=== PATIENT | male | born 1975 | race Caucasian/White ===

== ENCOUNTER 2016-12-01 16:00 | Observation (INO) | payer BC, MEDICAID ==
[2016-12-01] MEDS ORDERED: MORPHINE SULFATE INJ 2 MG IVP PRN (17:47)
[2016-12-01 18:21] LABS: BASOPHILS # (AUTO) 0.1 X10^3/uL (0.0-0.1); BASOPHILS % (AUTO) 0.6 % (0.2-1.0); EOSINOPHILS % (AUTO) 0.5 % (0.9-2.9); HEMATOCRIT 42.9 % (42.0-54.0); HEMOGLOBIN 14.5 g/dL (13.5-18.0); LYMPHOCYTES # (AUTO) 2.2 X10^3/uL (1.3-2.9); LYMPHOCYTES % (AUTO) 24.6 % (21.0-51.0); MEAN CORPUSCULAR HEMOGLOBIN 29.5 pg (27.0-34.0); MEAN CORPUSCULAR HGB CONC 33.7 g/dL (33.0-35.0); MEAN CORPUSCULAR VOLUME 87.3 fL (80.0-100.0); MEAN PLATELET VOLUME 9.9 fL (7.4-11.0); MONOCYTES # (AUTO) 0.4 x10^3/uL (0.3-0.8); MONOCYTES % (AUTO) 4.9 % (0.0-13.0); NEUTROPHILS # (AUTO) 6.3 x10^3/uL (2.2-4.8); NEUTROPHILS % (AUTO) 69.4 % (42.0-75.0); PLATELET COUNT 223 X10^3/uL (150.0-450.0); RED BLOOD COUNT 4.91 X10^6/uL (4.7-6.0); RED CELL DISTRIBUTION WIDTH 13.4 % (11.6-16.5); WHITE BLOOD COUNT 9.1 X10^3/uL (3.6-10.0)
[2016-12-01 18:34] LABS: ALANINE AMINOTRANSFERASE 22 Units/L (12-78); ALBUMIN 3.4 g/dL (3.4-5.0); ALKALINE PHOSPHATASE 111 Units/L (46-116); AMYLASE 105 Units/L (25-115); ASPARTATE AMINO TRANSFERASE 13 Units/L (15-37); BLOOD UREA NITROGEN 15 mg/dL (7-18); CARBON DIOXIDE 23.8 mmol/L (21-32); CHLORIDE 106 mmol/L (98-107); CHOL/HDL RATIO 3.3 (0.0-5.0); COR NA(FOR HYPERGLY) 142 mmol/L (136-145); CREATININE 1.32 mg/dL (0.70-1.30); GLUCOSE 134 mg/dL (65-99); LIPASE 668 Units/L (73-393); SODIUM 141 mmol/L (136-145); TOTAL PROTEIN 7.5 g/dL (6.4-8.2); eGFR BLACK RACES > 60 (>60); eGFR NON BLACK RACES > 60 (>60)
[2016-12-01] MEDS: PROTONIX INJ 40 MG VIAL 40 MG in NS 50 ML IV 50 ML IV SCH (19:30)
[2016-12-01] MEDS ORDERED: NS 250 ML IV 250 ML IV PRN (19:35)
[2016-12-01] MEDS: PHENERGAN INJ 25 MG IVP PRN (19:49)
--- NOTE | 2016-12-01 22:35 | DR.H&P ---
H&P - History & Physical for Day of: H&P Date: 12/01/16 - Chief Complaint Chief Complaint: Nausea and vomiting with abdominal pain. Elevated Lipase. - Allergies Allergies/Adverse Reactions: Allergies Allergy/AdvReac Type Severity Reaction Status Date / Time Penicillins AdvReac Severe ANAPHALEXIS Verified 12/01/16 18:37 REACTION - History of Present Illness History of Present Illness: The patient is a 41yo WM who is having increasing nausea with vomiting and abdominal pain. Patient states his Lipase has been increasing. States it was in the 400 range yesterday. Patient had Gastric Sleeve in April. Has been unable to eat since that time. States that he almost in August secondary to K= in 1.6 range and heart rate 25. States he has recently spent 5 weeks in [place]. 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 States that he is on TPN via a PICC. Does state that he had Cholecystectomy in thinking could be cause. - Past Surgical History Surgical History: Abdominal Surgery, Cholecystectomy Additional Surgical History: Gastric Sleeve 05/04, PICC Line - Family History Family Medical History: Hypertension - Social History Does patient currently use any type of tobacco product: No Have you used tobacco products in the last 12 months: No Type of Tobacco Use: None Does any household member use tobacco: No Alcohol Use: None Drug Use: None - Review of Systems Constitutional: Malaise Eyes: No Symptoms Reported ENT: No Symptoms Reported Respiratory: No Symptoms Reported Cardiovascular: No Symptoms Reported Gastrointestinal: See HPI, Nausea, Vomiting Genitourinary: No Symptoms Reported Musculoskeletal: No Symptoms Reported Skin: No Symptoms Reported Neurological: No Symptoms Reported - Physical Exam Vital Signs: Temperature 98.4 F Pulse Rate [Right Brachial] 60 Respiratory Rate 20 Blood Pressure [Right Arm] 126/60 O2 Sat by Pulse Oximetry 99 Oriented: Normal Eyes: Normal Ear: Normal Nose: Normal Throat: Normal Respiratory: Clear Throughout Cardiovascular: Normal : Normal Auscultation: Bowel Sounds: Normal Palpation: Normal Tenderness: LUQ, Epigastric Skin: Normal Musculoskeletal: Normal Psychiatric: Normal Mood Description: Calm Affect: Normal Speech Pattern: Clear - Assessment/Plan (1) Acute pancreatitis Qualifiers: Pancreatitis type: idiopathic Acute pancreatitis complication: A Qualified Code(s): K85.00 - Idiopathic acute pancreatitis without necrosis or infection Status: Acute Plan: NPO, Continue TPN, Shantelle/Lipase (2) Nausea and vomiting Qualifiers: Vomiting type: V Vomiting Intractability: intractable Status: Acute Plan: IV Phenergan, Zofran, Reglan, Protonix
[2016-12-01] MEDS ORDERED: PHARMACY CONSULT - TPN XX SCH (23:00)
[2016-12-01] MEDS: DILAUDID IVP PRN (23:08)
[2016-12-02 00:13] LABS: BILIRUBIN,URINE NEGATIVE (NEGATIVE); BLOOD/HEMOGLOBIN,URINE 1+ (NEGATIVE); GLUCOSE, URINE NEGATIVE (NEGATIVE); KETONES,URINE NEGATIVE (NEGATIVE); LEUKOCYTE ESTERASE ,URINE NEGATIVE (NEGATIVE); NITRITES,URINE NEGATIVE (NEGATIVE); PROTEIN,URINE 1+ (NEGATIVE); UROBILINOGEN,URINE NORMAL (NORMAL)
[2016-12-02 00:16] LABS: APPEARANCE,URINE CLEAR (CLEAR); BACTERIA,URINE TRACE /HPF (NEGATIVE); COLOR,URINE YELLOW (YELLOW); HYALINE CASTS, URINE FEW /LPF (NEGATIVE); MUCUS,URINE FEW /HPF (NEGATIVE); RBC,URINE 0-2 /HPF (NEGATIVE); SQUAMOUS EPITHELIAL CELL,UR RARE /HPF (NEGATIVE)
[2016-12-02] MEDS: PHENERGAN INJ 25 MG IVP PRN ×4 (03:44→23:37)
[2016-12-02] MEDS: DILAUDID IVP PRN ×5 (03:45→23:37)
[2016-12-02 05:44] LABS: BASOPHILS % (AUTO) 0.4 % (0.2-1.0); EOSINOPHILS # (AUTO) 0.1 x10^3/uL (0.0-0.2); EOSINOPHILS % (AUTO) 1.2 % (0.9-2.9); HEMATOCRIT 40.1 % (42.0-54.0); HEMOGLOBIN 13.4 g/dL (13.5-18.0); LYMPHOCYTES # (AUTO) 3.2 X10^3/uL (1.3-2.9); LYMPHOCYTES % (AUTO) 34.7 % (21.0-51.0); MEAN CORPUSCULAR HEMOGLOBIN 29.5 pg (27.0-34.0); MEAN CORPUSCULAR HGB CONC 33.4 g/dL (33.0-35.0); MEAN CORPUSCULAR VOLUME 88.3 fL (80.0-100.0); MEAN PLATELET VOLUME 10.8 fL (7.4-11.0); MONOCYTES # (AUTO) 0.7 x10^3/uL (0.3-0.8); MONOCYTES % (AUTO) 7.8 % (0.0-13.0); NEUTROPHILS # (AUTO) 5.1 x10^3/uL (2.2-4.8); NEUTROPHILS % (AUTO) 55.9 % (42.0-75.0); PLATELET COUNT 192 X10^3/uL (150.0-450.0); RED BLOOD COUNT 4.55 X10^6/uL (4.7-6.0); RED CELL DISTRIBUTION WIDTH 13.4 % (11.6-16.5); WHITE BLOOD COUNT 9.2 X10^3/uL (3.6-10.0)
[2016-12-02 05:51] LABS: ALANINE AMINOTRANSFERASE 16 Units/L (12-78); ALBUMIN 3.1 g/dL (3.4-5.0); ALKALINE PHOSPHATASE 100 Units/L (46-116); AMYLASE 106 Units/L (25-115); ASPARTATE AMINO TRANSFERASE 15 Units/L (15-37); BLOOD UREA NITROGEN 17 mg/dL (7-18); CARBON DIOXIDE 22.9 mmol/L (21-32); CHLORIDE 109 mmol/L (98-107); COR CA(FOR HYPOALB) 9.7 mg/dL (8.5-10.1); GLUCOSE 83 mg/dL (65-99); LIPASE 301 Units/L (73-393); SODIUM 141 mmol/L (136-145); eGFR BLACK RACES > 60 (>60); eGFR NON BLACK RACES > 60 (>60)
[2016-12-02] MEDS: PROTONIX INJ 40 MG VIAL 40 MG in NS 50 ML IV 50 ML IV SCH (09:08)
[2016-12-02] MEDS ORDERED: CLINIMIX 4.25 %/10 % 1,000 ML with MVI INJ (ADULT) 10 ML, TRACE ELEMENTS INJ 10 ML, TPN... IV SCH ×9 (10:00)
[2016-12-02] MEDS ORDERED: NS 25 ML IV 25 ML IV ONE (10:17)
[2016-12-02 10:48] VITALS: BMI 30.7
[2016-12-02] MEDS: REGLAN INJ 10 MG VIAL IVP PRN (13:17)
[2016-12-02] MEDS ORDERED: NS 100 ML IV 100 ML IV ONE (16:40)
[2016-12-02] MEDS: CLINIMIX 4.25 %/10 % 1,000 ML with MVI INJ (ADULT) 10 ML, TRACE ELEMENTS INJ 10 ML, TPN... IV SCH ×10 (17:38→23:36)
[2016-12-02] MEDS: LIPOSYN III 20% 250ML 250 ML IV SCH (21:50)
[2016-12-02] MEDS: ZOFRAN INJ 4 MG VIAL IVP PRN (22:13)
[2016-12-03] MEDS: DILAUDID IVP PRN (06:00)
[2016-12-03] MEDS: PHENERGAN INJ 25 MG IVP PRN ×3 (06:00→20:14)
[2016-12-03] MEDS: CLINIMIX 4.25 %/10 % 1,000 ML with MVI INJ (ADULT) 10 ML, TRACE ELEMENTS INJ 10 ML, TPN... IV SCH ×5 (06:07)
[2016-12-03 06:11] LABS: BASOPHILS # (AUTO) 0.1 X10^3/uL (0.0-0.1); BASOPHILS % (AUTO) 0.6 % (0.2-1.0); EOSINOPHILS # (AUTO) 0.1 x10^3/uL (0.0-0.2); EOSINOPHILS % (AUTO) 1.4 % (0.9-2.9); HEMATOCRIT 38.6 % (42.0-54.0); HEMOGLOBIN 12.6 g/dL (13.5-18.0); LYMPHOCYTES % (AUTO) 35.3 % (21.0-51.0); MEAN CORPUSCULAR HEMOGLOBIN 28.9 pg (27.0-34.0); MEAN CORPUSCULAR HGB CONC 32.7 g/dL (33.0-35.0); MEAN CORPUSCULAR VOLUME 88.4 fL (80.0-100.0); MEAN PLATELET VOLUME 10.3 fL (7.4-11.0); MONOCYTES # (AUTO) 0.6 x10^3/uL (0.3-0.8); MONOCYTES % (AUTO) 6.7 % (0.0-13.0); NEUTROPHILS # (AUTO) 4.8 x10^3/uL (2.2-4.8); PLATELET COUNT 165 X10^3/uL (150.0-450.0); RED BLOOD COUNT 4.37 X10^6/uL (4.7-6.0); RED CELL DISTRIBUTION WIDTH 13.6 % (11.6-16.5); WHITE BLOOD COUNT 8.6 X10^3/uL (3.6-10.0)
[2016-12-03 06:50] LABS: ALANINE AMINOTRANSFERASE 20 Units/L (12-78); ALBUMIN 2.9 g/dL (3.4-5.0); ALKALINE PHOSPHATASE 96 Units/L (46-116); AMYLASE 99 Units/L (25-115); ASPARTATE AMINO TRANSFERASE 13 Units/L (15-37); BLOOD UREA NITROGEN 18 mg/dL (7-18); CALCIUM 8.8 mg/dL (8.5-10.1); CARBON DIOXIDE 22.5 mmol/L (21-32); CHLORIDE 108 mmol/L (98-107); COR CA(FOR HYPOALB) 9.7 mg/dL (8.5-10.1); CREATININE 0.97 mg/dL (0.70-1.30); GLUCOSE 96 mg/dL (65-99); LIPASE 384 Units/L (73-393); SODIUM 141 mmol/L (136-145); TOTAL PROTEIN 6.4 g/dL (6.4-8.2); eGFR BLACK RACES > 60 (>60); eGFR NON BLACK RACES > 60 (>60)
--- NOTE | 2016-12-03 08:29 | CT ---
HISTORY: Nausea, vomiting, gastric sleeve procedure April 2016 Study: CT abdomen with contrast Comparison: Technique: Multiple axial images of the abdomen were obtained with IV contrast. Oral contrast was administered . Dose reduction techniques including Automated Exposure Control (AEC) and adjustment of mA and kV w ere utilized. Findings: There is a 5 mm noncalcified pulmonary nodule in the right lower lobe. Otherwise the lung bases are clear. Normal-sized heart with sternotomy changes noted. The spleen, pancreas, kidneys, and adrenal glands are normal. The gallbladder is removed. There is a hypodense lesion seen in the right hepati c lobe (axial image 44) that may represent a hemangioma or cyst. No free intraperitoneal air. No evidence of intestinal obstruction or inflammation. Postsurgical wai nges related to gastric sleeve are noted without evidence of intestinal obstruction in the field of view. No gross free fluid. The soft tissues and osseous structures are unremarkable. The vascular structures are unremarkable. No pathologically enlarged lymph nodes are identified. IMPRESSION: 1. Postsurgical changes related to gastric sleeve without complication. 2. 5 mm noncalcified right lower lobe pulmonary nodule. CT followup is recommended in 6 months. 3. 2 cm hypodense lesion in the peripheral right hepatic lobe, not completely characterized. Finding s could represent a cyst or hemangioma. Reported By:
--- NOTE | 2016-12-03 08:36 | PCM.PROG ---
Progress Note - Progress Note for Day of Date: 12/02/16 - Subjective Subjective: CO CONTINUED ABDOMINAL PAIN, N/V - Past Medical Family Social History Past Med/Fam/Surg Hx: No changes since H&P Allergies: Allergies Penicillins Adverse Reaction (Severe, Verified 12/01/16 18:37) ANAPHALEXIS REACTION - Review of Systems ROS: No change since H&P - Vital Signs and I&O's Vital Signs: Temperature 98.1 F Pulse Rate [Right Brachial] 66 Respiratory Rate 18 Blood Pressure [Right Arm] 116/56 O2 Sat by Pulse Oximetry 96 Intake and Output: Intake & Output 11/30/16 12/01/16 12/02/16 12/03/16 11:59 11:59 11:59 11:59 Intake Total 180 1999 Output Total 0 2 Balance 180 1997 - Physical Exam Oriented: Normal Eyes: Normal Ear: Normal Nose: Normal Throat: Normal Cardiovascular: Normal : Normal Auscultation: Bowel Sounds: Normal Tenderness: LUQ, Epigastric Skin: Normal Musculoskeletal: Normal Psychiatric: Normal Mood Description: Calm Affect: Normal Speech Pattern: Clear, Appropriate - Laboratory and Diagnostics Result Diagrams: 12/03/16 04:50 12/03/16 04:50 Labs: Laboratory WBC 8.6 X10^3/uL (3.6-10.0) 12/03/16 04:50 RBC 4.37 X10^6/uL (4.7-6.0) L 12/03/16 04:50 Hgb 12.6 g/dL (13.5-18.0) L 12/03/16 04:50 Hct 38.6 % (42.0-54.0) L 12/03/16 04:50 MCV 88.4 fL (80.0-100.0) 12/03/16 04:50 MCH 28.9 pg (27.0-34.0) 12/03/16 04:50 MCHC 32.7 g/dL (33.0-35.0) L 12/03/16 04:50 RDW 13.6 % (11.6-16.5) 12/03/16 04:50 Plt Count 165 X10^3/uL (150.0-450.0) 12/03/16 04:50 MPV 10.3 fL (7.4-11.0) 12/03/16 04:50 Neut % 56.0 % (42.0-75.0) 12/03/16 04:50 Lymph % 35.3 % (21.0-51.0) 12/03/16 04:50 [place] % 6.7 % (0.0-13.0) 12/03/16 04:50 Eos % 1.4 % (0.9-2.9) 12/03/16 04:50 Baso % 0.6 % (0.2-1.0) 12/03/16 04:50 Neut # 4.8 x10^3/uL (2.2-4.8) 12/03/16 04:50 Lymph # 3.0 X10^3/uL (1.3-2.9) H 12/03/16 04:50 [place] # 0.6 x10^3/uL (0.3-0.8) 12/03/16 04:50 Eos # 0.1 x10^3/uL (0.0-0.2) 12/03/16 04:50 Baso # 0.1 X10^3/uL (0.0-0.1) 12/03/16 04:50 Absolute Nucleated RBC 0.2 /100WBC 12/03/16 04:50 Sodium 141 mmol/L (136-145) 12/03/16 04:50 Corrected Sodium TNP 12/03/16 04:50 Potassium 4.6 mmol/L (3.5-5.1) 12/03/16 04:50 Chloride 108 mmol/L (98-107) H 12/03/16 04:50 Carbon Dioxide 22.5 mmol/L (21-32) 12/03/16 04:50 BUN 18 mg/dL (7-18) 12/03/16 04:50 Creatinine 0.97 mg/dL (0.70-1.30) 12/03/16 04:50 Est GFR (MDRD) Af Amer > 60 (>60) 12/03/16 04:50 Est GFR (MDRD) Non-Af > 60 (>60) 12/03/16 04:50 Glucose 96 mg/dL (65-99) 12/03/16 04:50 Calcium 8.8 mg/dL (8.5-10.1) 12/03/16 04:50 Corrected Calcium 9.7 mg/dL (8.5-10.1) 12/03/16 04:50 Total Bilirubin 0.10 mg/dL (0.2-1.0) L 12/03/16 04:50 AST 13 Units/L (15-37) L 12/03/16 04:50 ALT 20 Units/L (12-78) 12/03/16 04:50 Alkaline Phosphatase 96 Units/L (46-116) 12/03/16 04:50 Total Protein 6.4 g/dL (6.4-8.2) 12/03/16 04:50 Albumin 2.9 g/dL (3.4-5.0) L 12/03/16 04:50 Globulin 3.5 g/dL (2.5-4.5) 12/03/16 04:50 Albumin/Globulin Ratio 0.8 Ratio (1.1-2.1) L 12/03/16 04:50 Triglycerides 99 mg/dL (0-150) 12/01/16 18:15 Cholesterol 82 mg/dL (0-200) 12/01/16 18:15 LDL Cholesterol, Calc 37 mg/dL (0-100) 12/01/16 18:15 HDL Cholesterol 25 mg/dL (40-60) L 12/01/16 18:15 Cholesterol/HDL Ratio 3.3 (0.0-5.0) 12/01/16 18:15 Amylase 99 Units/L (25-115) 12/03/16 04:50 Lipase 384 Units/L (73-393) 12/03/16 04:50 Specimen Type Clean catch urine 12/01/16 23:45 Urine Color Yellow (YELLOW) 12/01/16 23:45 Urine Appearance Clear (CLEAR) 12/01/16 23:45 Urine pH 5.0 (5.0 - 8.0) 12/01/16 23:45 Ur Specific [place] 1.025 (1.000-1.030) 12/01/16 23:45 Urine Protein 1+ (NEGATIVE) 12/01/16 23:45 Urine Glucose (UA) Negative (NEGATIVE) 12/01/16 23:45 Urine Ketones Negative (NEGATIVE) 12/01/16 23:45 Urine Occult Blood 1+ (NEGATIVE) 12/01/16 23:45 Urine Nitrite Negative (NEGATIVE) 12/01/16 23:45 Urine Bilirubin Negative (NEGATIVE) 12/01/16 23:45 Urine Urobilinogen Normal (NORMAL) 12/01/16 23:45 Ur Leukocyte Esterase Negative (NEGATIVE) 12/01/16 23:45 Urine RBC 0-2 /HPF (NEGATIVE) 12/01/16 23:45 Urine WBC 0-1 /HPF (NEGATIVE) 12/01/16 23:45 Ur Squamous Epith Cells Rare /HPF (NEGATIVE) 12/01/16 23:45 Urine Bacteria Trace /HPF (NEGATIVE) 12/01/16 23:45 Hyaline Casts Few /LPF (NEGATIVE) 12/01/16 23:45 Urine Mucus Few /HPF (NEGATIVE) 12/01/16 23:45 Ur Culture Indicated? No/not indicated 12/01/16 23:45 - Plan (1) Acute pancreatitis Status: Acute Qualifiers: Pancreatitis type: idiopathic Acute pancreatitis complication: A Qualified Code(s): K85.00 - Idiopathic acute pancreatitis without necrosis or infection Plan: NPO, Continue TPN, Shantelle/Lipase IMPROVING, IV HYDRATION. REPEAT AM LABS, PAIN CONTROL (2) Nausea and vomiting Status: Acute Qualifiers: Vomiting type: V Vomiting Intractability: intractable Plan: IV Phenergan, Zofran, Reglan, Protonix
[2016-12-03] MEDS: PROTONIX INJ 40 MG VIAL 40 MG in NS 50 ML IV 50 ML IV SCH (09:44)
[2016-12-03] MEDS: ZOFRAN INJ 4 MG VIAL IVP PRN (09:44)
[2016-12-03] MEDS: REGLAN INJ 10 MG VIAL IVP PRN (09:44)
[2016-12-03] MEDS ORDERED: DILAUDID IVP PRN (12:16)
[2016-12-03] MEDS: PERCOCET TAB 5/325 MG PO PRN ×2 (13:57→20:15)
--- NOTE | 2016-12-03 14:52 | PCM.PROG ---
Progress Note - Progress Note for Day of Date: 12/03/16 - Subjective Subjective: CO CONTINUED ABDOMINAL PAIN AND NAUSEA. PT DOES FEEL LIKE HE COULD EAT. AMYLASE AND LIPASE NORMAL THIS AM. PT CLEAR LIQUID DIET ORDERED, DECREASE DILAUDID IV, PERCOCET PO. MONITOR, REPEAT AM LABS - Past Medical Family Social History Past Med/Fam/Surg Hx: No changes since H&P Allergies: Allergies Penicillins Adverse Reaction (Severe, Verified 12/01/16 18:37) ANAPHALEXIS REACTION - Review of Systems ROS: No change since H&P - Vital Signs and I&O's Vital Signs: Temperature 98.1 F Pulse Rate [Right Brachial] 66 Respiratory Rate 18 Blood Pressure [Right Arm] 116/56 O2 Sat by Pulse Oximetry 96 Intake and Output: Intake & Output 12/01/16 12/02/16 12/03/16 12/04/16 11:59 11:59 11:59 11:59 Intake Total 180 2000 Output Total 0 2 Balance 180 1997 - Physical Exam Oriented: Normal Eyes: Normal Ear: Normal Nose: Normal Throat: Normal Cardiovascular: Normal : Normal Auscultation: Bowel Sounds: Normal Tenderness: LUQ, Epigastric Skin: Normal Musculoskeletal: Normal Psychiatric: Normal Mood Description: Calm Affect: Normal Speech Pattern: Clear, Appropriate - Laboratory and Diagnostics Result Diagrams: 12/03/16 04:50 12/03/16 04:50 Labs: Laboratory WBC 8.6 X10^3/uL (3.6-10.0) 12/03/16 04:50 RBC 4.37 X10^6/uL (4.7-6.0) L 12/03/16 04:50 Hgb 12.6 g/dL (13.5-18.0) L 12/03/16 04:50 Hct 38.6 % (42.0-54.0) L 12/03/16 04:50 MCV 88.4 fL (80.0-100.0) 12/03/16 04:50 MCH 28.9 pg (27.0-34.0) 12/03/16 04:50 MCHC 32.7 g/dL (33.0-35.0) L 12/03/16 04:50 RDW 13.6 % (11.6-16.5) 12/03/16 04:50 Plt Count 165 X10^3/uL (150.0-450.0) 12/03/16 04:50 MPV 10.3 fL (7.4-11.0) 12/03/16 04:50 Neut % 56.0 % (42.0-75.0) 12/03/16 04:50 Lymph % 35.3 % (21.0-51.0) 12/03/16 04:50 [place] % 6.7 % (0.0-13.0) 12/03/16 04:50 Eos % 1.4 % (0.9-2.9) 12/03/16 04:50 Baso % 0.6 % (0.2-1.0) 12/03/16 04:50 Neut # 4.8 x10^3/uL (2.2-4.8) 12/03/16 04:50 Lymph # 3.0 X10^3/uL (1.3-2.9) H 12/03/16 04:50 [place] # 0.6 x10^3/uL (0.3-0.8) 12/03/16 04:50 Eos # 0.1 x10^3/uL (0.0-0.2) 12/03/16 04:50 Baso # 0.1 X10^3/uL (0.0-0.1) 12/03/16 04:50 Absolute Nucleated RBC 0.2 /100WBC 12/03/16 04:50 Sodium 141 mmol/L (136-145) 12/03/16 04:50 Corrected Sodium TNP 12/03/16 04:50 Potassium 4.6 mmol/L (3.5-5.1) 12/03/16 04:50 Chloride 108 mmol/L (98-107) H 12/03/16 04:50 Carbon Dioxide 22.5 mmol/L (21-32) 12/03/16 04:50 BUN 18 mg/dL (7-18) 12/03/16 04:50 Creatinine 0.97 mg/dL (0.70-1.30) 12/03/16 04:50 Est GFR (MDRD) Af Amer > 60 (>60) 12/03/16 04:50 Est GFR (MDRD) Non-Af > 60 (>60) 12/03/16 04:50 Glucose 96 mg/dL (65-99) 12/03/16 04:50 Calcium 8.8 mg/dL (8.5-10.1) 12/03/16 04:50 Corrected Calcium 9.7 mg/dL (8.5-10.1) 12/03/16 04:50 Total Bilirubin 0.10 mg/dL (0.2-1.0) L 12/03/16 04:50 AST 13 Units/L (15-37) L 12/03/16 04:50 ALT 20 Units/L (12-78) 12/03/16 04:50 Alkaline Phosphatase 96 Units/L (46-116) 12/03/16 04:50 Total Protein 6.4 g/dL (6.4-8.2) 12/03/16 04:50 Albumin 2.9 g/dL (3.4-5.0) L 12/03/16 04:50 Globulin 3.5 g/dL (2.5-4.5) 12/03/16 04:50 Albumin/Globulin Ratio 0.8 Ratio (1.1-2.1) L 12/03/16 04:50 Triglycerides 99 mg/dL (0-150) 12/01/16 18:15 Cholesterol 82 mg/dL (0-200) 12/01/16 18:15 LDL Cholesterol, Calc 37 mg/dL (0-100) 12/01/16 18:15 HDL Cholesterol 25 mg/dL (40-60) L 12/01/16 18:15 Cholesterol/HDL Ratio 3.3 (0.0-5.0) 12/01/16 18:15 Amylase 99 Units/L (25-115) 12/03/16 04:50 Lipase 384 Units/L (73-393) 12/03/16 04:50 Specimen Type Clean catch urine 12/01/16 23:45 Urine Color Yellow (YELLOW) 12/01/16 23:45 Urine Appearance Clear (CLEAR) 12/01/16 23:45 Urine pH 5.0 (5.0 - 8.0) 12/01/16 23:45 Ur Specific [place] 1.025 (1.000-1.030) 12/01/16 23:45 Urine Protein 1+ (NEGATIVE) 12/01/16 23:45 Urine Glucose (UA) Negative (NEGATIVE) 12/01/16 23:45 Urine Ketones Negative (NEGATIVE) 12/01/16 23:45 Urine Occult Blood 1+ (NEGATIVE) 12/01/16 23:45 Urine Nitrite Negative (NEGATIVE) 12/01/16 23:45 Urine Bilirubin Negative (NEGATIVE) 12/01/16 23:45 Urine Urobilinogen Normal (NORMAL) 12/01/16 23:45 Ur Leukocyte Esterase Negative (NEGATIVE) 12/01/16 23:45 Urine RBC 0-2 /HPF (NEGATIVE) 12/01/16 23:45 Urine WBC 0-1 /HPF (NEGATIVE) 12/01/16 23:45 Ur Squamous Epith Cells Rare /HPF (NEGATIVE) 12/01/16 23:45 Urine Bacteria Trace /HPF (NEGATIVE) 12/01/16 23:45 Hyaline Casts Few /LPF (NEGATIVE) 12/01/16 23:45 Urine Mucus Few /HPF (NEGATIVE) 12/01/16 23:45 Ur Culture Indicated? No/not indicated 12/01/16 23:45 - Plan (1) Acute pancreatitis Status: Acute Qualifiers: Pancreatitis type: idiopathic Acute pancreatitis complication: A Qualified Code(s): K85.00 - Idiopathic acute pancreatitis without necrosis or infection Plan: NPO, Continue TPN, Shantelle/Lipase IMPROVING, IV HYDRATION. REPEAT AM LABS, PAIN CONTROL. CT REPORT ON CHART, NO ACUTE FINDINGS (2) Nausea and vomiting Status: Acute Qualifiers: Vomiting type: V Vomiting Intractability: intractable Plan: IV Phenergan, Zofran, Reglan, Protonix (3) Pulmonary nodule Status: Acute Plan: SEE CT REPORT, WILL REQUIRE OUT FOLLOW UP. FAX CT REPORT TO PCP
[2016-12-03] MEDS ORDERED: CLINIMIX 4.25 %/10 % 1,000 ML with MVI INJ (ADULT) 10 ML, TRACE ELEMENTS INJ 10 ML, TPN... IV SCH ×5 (16:00)
[2016-12-03] MEDS ORDERED: ATARAX TAB 25 MG PO PRN (16:02)
[2016-12-03] MEDS ORDERED: ULTRAM PO PRN (16:02)
[2016-12-03] MEDS: LIPOSYN III 20% 250ML 250 ML IV SCH (20:15)
[2016-12-03] MEDS ORDERED: AMBIEN PO SCH (21:00)
[2016-12-04] MEDS: PERCOCET TAB 5/325 MG PO PRN (03:44)
[2016-12-04] MEDS: PHENERGAN INJ 25 MG IVP PRN (03:45)
[2016-12-04] MEDS ORDERED: PATIENT'S HOME MEDICATION PO SCH (09:00)
[2016-12-04 09:35] VITALS: BP 101/61
[2016-12-04] MEDS: PROTONIX INJ 40 MG VIAL 40 MG in NS 50 ML IV 50 ML IV SCH (10:29)
== END 2016-12-04 11:30 | disposition home or self-care (01) ==
LOC: MED/SURG 16:00
PROVIDERS: ADMIT Internal Medicine; ATTEND Internal Medicine
DX: K85.00 Idiopathic acute pancreatitis without necrosis or infection (principal); R11.2 Nausea with vomiting, unspecified; R74.8 Abnormal levels of other serum enzymes; R91.1 Solitary pulmonary nodule; D64.89 Other specified anemias; Z93.1 Gastrostomy status; R10.84 Generalized abdominal pain
CPT/HCPCS: 36415; 74160; 80053; 80061; 81001; 82150; 83690; 85025; A4216; A4222; B4189; C9113; G0378; J2270; J2405; J2550; J2765

== ENCOUNTER 2017-01-26 11:21 | Day surgery (SDC) | payer BC, MEDICAID ==
[2017-01-26] MEDS ORDERED: XYLOCAINE 1 % (PLAIN) ONE (12:08)
[2017-01-26 12:32] VITALS: BP 111/68
--- NOTE | 2017-01-26 12:48 | DR.H&P ---
H&P - History & Physical for Day of: H&P Date: 01/26/17 - Chief Complaint Chief Complaint: My PICC line is infected - Allergies Allergies/Adverse Reactions: Allergies Allergy/AdvReac Type Severity Reaction Status Date / Time Penicillins AdvReac Severe ANAPHALEXIS Verified 12/01/16 18:37 REACTION - History of Present Illness History of Present Illness: Pt is S/P gastric sleve. No unable to tolerate liquids or solids PO. Has been on correction TPN at home with PICC that was placed in Sep 2016. Recent increase in WBCs. PICC considered as source by PCP. Here for removal and replacement of PICC - Past Surgical History Surgical History: Abdominal Surgery, Cholecystectomy, Other Additional Surgical History: Gastric Sleeve 05/04, PICC Line; Median Sternotomy for Thymus biospy - Family History Family Medical History: Hypertension - Social History Does patient currently use any type of tobacco product: Yes Have you used tobacco products in the last 12 months: Yes Type of Tobacco Use: Cigarettes Alcohol Use: Occasionally Drug Use: None - Review of Systems Constitutional: See HPI Eyes: No Symptoms Reported ENT: No Symptoms Reported Respiratory: No Symptoms Reported Cardiovascular: No Symptoms Reported Gastrointestinal: See HPI, Nausea, Vomiting, Abdominal Pain Genitourinary: No Symptoms Reported Musculoskeletal: No Symptoms Reported Skin: No Symptoms Reported Neurological: No Symptoms Reported - Physical Exam Vital Signs: Temperature 97.0 F Pulse Rate 60 Respiratory Rate 18 Blood Pressure [Right Arm] 101/61 Blood Pressure 111/68 O2 Sat by Pulse Oximetry 100 Oriented: Normal Eyes: Normal Ear: Normal Nose: Normal Throat: Normal Respiratory: Clear Throughout Cardiovascular: Normal : Normal Auscultation: Bowel Sounds: Normal Palpation: Normal Tenderness: Normal Skin: Other (Left UE PICC with dressing CDI no redness swelling or erthema) Musculoskeletal: Normal Psychiatric: Normal Mood Description: Calm, Appropriate Affect: Normal Speech Pattern: Clear, Appropriate - Assessment/Plan (1) Malnutrition Status: Acute (2) Nausea and vomiting Qualifiers: Vomiting type: cyclical vomiting Vomiting Intractability: intractable Qualified Code(s): G43.A1 - Cyclical vomiting, intractable Status: Acute Plan: Removal of Left PICC with skin and tip C/S. Replacement of PICC to RUE Procedures (ALL) - Central Line Placement PCM.CLCO: written consent Time out performed: Yes Patient placed pm monitor/pulse ox: Yes MD prep: mask, gown, gloves Centrial line prep: chlorhexidine scrub, sterile drapes applied Local anesthsia used: lidocane 1% Ultrasound used for placement: Yes (R bascillic with adequate patency and caliber) Central line lumen ininserted: double (5fr double Lumen power PICC) Post procedure: good blood return, all ports aspirated, flushed,capped, sterile dressing applied Post procedure xray: tip oc catheter in good position Patient tolerated procedure: Yes Complications: none
--- NOTE | 2017-01-26 12:54 | RAD ---
HISTORY: PICC line placement. Study: Chest one view Comparison: None. Findings: The trachea is midline. The cardiac silhouette is unremarkable. Median sternotomy wires are noted. There is a right-sided PICC line catheter in place, the tip of which projects above the level of the cavoatrial junction. The lungs are clear without focal infiltrate or effusion. The bony thorax is unremarkable. IMPRESSION: 1. No acute cardiopulmonary disease. 2. Right-sided PICC line catheter in place, the tip of which projects over the SVC, above the level of the cavoatrial junction. Reported By:
== END 2017-01-26 12:45 | disposition home or self-care (01) | DRG 316 ==
LOC: SURG1 11:21
PROVIDERS: ATTEND Internal Medicine
PROC: 02HV33Z Insertion of Infusion Device into Superior Vena Cava, Percutaneous Approach (ICD-10-PCS; principal; 2017-01-26)
PROC: 02PYX3Z Removal of Infusion Device from Great Vessel, External Approach (ICD-10-PCS; principal; 2017-01-26)
PROC: B548ZZA Ultrasonography of Superior Vena Cava, Guidance (ICD-10-PCS; principal; 2017-01-26)
DX: T80.218A Other infection due to central venous catheter, initial encounter (principal); R62.7 Adult failure to thrive; Y83.2 Surgical operation with anastomosis, bypass or graft as the cause of abnormal reaction of the patient, or of later complication, without mention of misadventure at the time of the procedure
CPT/HCPCS: 71010; 87070; 87075; 87077; 87186; 87205; A4222; J2001

== ENCOUNTER 2017-03-29 11:32 | Observation (INO) | payer BC, MEDICAID ==
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
[2017-03-29] MEDS ORDERED: ZOFRAN INJ 4 MG VIAL IVP PRN (13:42)
[2017-03-29] MEDS ORDERED: PEPCID 20 MG IV PREMIX* 20 MG/50 ML BAG IV PRN (13:42)
[2017-03-29] MEDS ORDERED: MORPHINE SULFATE INJ 2 MG IVP PRN (13:42)
[2017-03-29 14:24] LABS: MAGNESIUM 1.2 mg/dL (1.7-2.9)
[2017-03-29] MEDS: NS 1000 ML 1,000 ML IV SCH (14:49)
[2017-03-29] MEDS: PHENERGAN INJ 25 MG IVP PRN (14:49)
--- NOTE | 2017-03-29 14:58 | CT ---
HISTORY: Abdominal pain, recent gastric bypass. Study: CT abdomen and pelvis without contrast Comparison: CT abdomen/pelvis dated December 02, 2016. Technique: Multiple axial images of the abdomen and pelvis were obtained from the lung bases to the pubic symph ysis without the administration of IV contrast. Dose reduction techniques including Automated Expos ure Control (AEC) and adjustment of mA and kV were utilized. Findings: The visualized portions of the lung bases are unremarkable. 2 cm right lateral liver lobe hepatic c yst. The gallbladder is surgically absent. Postsurgical changes status post gastric bypass. Interval placement of a PEG tube within a loop of small bowel. The tube appears to be partially out of the s mall bowel lumen. Otherwise, the liver, spleen, pancreas, kidneys, and adrenal glands are unremarkab le in their CT appearance. No significant mesenteric lymphadenopathy or stranding can be observed. No free fluid or free air is seen within the abdomen. Scattered colonic diverticular without evide nce of diverticulitis. Remaining large and small bowel are unremarkable. The appendix appears normal . The prostate gland demonstrates punctate calcifications, but is otherwise unremarkable. The bladde r is collapsed and not adequately evaluated. The bony structures are grossly intact. IMPRESSION: 1. No CT evidence of acute abdominal/pelvic pathology. 2. PEG tube within a loop of small bowel but appears to be partially extruded. Recommend clinical co rrelation for function. 3. Postsurgical changes as above. Reported By:
[2017-03-29 14:59] VITALS: BMI 30.9
[2017-03-29] MEDS ORDERED: DILAUDID INJ IVP PRN (17:14)
[2017-03-29] MEDS: DILAUDID INJ IVP PRN ×2 (18:23→23:27)
[2017-03-29] MEDS: PERCOCET TAB 5/325 MG PO PRN (20:01)
[2017-03-29] MEDS ORDERED: PHENERGAN TAB 25 MG PO PRN (22:32)
[2017-03-29] MEDS ORDERED: AMBIEN PO PRN (22:32)
[2017-03-29 22:47] LABS: BASOPHILS % (AUTO) 0.7 % (0.2-1.0); EOSINOPHILS # (AUTO) 0.1 x10^3/uL (0.0-0.2); EOSINOPHILS % (AUTO) 1.5 % (0.9-2.9); HEMATOCRIT 38.8 % (42.0-54.0); HEMOGLOBIN 13.3 g/dL (13.5-18.0); LYMPHOCYTES # (AUTO) 2.7 X10^3/uL (1.3-2.9); LYMPHOCYTES % (AUTO) 43.2 % (21.0-51.0); MEAN CORPUSCULAR HEMOGLOBIN 29.7 pg (27.0-34.0); MEAN CORPUSCULAR HGB CONC 34.3 g/dL (33.0-35.0); MEAN CORPUSCULAR VOLUME 86.7 fL (80.0-100.0); MEAN PLATELET VOLUME 10.8 fL (7.4-11.0); MONOCYTES # (AUTO) 0.5 x10^3/uL (0.3-0.8); MONOCYTES % (AUTO) 8.1 % (0.0-13.0); NEUTROPHILS % (AUTO) 46.5 % (42.0-75.0); PLATELET COUNT 112 X10^3/uL (150.0-450.0); RED BLOOD COUNT 4.48 X10^6/uL (4.7-6.0); RED CELL DISTRIBUTION WIDTH 14.2 % (11.6-16.5); WHITE BLOOD COUNT 6.4 X10^3/uL (3.6-10.0)
[2017-03-29 22:52] LABS: BLOOD UREA NITROGEN 6 mg/dL (7-18); CARBON DIOXIDE 32.9 mmol/L (21-32); CHLORIDE 105 mmol/L (98-107); CREATININE 1.02 mg/dL (0.70-1.30); GLUCOSE 90 mg/dL (65-99); SODIUM 143 mmol/L (136-145); eGFR BLACK RACES > 60 (>60); eGFR NON BLACK RACES > 60 (>60)
[2017-03-29 22:57] LABS: ALANINE AMINOTRANSFERASE 17 Units/L (12-78); ALKALINE PHOSPHATASE 101 Units/L (46-116); ASPARTATE AMINO TRANSFERASE 15 Units/L (15-37); COR CA(FOR HYPOALB) 8.8 mg/dL (8.5-10.1); TOTAL PROTEIN 6.2 g/dL (6.4-8.2)
[2017-03-29] MEDS ORDERED: POTASSIUM CHLORIDE LIQ 20 MEQ UDC PO PRN (23:04)
[2017-03-29] MEDS ORDERED: K-LYTE EFFERVESCENT PO PRN (23:04)
[2017-03-29] MEDS ORDERED: K-RIDER 10 MEQ/NS 100 ML 10 MEQ/100 ML BAG IV PRN (23:04)
[2017-03-29] MEDS ORDERED: K-DUR TAB 20 MEQ PO PRN (23:04)
[2017-03-29 23:32] LABS: BILIRUBIN,URINE NEGATIVE (NEGATIVE); BLOOD/HEMOGLOBIN,URINE NEGATIVE (NEGATIVE); GLUCOSE, URINE NEGATIVE (NEGATIVE); KETONES,URINE NEGATIVE (NEGATIVE); LEUKOCYTE ESTERASE ,URINE NEGATIVE (NEGATIVE); NITRITES,URINE NEGATIVE (NEGATIVE); PROTEIN,URINE 2+ (NEGATIVE); UROBILINOGEN,URINE NORMAL (NORMAL)
[2017-03-29 23:40] LABS: APPEARANCE,URINE CLEAR (CLEAR); BACTERIA,URINE TRACE /HPF (NEGATIVE); COLOR,URINE YELLOW (YELLOW); MUCUS,URINE MODERATE /HPF (NEGATIVE); RBC,URINE NONE SEEN /HPF (NEGATIVE); SQUAMOUS EPITHELIAL CELL,UR RARE /HPF (NEGATIVE)
[2017-03-29] MEDS: MAGNESIUM SULFATE 1 GM/100 mL PREMIX 1 GM/100 ML BAG IV SCH (23:47)
[2017-03-30] MEDS: PHENERGAN INJ 25 MG IVP PRN ×4 (00:04→18:08)
[2017-03-30] MEDS: MAGNESIUM SULFATE 1 GM/100 mL PREMIX 1 GM/100 ML BAG IV SCH ×3 (01:10→03:37)
[2017-03-30] MEDS: K-RIDER 10 MEQ/NS 100 ML 10 MEQ/100 ML BAG IV SCH ×4 (01:11→12:02)
[2017-03-30] MEDS ORDERED: MAGNESIUM SULFATE 1 GM/100 mL PREMIX 1 GM/100 ML BAG IV ONE (03:34)
[2017-03-30] MEDS: DILAUDID INJ IVP PRN ×4 (03:39→18:08)
[2017-03-30] MEDS: NS 1000 ML 1,000 ML IV SCH ×2 (03:41→12:03)
[2017-03-30 05:25] LABS: BASOPHILS % (AUTO) 0.6 % (0.2-1.0); EOSINOPHILS # (AUTO) 0.1 x10^3/uL (0.0-0.2); EOSINOPHILS % (AUTO) 1.5 % (0.9-2.9); HEMATOCRIT 43.4 % (42.0-54.0); HEMOGLOBIN 14.7 g/dL (13.5-18.0); LYMPHOCYTES # (AUTO) 3.5 X10^3/uL (1.3-2.9); LYMPHOCYTES % (AUTO) 45.1 % (21.0-51.0); MEAN CORPUSCULAR HEMOGLOBIN 29.6 pg (27.0-34.0); MEAN CORPUSCULAR HGB CONC 33.9 g/dL (33.0-35.0); MEAN CORPUSCULAR VOLUME 87.4 fL (80.0-100.0); MEAN PLATELET VOLUME 11.2 fL (7.4-11.0); MONOCYTES # (AUTO) 0.6 x10^3/uL (0.3-0.8); MONOCYTES % (AUTO) 7.5 % (0.0-13.0); NEUTROPHILS # (AUTO) 3.5 x10^3/uL (2.2-4.8); NEUTROPHILS % (AUTO) 45.3 % (42.0-75.0); PLATELET COUNT 153 X10^3/uL (150.0-450.0); RED BLOOD COUNT 4.97 X10^6/uL (4.7-6.0); RED CELL DISTRIBUTION WIDTH 14.1 % (11.6-16.5); WHITE BLOOD COUNT 7.7 X10^3/uL (3.6-10.0)
[2017-03-30 05:41] LABS: ALANINE AMINOTRANSFERASE 21 Units/L (12-78); ALBUMIN 3.4 g/dL (3.4-5.0); ALKALINE PHOSPHATASE 112 Units/L (46-116); ASPARTATE AMINO TRANSFERASE 20 Units/L (15-37); BLOOD UREA NITROGEN 5 mg/dL (7-18); CALCIUM 8.5 mg/dL (8.5-10.1); CARBON DIOXIDE 28.5 mmol/L (21-32); CHLORIDE 104 mmol/L (98-107); COR NA(FOR HYPERGLY) 143 mmol/L (136-145); CREATININE 1.23 mg/dL (0.70-1.30); GLUCOSE 111 mg/dL (65-99); SODIUM 143 mmol/L (136-145); eGFR BLACK RACES > 60 (>60); eGFR NON BLACK RACES > 60 (>60)
[2017-03-30] MEDS: PERCOCET TAB 5/325 MG PO PRN (06:05)
[2017-03-30] MEDS ORDERED: POTASSIUM CHLORIDE LIQ 20 MEQ UDC PO SCH (09:00)
[2017-03-30] MEDS ORDERED: NORCO 5/325 MG TAB PO SCH (09:00)
[2017-03-30] MEDS ORDERED: PEPCID 20 MG IV PREMIX* 20 MG/50 ML BAG IV SCH (16:00)
[2017-03-30] MEDS ORDERED: CARAFATE SUSP 1 GM/10 ML PO SCH (16:30)
[2017-03-30 17:39] VITALS: BP 128/76
[2017-03-30] MEDS ORDERED: ZANAFLEX PO SCH (21:00)
== END 2017-03-30 18:20 | disposition short-term general hospital (02) ==
LOC: MED/SURG 11:32 → UNDOADMOB 11:32 → MED/SURG 13:10
PROVIDERS: ADMIT Internal Medicine; ATTEND Internal Medicine
DX: E86.0 Dehydration (principal); R10.84 Generalized abdominal pain; E46 Unspecified protein-calorie malnutrition; R10.13 Epigastric pain; R06.02 Shortness of breath; Z98.84 Bariatric surgery status; R11.2 Nausea with vomiting, unspecified; F32.89 Other specified depressive episodes; Z87.19 Personal history of other diseases of the digestive system; T85.528A Displacement of other gastrointestinal prosthetic devices, implants and grafts, initial encounter; R26.89 Other abnormalities of gait and mobility; D64.89 Other specified anemias; E87.6 Hypokalemia
CPT/HCPCS: 36415; 74150; 80053; 81001; 82150; 83690; 83735; 84132; 85025; A4216; A4222; Q0169; S0028; G0378; J2270; J2550; J3480

== ENCOUNTER 2017-04-14 13:09 | Emergency (ER) | payer BC, MEDICAID ==
[2017-04-14 13:15] VITALS: BP 128/75; BMI 40.0
--- NOTE | 2017-04-14 13:52 | DR.SEIZA ---
HPI - Time Seen Time seen: 13:49 - Primary Care Physician Primary Care Physician: Dwayne - Complaints Chief Complaint Doctors Comments: Seizure activity per . Chief Complaint:: seizure like activity Self Treatment fo Chief Complaint: started about 45 mins ago - Reviewed Nurses Notes Reviewed: Yes - Source History Provided: Patient, Family Member - Mode of Arrival Mode of Arrival: EMS - Timing Onset of Chief Complaint: 04/14/17 - Duration Since Onset: Since Onset (2-3 minutes) - Quality Quality: Shaking - Location Location: Generalized - Context Prior to Seizure:: Normal During Seizure: None, LOC Immediately After Seizure: Confusion History of:: denies: Seizure Disorder, Febrile seizures, Cancer, Substance Abuse , Immunosuppression, Hypoglycemia, Mental Retardation, Recent Head Trauma Medication Compliance: Yes - Associated Signs and Symptoms Associated Signs and Symptoms:: Nausea, Vomiting, Other (abdominal pain) PMH - PMH Past Medical History: No Past Medical History: Depression Past Surgical History: Yes Surgical History: Cholecystectomy, Weight Loss Surgery Past Surgical History Comment: past feeding tube, - Family History History of Family Medical Conditions: Yes Family Medical History: Cancer - Social History Does patient currently use any type of tobacco product: No Have you used tobacco products in the last 12 months: No Type of Tobacco Use: None Alcohol Use: None Do you use any recreational Drugs:: No Lives With: Spouse Lives Where: Home - infectious screening In the last 2 months have you had wt loss of >10#?: NO Have you had fever, night sweats or hemotysis?: No Have you traveled outside the country in the last 6 months?: No Isolation: Standard ROS - Review of Systems Constitutional: No Symptoms Reported Eyes: No Symptoms Reported ENTM: No Symptoms Reported Respiratoy: No Symptoms Reported Cardiovascular: No Symptoms Reported Gastrointestinal/Abdominal: No Symptoms Reported, Abdominal Pain, Diarrhea, Nausea, Vomiting Genitourinary: No Symptoms Reported Neurological: No Symptoms Reported Musculoskeletal: No Symptoms Reported Integumentary: No Symptoms Reported Hematologic/Lymphatic: No Symptoms Reported Endocrine: No Symptoms Reported Psychiatric: Depression PE - Vital Signs Vitals: Temperature 98.2 F Pulse Rate 68 Respiratory Rate 20 Blood Pressure [Right Arm] 128/76 Blood Pressure 128/75 O2 Sat by Pulse Oximetry 100 - General Limitations: No Limitations General Appearance: Alert, In No Apparent Distress - Head Head Exam: Normal Inspection, Atraumatic - Eyes Eye exam: Normal Appearance, PERRL, EOMI Pupils: Regular, Round: Bilateral, Reactive: Bilateral Sclera/Conjunctival: Normal Inspection: Bilateral - ENT ENT Exam: Normal Exam, Normal Oropharynx, Normal External Ear Exam, Mucous Membranes Moist Mouth Exam: Normal Inspection - Neck Neck Exam: Normal Inspection, Full ROM, Trachea Midline - Chest Chest Inspection: Normal Inspection, Symmetric Chest Wall Rise - Respiratory Respiratory Exam: Normal Lung Sounds Bilat Respiratory Exam: Bilateral Clear to Auscultation - Cardiovascular Cardiovascular Exam: Regular Rate, Normal Rhythm, Normal Heart Sounds - Abdominal Exam Abdominal Exam: Soft, Tenderness, Hyperactive Bowel Sounds. negative: Rebound Abdominal Tenderness: RUQ, LUQ, LLQ, Epigastrium - Extremities Extremities Exam: Normal Inspection, Full ROM - Back Back Exam: Normal Inspection, Full ROM - Neurologic Neurological Exam: Alert, Oriented X3, CN II-XII Intact Patient Oriented To: Person, Place, Time Speech: Fluid Speech Cranial Nerve Exam: EOM Function (II, III, IV, ): Normal, Facial Sensation (V) : Normal, Facial Palsy (VII): Normal, Gag reflex (XI): Normal, Spinal Accessory Function (XI): Normal, Tongue Deviation: Normal Motor Strength - LUE: 5/5 Motor Strength - RUE: 5/5 Motor Strength - LLE: 5/5 Motor Strength - RLE: 5/5 - Psychiatric Psychiatric Exam: Normal Affect, Normal Mood - Skin Skin Exam: Warm, Dry, Intact, Normal Color ROR - Labs Reviewed Result Diagrams: 04/14/17 14:12 04/14/17 14:12 Laboratory: WBC 5.5 X10^3/uL (3.6-10.0) 04/14/17 14:12 RBC 4.93 X10^6/uL (4.7-6.0) 04/14/17 14:12 Hgb 14.7 g/dL (13.5-18.0) 04/14/17 14:12 Hct 42.6 % (42.0-54.0) 04/14/17 14:12 MCV 86.5 fL (80.0-100.0) 04/14/17 14:12 MCH 29.8 pg (27.0-34.0) 04/14/17 14:12 MCHC 34.5 g/dL (33.0-35.0) 04/14/17 14:12 RDW 14.4 % (11.6-16.5) 04/14/17 14:12 Plt Count 141 X10^3/uL (150.0-450.0) L 04/14/17 14:12 MPV 10.0 fL (7.4-11.0) 04/14/17 14:12 Neut % 78.6 % (42.0-75.0) H 04/14/17 14:12 Lymph % 14.0 % (21.0-51.0) L 04/14/17 14:12 [place] % 6.2 % (0.0-13.0) 04/14/17 14:12 Eos % 0.7 % (0.9-2.9) L 04/14/17 14:12 Baso % 0.5 % (0.2-1.0) 04/14/17 14:12 Neut # 4.3 x10^3/uL (2.2-4.8) 04/14/17 14:12 Lymph # 0.8 X10^3/uL (1.3-2.9) L 04/14/17 14:12 [place] # 0.3 x10^3/uL (0.3-0.8) 04/14/17 14:12 Eos # 0.0 x10^3/uL (0.0-0.2) 04/14/17 14:12 Baso # 0.0 X10^3/uL (0.0-0.1) 04/14/17 14:12 Absolute Nucleated RBC 0.0 /100WBC 04/14/17 14:12 Sodium 141 mmol/L (136-145) 04/14/17 14:12 Corrected Sodium TNP 04/14/17 14:12 Potassium 3.2 mmol/L (3.5-5.1) L 04/14/17 14:12 Chloride 104 mmol/L (98-107) 04/14/17 14:12 Carbon Dioxide 34.3 mmol/L (21-32) H 04/14/17 14:12 BUN 5 mg/dL (7-18) L 04/14/17 14:12 Creatinine 0.90 mg/dL (0.70-1.30) 04/14/17 14:12 Est GFR (MDRD) Af Amer > 60 (>60) 04/14/17 14:12 Est GFR (MDRD) Non-Af > 60 (>60) 04/14/17 14:12 Glucose 92 mg/dL (65-99) 04/14/17 14:12 Calcium 8.5 mg/dL (8.5-10.1) 04/14/17 14:12 Corrected Calcium 9.2 mg/dL (8.5-10.1) 04/14/17 14:12 Total Bilirubin 0.30 mg/dL (0.2-1.0) 04/14/17 14:12 AST 32 Units/L (15-37) 04/14/17 14:12 ALT 27 Units/L (12-78) 04/14/17 14:12 Alkaline Phosphatase 142 Units/L (46-116) H 04/14/17 14:12 Total Protein 6.7 g/dL (6.4-8.2) 04/14/17 14:12 Albumin 3.1 g/dL (3.4-5.0) L 04/14/17 14:12 Globulin 3.6 g/dL (2.5-4.5) 04/14/17 14:12 Albumin/Globulin Ratio 0.9 Ratio (1.1-2.1) L 04/14/17 14:12 Amylase 109 Units/L (25-115) 04/14/17 14:12 Lipase 217 Units/L (73-393) 04/14/17 14:12 H. pylori IgG Antibody Negative (NEGATIVE) 04/14/17 14:12 - Diagnosis Discharge Problem: Hypokalemia, Pseudoseizures - Discharge Plan Disposition: 01 HOME, SELF-CARE Condition: Stable - Follow ups/Referrals Follow ups/Referrals: DERIK FERGUSON [Primary Care Provider] - 3 days - Instructions Instructions: Nausea, Adult, Muscle Cramps and Spasms, [id number], Muscle Cramps and Spasms, Nonepileptic Seizures, Electrolytes Test
[2017-04-14 14:23] LABS: BASOPHILS % (AUTO) 0.5 % (0.2-1.0); EOSINOPHILS % (AUTO) 0.7 % (0.9-2.9); HEMATOCRIT 42.6 % (42.0-54.0); HEMOGLOBIN 14.7 g/dL (13.5-18.0); LYMPHOCYTES # (AUTO) 0.8 X10^3/uL (1.3-2.9); MEAN CORPUSCULAR HEMOGLOBIN 29.8 pg (27.0-34.0); MEAN CORPUSCULAR HGB CONC 34.5 g/dL (33.0-35.0); MEAN CORPUSCULAR VOLUME 86.5 fL (80.0-100.0); MONOCYTES # (AUTO) 0.3 x10^3/uL (0.3-0.8); MONOCYTES % (AUTO) 6.2 % (0.0-13.0); NEUTROPHILS # (AUTO) 4.3 x10^3/uL (2.2-4.8); NEUTROPHILS % (AUTO) 78.6 % (42.0-75.0); PLATELET COUNT 141 X10^3/uL (150.0-450.0); RED BLOOD COUNT 4.93 X10^6/uL (4.7-6.0); RED CELL DISTRIBUTION WIDTH 14.4 % (11.6-16.5); WHITE BLOOD COUNT 5.5 X10^3/uL (3.6-10.0)
[2017-04-14 14:33] LABS: ALANINE AMINOTRANSFERASE 27 Units/L (12-78); ALBUMIN 3.1 g/dL (3.4-5.0); ALKALINE PHOSPHATASE 142 Units/L (46-116); AMYLASE 109 Units/L (25-115); ASPARTATE AMINO TRANSFERASE 32 Units/L (15-37); BLOOD UREA NITROGEN 5 mg/dL (7-18); CALCIUM 8.5 mg/dL (8.5-10.1); CARBON DIOXIDE 34.3 mmol/L (21-32); CHLORIDE 104 mmol/L (98-107); COR CA(FOR HYPOALB) 9.2 mg/dL (8.5-10.1); GLUCOSE 92 mg/dL (65-99); LIPASE 217 Units/L (73-393); SODIUM 141 mmol/L (136-145); TOTAL PROTEIN 6.7 g/dL (6.4-8.2); eGFR BLACK RACES > 60 (>60); eGFR NON BLACK RACES > 60 (>60)
--- NOTE | 2017-04-14 14:37 | CT ---
HISTORY: Seizure activity is Study: CT brain without contrast Comparison: None Technique: Multiple axial images of the brain were obtained from the skull base to the vertex without administr ation of IV contrast. Findings: No acute intraparenchymal hemorrhage or mass can be identified. No extra-axial fluid collections ar e seen. No alteration in the attenuation of the brain parenchyma can be identified to suggest acute or subacute ischemic change. The ventricular system is symmetric and nondilated. Rounded soft tiss ue density seen within the visualized maxillary sinuses bilaterally may reflect retention cysts and or mucosal polyps. If symptoms and or clinical concern persist recommend continued followup for furt her evaluation. IMPRESSION: 1. No acute intracranial process can be identified. 2. Maxillary sinus disease as noted above. Reported By:
--- NOTE | 2017-04-14 14:49 | CT ---
HISTORY: Abdominal pain Study: CT abdomen and pelvis without contrast Comparison: March 29 Technique: Multiple axial images of the abdomen and pelvis were obtained from the lung bases to the pubic symph ysis without the administration of IV contrast. Sagittal and coronal reformations were provided. Findings: The visualized portions of the lung bases are unremarkable. There is fatty infiltration of the live r without focal mass. The spleen and pancreas and kidneys and adrenal glands remain unremarkable.. T he gallbladder is absent. There are surgical clips around the stomach.. There is new free fluid in the pelvis between the urinary bladder and the rectum measuring over 7 centimeters transverse diamet er.. The previously demonstrated PEG tube has apparently been removed. The appendix is normal. No reina wel wall thickening or bowel dilatation is present. There is mild sigmoid diverticulosis.. The urin keyonna bladder is grossly unremarkable. The bony structures are grossly intact. IMPRESSION: 1. New fluid collection in the pelvis 2. Fatty infiltration of the liver and postsurgical changes about the stomach 3. Sigmoid diverticulosis Reported By:
[2017-04-14] MEDS ORDERED: PEPCID 20 MG IV PREMIX* 20 MG/50 ML BAG IV ONE ×2 (15:14→15:17)
[2017-04-14] MEDS ORDERED: LEVSIN/MAALOX/LIDOC VISC PO ONE (15:14)
[2017-04-14] MEDS ORDERED: K-DUR TAB 20 MEQ PO STA (15:16)
[2017-04-14] MEDS ORDERED: LEVSIN/MAALOX/LIDOC VISC ONE (15:18)
[2017-04-14] MEDS ORDERED: K-LYTE EFFERVESCENT ONE (15:39)
== END 2017-04-14 17:27 | disposition home or self-care (01) ==
LOC: ER 13:09
DX: E87.6 Hypokalemia (principal); R56.9 Unspecified convulsions; K76.0 Fatty (change of) liver, not elsewhere classified; K57.30 Diverticulosis of large intestine without perforation or abscess without bleeding
CPT/HCPCS: 36415; 70450; 74176; 80053; 82150; 83690; 85025; 86677; 96365; 96374; 99283; A4222; S0028

== ENCOUNTER 2017-09-14 16:03 | Inpatient (IN) | payer BC, MEDICAID ==
[2017-09-14] MEDS ORDERED: NS 1000 ML 1,000 ML ONE (17:11)
[2017-09-14] MEDS ORDERED: POTASSIUM CHL 60 MEQ/NS 0.45% 500 ML 60 MEQ/500 ML BAG IV ONE (17:41)
[2017-09-14 18:03] LABS: BASOPHILS % (AUTO) 0.3 % (0.2-1.0); EOSINOPHILS % (AUTO) 0.1 % (0.9-2.9); HEMATOCRIT 43.1 % (42.0-54.0); HEMOGLOBIN 14.6 g/dL (13.5-18.0); LYMPHOCYTES # (AUTO) 1.3 X10^3/uL (1.3-2.9); LYMPHOCYTES % (AUTO) 29.1 % (21.0-51.0); MEAN CORPUSCULAR HEMOGLOBIN 29.8 pg (27.0-34.0); MEAN CORPUSCULAR HGB CONC 33.9 g/dL (33.0-35.0); MEAN CORPUSCULAR VOLUME 88.1 fL (80.0-100.0); MEAN PLATELET VOLUME 9.9 fL (7.4-11.0); MONOCYTES # (AUTO) 0.6 x10^3/uL (0.3-0.8); MONOCYTES % (AUTO) 12.6 % (0.0-13.0); NEUTROPHILS # (AUTO) 2.6 x10^3/uL (2.2-4.8); NEUTROPHILS % (AUTO) 57.9 % (42.0-75.0); PLATELET COUNT 126 X10^3/uL (150.0-450.0); RED BLOOD COUNT 4.89 X10^6/uL (4.7-6.0); RED CELL DISTRIBUTION WIDTH 14.7 % (11.6-16.5); WHITE BLOOD COUNT 4.4 X10^3/uL (3.6-10.0)
[2017-09-14] MEDS: DILAUDID INJ IVP PRN ×2 (18:08→22:26)
[2017-09-14] MEDS: NS 1000 ML 1,000 ML IV SCH (18:09)
--- NOTE | 2017-09-14 18:09 | RAD ---
HISTORY: Cough, congestion, and fever. Study: Portable chest. Comparison: Chest x-ray dated January 26, 2017. Findings: The trachea is midline. The cardiac silhouette is unremarkable. Postsurgical changes status post me aileen sternotomy. No obvious focal consolidation, pleural effusion, or pneumothorax.. The bony thorax is unremarkable. IMPRESSION: No acute cardiopulmonary disease. Reported By:
[2017-09-14] MEDS ORDERED: MAGNESIUM SULFATE 1 GM/100 mL PREMIX 1 GM/100 ML BAG IV PRN (18:20)
[2017-09-14] MEDS ORDERED: POTASSIUM CHL 40 MEQ/NS 0.45% 500 ML IV PRN (18:20)
[2017-09-14] MEDS ORDERED: POTASSIUM CHLORIDE LIQ 20 MEQ UDC PO PRN (18:20)
[2017-09-14] MEDS ORDERED: K-RIDER 10 MEQ/NS 100 ML 10 MEQ/100 ML BAG IV PRN (18:20)
[2017-09-14] MEDS ORDERED: K-LYTE EFFERVESCENT PO PRN (18:20)
[2017-09-14] MEDS ORDERED: POTASSIUM CHL 60 MEQ/NS 0.45% 500 ML IV PRN (18:20)
[2017-09-14] MEDS ORDERED: MAG-OX TAB PO PRN (18:20)
[2017-09-14 18:37] LABS: ALANINE AMINOTRANSFERASE 82 Units/L (12-78); ALBUMIN 3.1 g/dL (3.4-5.0); ALKALINE PHOSPHATASE 139 Units/L (46-116); ASPARTATE AMINO TRANSFERASE 99 Units/L (15-37); BLOOD UREA NITROGEN 12 mg/dL (7-18); CALCIUM 8.6 mg/dL (8.5-10.1); CARBON DIOXIDE 29.9 mmol/L (21-32); CHLORIDE 103 mmol/L (98-107); CKMB % 3.2 % (<4); COR CA(FOR HYPOALB) 9.3 mg/dL (8.5-10.1); CREATINE KINASE 31 Units/L (39-308); CREATINE KINASE MB < 1.0 ng/mL (0-4.0); CREATININE 1.16 mg/dL (0.70-1.30); SODIUM 140 mmol/L (136-145); TOTAL PROTEIN 7.1 g/dL (6.4-8.2); TROPONIN I < 0.02 ng/mL (0-1.5); eGFR BLACK RACES > 60 (>60); eGFR NON BLACK RACES > 60 (>60)
[2017-09-14 19:03] LABS: AMYLASE 60 Units/L (25-115); LIPASE 337 Units/L (73-393)
[2017-09-14 19:34] VITALS: BMI 21.9
[2017-09-14] MEDS ORDERED: DOPAMINE IV PREMIX 400 MG/250 ML 400 MG/250 ML BAG IV PRN (19:37)
[2017-09-14] MEDS ORDERED: NS 100 ML IV 100 ML IV ONE (20:57)
[2017-09-14] MEDS ORDERED: NS 500 ML IV 500 ML IV SCH (21:00)
[2017-09-14] MEDS: MAXIPIME VIAL 1 GM IV SCH (21:06)
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
[2017-09-14] MEDS ORDERED: PHENERGAN TAB 25 MG PO PRN (23:02)
[2017-09-14 23:39] LABS: CKMB % 3.2 % (<4); CREATINE KINASE 31 Units/L (39-308); CREATINE KINASE MB < 1.0 ng/mL (0-4.0); TROPONIN I < 0.02 ng/mL (0-1.5)
[2017-09-15] MEDS: PHENERGAN INJ 25 MG IV PRN ×4 (00:56→17:00)
[2017-09-15] MEDS: DILAUDID INJ IVP PRN ×3 (02:27→10:48)
[2017-09-15] MEDS: NS 1000 ML 1,000 ML IV SCH ×3 (02:28→17:08)
[2017-09-15 06:00] LABS: BASOPHILS % (AUTO) 0.3 % (0.2-1.0); EOSINOPHILS % (AUTO) 0.2 % (0.9-2.9); HEMATOCRIT 43.1 % (42.0-54.0); HEMOGLOBIN 14.7 g/dL (13.5-18.0); LYMPHOCYTES # (AUTO) 1.6 X10^3/uL (1.3-2.9); LYMPHOCYTES % (AUTO) 38.9 % (21.0-51.0); MEAN CORPUSCULAR HEMOGLOBIN 29.7 pg (27.0-34.0); MEAN CORPUSCULAR HGB CONC 34.1 g/dL (33.0-35.0); MEAN CORPUSCULAR VOLUME 86.9 fL (80.0-100.0); MEAN PLATELET VOLUME 9.5 fL (7.4-11.0); MONOCYTES # (AUTO) 0.5 x10^3/uL (0.3-0.8); MONOCYTES % (AUTO) 11.2 % (0.0-13.0); NEUTROPHILS % (AUTO) 49.4 % (42.0-75.0); PLATELET COUNT 105 X10^3/uL (150.0-450.0); RED BLOOD COUNT 4.96 X10^6/uL (4.7-6.0); RED CELL DISTRIBUTION WIDTH 14.8 % (11.6-16.5)
[2017-09-15 06:08] LABS: ALANINE AMINOTRANSFERASE 72 Units/L (12-78); ALBUMIN 2.9 g/dL (3.4-5.0); ALKALINE PHOSPHATASE 132 Units/L (46-116); ASPARTATE AMINO TRANSFERASE 79 Units/L (15-37); BLOOD UREA NITROGEN 7 mg/dL (7-18); CALCIUM 8.1 mg/dL (8.5-10.1); CARBON DIOXIDE 28.1 mmol/L (21-32); CHLORIDE 107 mmol/L (98-107); CREATININE 0.78 mg/dL (0.70-1.30); SODIUM 143 mmol/L (136-145); TOTAL PROTEIN 6.8 g/dL (6.4-8.2); eGFR BLACK RACES > 60 (>60); eGFR NON BLACK RACES > 60 (>60)
[2017-09-15 06:11] LABS: CKMB % 2.9 % (<4); CREATINE KINASE 34 Units/L (39-308); CREATINE KINASE MB < 1.0 ng/mL (0-4.0); TROPONIN I < 0.02 ng/mL (0-1.5)
[2017-09-15] MEDS ORDERED: DRONABINOL 5 MG PO SCH (09:00)
[2017-09-15] MEDS ORDERED: MARINOL PO SCH (09:00)
[2017-09-15] MEDS ORDERED: PATIENT'S HOME MEDICATION (Omeprazole [Omeprazole] 40 MG) PO SCH (09:00)
[2017-09-15] MEDS ORDERED: EFFEXOR XR 75 MG CAP PO SCH (09:00)
[2017-09-15] MEDS ORDERED: PriLOSEC PO SCH (09:00)
[2017-09-15] MEDS ORDERED: NS 100 ML IV 100 ML IV ONE (09:09)
[2017-09-15] MEDS: MAXIPIME VIAL 1 GM IV SCH (09:26)
--- NOTE | 2017-09-15 10:58 | RAD ---
Examination: Portable AP chest History: Pain, low blood pressure Comparison reference 09/14/2017 Findings: Continued normal heart size with clear lungs and pleural spaces. Sternal wires are again no miguel. There is no evidence for CHF, pneumonia or pneumothorax. Impression: No acute chest abnormality demonstrated. Reported By:
[2017-09-15] MEDS ORDERED: DILAUDID INJ IVP PRN (13:32)
[2017-09-15 17:04] VITALS: BP 115/63
[2017-09-15] MEDS ORDERED: ZANAFLEX PO SCH (21:00)
== END 2017-09-15 18:00 | disposition short-term general hospital (02) | DRG 316 ==
LOC: UNDOADMOB 16:03 → ICU 16:03 → OBSVTOIN 16:31 → ICU 16:31
PROVIDERS: ADMIT Internal Medicine; ATTEND Internal Medicine
DX: I95.89 Other hypotension (principal); E86.0 Dehydration; R42 Dizziness and giddiness; R53.1 Weakness; R00.1 Bradycardia, unspecified; R10.11 Right upper quadrant pain; R11.2 Nausea with vomiting, unspecified; F32.89 Other specified depressive episodes; R19.7 Diarrhea, unspecified
CPT/HCPCS: 36415; 71010; 80053; 82150; 82550; 82553; 83690; 83735; 84484; 85025; 87040; 93005; 93010; A4216; A4222; J0692; J1265; J2550

== ENCOUNTER 2017-10-21 08:28 | Day surgery (SDC) | payer BC, MEDICAID ==
[2017-10-21 09:50] VITALS: BP 108/72
[2017-10-21] MEDS ORDERED: XYLOCAINE 1 % (PLAIN) ONE (10:12)
--- NOTE | 2017-10-21 10:58 | RAD ---
Examination: Portable AP chest History: PICC placement Findings: Right upper extremity PICC extends to the right atrium. No pneumothorax, pleural fluid, pul monary infiltrate or cardiac abnormality. Impression: PICC position as described. Reported By:
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
== END 2017-10-21 11:23 | disposition home or self-care (01) ==
LOC: SURG1 08:28
PROVIDERS: ATTEND Nurse Practitioner Family
PROC: 02H633Z Insertion of Infusion Device into Right Atrium, Percutaneous Approach (ICD-10-PCS; principal; 2017-10-21)
DX: R11.2 Nausea with vomiting, unspecified (principal); E46 Unspecified protein-calorie malnutrition; Z98.84 Bariatric surgery status
CPT/HCPCS: 71045; A4222; J2001

== ENCOUNTER 2018-01-25 15:00 | Inpatient (IN) | payer BC, MEDICAID ==
[2018-01-25 16:42] LABS: BASOPHILS % (AUTO) 0.4 % (0.2-1.0); EOSINOPHILS % (AUTO) 0.5 % (0.9-2.9); HEMATOCRIT 29.9 % (42.0-54.0); HEMOGLOBIN 10.1 g/dL (13.5-18.0); LYMPHOCYTES # (AUTO) 0.9 X10^3/uL (1.3-2.9); MEAN CORPUSCULAR HGB CONC 33.8 g/dL (33.0-35.0); MEAN CORPUSCULAR VOLUME 85.7 fL (80.0-100.0); MEAN PLATELET VOLUME 8.2 fL (7.4-11.0); MONOCYTES # (AUTO) 0.3 x10^3/uL (0.3-0.8); MONOCYTES % (AUTO) 5.9 % (0.0-13.0); NEUTROPHILS % (AUTO) 76.2 % (42.0-75.0); PLATELET COUNT 145 X10^3/uL (150.0-450.0); RED BLOOD COUNT 3.49 X10^6/uL (4.7-6.0); RED CELL DISTRIBUTION WIDTH 14.9 % (11.6-16.5); WHITE BLOOD COUNT 5.2 X10^3/uL (3.6-10.0)
[2018-01-25 16:50] LABS: ALANINE AMINOTRANSFERASE 16 Units/L (12-78); ALBUMIN 2.8 g/dL (3.4-5.0); ALKALINE PHOSPHATASE 75 Units/L (46-116); AMYLASE 39 Units/L (25-115); ASPARTATE AMINO TRANSFERASE 12 Units/L (15-37); BLOOD UREA NITROGEN 14 mg/dL (7-18); CALCIUM 7.9 mg/dL (8.5-10.1); CARBON DIOXIDE 31.5 mmol/L (21-32); CHLORIDE 101 mmol/L (98-107); COR CA(FOR HYPOALB) 8.9 mg/dL (8.5-10.1); CREATININE 0.83 mg/dL (0.70-1.30); LIPASE 72 Units/L (73-393); SODIUM 139 mmol/L (136-145); TOTAL PROTEIN 7.2 g/dL (6.4-8.2); eGFR BLACK RACES > 60 (>60); eGFR NON BLACK RACES > 60 (>60)
[2018-01-25] MEDS: NS 1000 ML 1,000 ML IV SCH (16:52)
[2018-01-25] MEDS: PEPCID 20 MG IV PREMIX* 20 MG/50 ML BAG IV PRN (19:32)
[2018-01-25] MEDS: DILAUDID INJ IVP PRN (19:34)
[2018-01-25] MEDS: PHENERGAN INJ 25 MG IVP PRN (19:35)
[2018-01-25 19:57] LABS: BILIRUBIN,URINE NEGATIVE (NEGATIVE); BLOOD/HEMOGLOBIN,URINE 1+ (NEGATIVE); GLUCOSE, URINE NEGATIVE (NEGATIVE); KETONES,URINE NEGATIVE (NEGATIVE); LEUKOCYTE ESTERASE ,URINE 3+ (NEGATIVE); NITRITES,URINE NEGATIVE (NEGATIVE); PROTEIN,URINE NEGATIVE (NEGATIVE); UROBILINOGEN,URINE NORMAL (NORMAL)
[2018-01-25 20:16] LABS: APPEARANCE,URINE CLEAR (CLEAR); BACTERIA,URINE 1+ /HPF (NEGATIVE); COLOR,URINE YELLOW (YELLOW); MUCUS,URINE RARE /HPF (NEGATIVE); SQUAMOUS EPITHELIAL CELL,UR RARE /HPF (NEGATIVE)
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
[2018-01-26] MEDS: LEVAQUIN PREMIX IV 500 MG 500 MG/100 ML BAG IV SCH ×2 (00:12→10:34)
[2018-01-26] MEDS: DILAUDID INJ IVP PRN ×6 (00:15→22:07)
[2018-01-26] MEDS: PHENERGAN INJ 25 MG IVP PRN ×3 (03:52→18:13)
[2018-01-26] MEDS: NS 1000 ML 1,000 ML IV SCH ×3 (04:38→23:41)
[2018-01-26 05:14] LABS: BLOOD UREA NITROGEN 9 mg/dL (7-18); CALCIUM 7.5 mg/dL (8.5-10.1); CHLORIDE 104 mmol/L (98-107); CREATININE 0.85 mg/dL (0.70-1.30); SODIUM 140 mmol/L (136-145); eGFR BLACK RACES > 60 (>60); eGFR NON BLACK RACES > 60 (>60)
[2018-01-26 05:31] LABS: BASOPHILS % (AUTO) 0.7 % (0.2-1.0); EOSINOPHILS % (AUTO) 0.6 % (0.9-2.9); HEMATOCRIT 24.3 % (42.0-54.0); HEMOGLOBIN 8.4 g/dL (13.5-18.0); LYMPHOCYTES # (AUTO) 0.8 X10^3/uL (1.3-2.9); LYMPHOCYTES % (AUTO) 18.8 % (21.0-51.0); MEAN CORPUSCULAR HEMOGLOBIN 29.6 pg (27.0-34.0); MEAN CORPUSCULAR HGB CONC 34.6 g/dL (33.0-35.0); MEAN CORPUSCULAR VOLUME 85.7 fL (80.0-100.0); MEAN PLATELET VOLUME 8.5 fL (7.4-11.0); MONOCYTES # (AUTO) 0.2 x10^3/uL (0.3-0.8); MONOCYTES % (AUTO) 5.2 % (0.0-13.0); NEUTROPHILS # (AUTO) 3.3 x10^3/uL (2.2-4.8); NEUTROPHILS % (AUTO) 74.7 % (42.0-75.0); PLATELET COUNT 98 X10^3/uL (150.0-450.0); RED BLOOD COUNT 2.83 X10^6/uL (4.7-6.0); RED CELL DISTRIBUTION WIDTH 14.8 % (11.6-16.5); WHITE BLOOD COUNT 4.4 X10^3/uL (3.6-10.0)
[2018-01-26] MEDS ORDERED: PHARMACY CONSULT - DOSE _____ XX SCH (10:00)
--- NOTE | 2018-01-26 11:29 | CT ---
HISTORY: Abdominal pain Study: CT abdomen pelvis with contrast Comparison: 04/14/2017 Technique: Axial post-contrast images with coronal and sagittal reformats. Dose reduction procedures were used with mA/kv adjusted for body size. Findings: The lung bases are clear with the exception of an 8.4 mm subpleural posterior left lower lobe pulmona ry nodule best visualized on series 4, image 5. This did not appear to be present on the prior examin ation. Primary lung neoplasm cannot be excluded. PET-CT is recommended for further evaluation. The li matt, spleen, adrenal glands, and pancreas are within normal limits. The patient is status post cholec ystectomy. The abdominal aorta is normal. No intraperitoneal or retroperitoneal lymphadenopathy of si gnificance is identified. Postsurgical changes are present in the area of the stomach. The appendix i s normal. There are no findings suggestive of diverticulitis or colitis. There are no findings sugges tive of small or large bowel obstruction. Examination of the pelvis demonstrated no evidence for pelv ic masses, pelvic fluid, or pelvic lymphadenopathy. No bladder abnormality is identified. Prostate ca lcifications are identified. IMPRESSION: Interval development since the prior examination of an 8.4 mm subpleural left lower lobe pulmonary no dule for which PET-CT is recommended in order to exclude a developing neoplasm. No acute intra-abdominal or intrapelvic abnormality. Reported By:
[2018-01-26 13:49] VITALS: BMI 23.3
[2018-01-26] MEDS ORDERED: TYLENOL 325 MG TAB PO PRN (17:11)
[2018-01-26] MEDS: ZOFRAN INJ 4 MG VIAL IVP PRN (17:30)
[2018-01-26] MEDS: PATIENT'S HOME MEDICATION IV SCH (18:44)
[2018-01-26] MEDS: COLACE CAP 100 MG PO SCH (21:52)
[2018-01-26] MEDS: MILK OF MAGNESIA PO SCH (21:52)
[2018-01-26] MEDS: PEPCID 20 MG IV PREMIX* 20 MG/50 ML BAG IV PRN (21:52)
[2018-01-27] MEDS: DILAUDID INJ IVP PRN ×5 (05:15→22:37)
[2018-01-27 06:35] LABS: BASOPHILS % (AUTO) 0.4 % (0.2-1.0); EOSINOPHILS % (AUTO) 0.7 % (0.9-2.9); LYMPHOCYTES # (AUTO) 0.6 X10^3/uL (1.3-2.9); LYMPHOCYTES % (AUTO) 15.6 % (21.0-51.0); MEAN CORPUSCULAR HEMOGLOBIN 29.6 pg (27.0-34.0); MEAN CORPUSCULAR HGB CONC 34.5 g/dL (33.0-35.0); MEAN PLATELET VOLUME 8.8 fL (7.4-11.0); MONOCYTES # (AUTO) 0.2 x10^3/uL (0.3-0.8); MONOCYTES % (AUTO) 5.4 % (0.0-13.0); NEUTROPHILS # (AUTO) 3.1 x10^3/uL (2.2-4.8); NEUTROPHILS % (AUTO) 77.9 % (42.0-75.0); PLATELET COUNT 97 X10^3/uL (150.0-450.0); RED BLOOD COUNT 3.02 X10^6/uL (4.7-6.0); RED CELL DISTRIBUTION WIDTH 14.7 % (11.6-16.5)
[2018-01-27 06:42] LABS: ALANINE AMINOTRANSFERASE 13 Units/L (12-78); ALBUMIN 2.3 g/dL (3.4-5.0); ALKALINE PHOSPHATASE 64 Units/L (46-116); ASPARTATE AMINO TRANSFERASE 12 Units/L (15-37); BLOOD UREA NITROGEN 12 mg/dL (7-18); CALCIUM 8.2 mg/dL (8.5-10.1); CHLORIDE 104 mmol/L (98-107); COR CA(FOR HYPOALB) 9.6 mg/dL (8.5-10.1); COR NA(FOR HYPERGLY) 140 mmol/L (136-145); CREATININE 0.78 mg/dL (0.70-1.30); SODIUM 139 mmol/L (136-145); TOTAL PROTEIN 6.2 g/dL (6.4-8.2); eGFR BLACK RACES > 60 (>60); eGFR NON BLACK RACES > 60 (>60)
[2018-01-27] MEDS: MILK OF MAGNESIA PO SCH ×3 (09:41→20:44)
[2018-01-27] MEDS: LEVAQUIN PREMIX IV 500 MG 500 MG/100 ML BAG IV SCH (09:41)
[2018-01-27] MEDS: PHENERGAN INJ 25 MG IVP PRN ×2 (09:51→17:31)
--- NOTE | 2018-01-27 16:39 | RAD ---
Indication: Pain Exam: KUB Comparison: None. Findings: The gas pattern is unremarkable. There is a surgical clip along the right upper quadrant an d left pelvis. No free air is seen. No urinary calculi are identified. The bones are intact. Impression: Surgical clips along the left pelvis and right upper quadrant with a nonspecific gas chayito raquel. Reported By:
[2018-01-27] MEDS: NS 1000 ML 1,000 ML IV SCH ×2 (17:54→20:43)
[2018-01-27] MEDS: PATIENT'S HOME MEDICATION IV SCH (18:49)
[2018-01-27] MEDS: PEPCID 20 MG IV PREMIX* 20 MG/50 ML BAG IV PRN (20:30)
[2018-01-27] MEDS: ZOFRAN INJ 4 MG VIAL IVP PRN (20:30)
[2018-01-27] MEDS: COLACE CAP 100 MG PO SCH (20:44)
[2018-01-28] MEDS: PHENERGAN INJ 25 MG IVP PRN ×4 (04:42→23:01)
[2018-01-28] MEDS: DILAUDID INJ IVP PRN ×4 (04:42→23:01)
[2018-01-28 05:22] LABS: BASOPHILS % (AUTO) 0.4 % (0.2-1.0); EOSINOPHILS # (AUTO) 0.1 x10^3/uL (0.0-0.2); EOSINOPHILS % (AUTO) 1.6 % (0.9-2.9); HEMATOCRIT 25.6 % (42.0-54.0); HEMOGLOBIN 8.8 g/dL (13.5-18.0); LYMPHOCYTES # (AUTO) 1.1 X10^3/uL (1.3-2.9); LYMPHOCYTES % (AUTO) 27.1 % (21.0-51.0); MEAN CORPUSCULAR HEMOGLOBIN 29.6 pg (27.0-34.0); MEAN CORPUSCULAR HGB CONC 34.3 g/dL (33.0-35.0); MEAN CORPUSCULAR VOLUME 86.5 fL (80.0-100.0); MEAN PLATELET VOLUME 8.5 fL (7.4-11.0); MONOCYTES # (AUTO) 0.3 x10^3/uL (0.3-0.8); MONOCYTES % (AUTO) 8.1 % (0.0-13.0); NEUTROPHILS # (AUTO) 2.6 x10^3/uL (2.2-4.8); NEUTROPHILS % (AUTO) 62.8 % (42.0-75.0); PLATELET COUNT 121 X10^3/uL (150.0-450.0); RED BLOOD COUNT 2.96 X10^6/uL (4.7-6.0); RED CELL DISTRIBUTION WIDTH 14.5 % (11.6-16.5); WHITE BLOOD COUNT 4.2 X10^3/uL (3.6-10.0)
[2018-01-28 05:39] LABS: ALANINE AMINOTRANSFERASE 12 Units/L (12-78); ALBUMIN 2.2 g/dL (3.4-5.0); ALKALINE PHOSPHATASE 60 Units/L (46-116); ASPARTATE AMINO TRANSFERASE 12 Units/L (15-37); BLOOD UREA NITROGEN 13 mg/dL (7-18); CALCIUM 8.1 mg/dL (8.5-10.1); CARBON DIOXIDE 28.3 mmol/L (21-32); CHLORIDE 105 mmol/L (98-107); COR CA(FOR HYPOALB) 9.5 mg/dL (8.5-10.1); COR NA(FOR HYPERGLY) 140 mmol/L (136-145); CREATININE 0.82 mg/dL (0.70-1.30); SODIUM 139 mmol/L (136-145); TOTAL PROTEIN 5.9 g/dL (6.4-8.2); eGFR BLACK RACES > 60 (>60); eGFR NON BLACK RACES > 60 (>60)
[2018-01-28] MEDS: LEVAQUIN PREMIX IV 500 MG 500 MG/100 ML BAG IV SCH (10:01)
[2018-01-28] MEDS: MILK OF MAGNESIA PO SCH ×2 (10:03→21:00)
[2018-01-28] MEDS: NS 1000 ML 1,000 ML IV SCH ×2 (10:52→17:14)
[2018-01-28] MEDS: PATIENT'S HOME MEDICATION IV SCH (18:38)
[2018-01-28] MEDS: ZOFRAN INJ 4 MG VIAL IVP PRN (19:03)
[2018-01-28] MEDS: COLACE CAP 100 MG PO SCH (21:00)
[2018-01-29] MEDS: NS 1000 ML 1,000 ML IV SCH ×2 (04:53→11:19)
[2018-01-29] MEDS: DILAUDID INJ IVP PRN (04:53)
[2018-01-29 05:15] LABS: BASOPHILS % (AUTO) 0.8 % (0.2-1.0); EOSINOPHILS # (AUTO) 0.1 x10^3/uL (0.0-0.2); EOSINOPHILS % (AUTO) 1.7 % (0.9-2.9); HEMATOCRIT 23.8 % (42.0-54.0); HEMOGLOBIN 8.3 g/dL (13.5-18.0); LYMPHOCYTES # (AUTO) 1.2 X10^3/uL (1.3-2.9); LYMPHOCYTES % (AUTO) 34.3 % (21.0-51.0); MEAN CORPUSCULAR HEMOGLOBIN 29.7 pg (27.0-34.0); MEAN CORPUSCULAR HGB CONC 34.6 g/dL (33.0-35.0); MEAN CORPUSCULAR VOLUME 85.9 fL (80.0-100.0); MEAN PLATELET VOLUME 8.4 fL (7.4-11.0); MONOCYTES # (AUTO) 0.2 x10^3/uL (0.3-0.8); MONOCYTES % (AUTO) 7.2 % (0.0-13.0); NEUTROPHILS # (AUTO) 1.9 x10^3/uL (2.2-4.8); PLATELET COUNT 114 X10^3/uL (150.0-450.0); RED BLOOD COUNT 2.78 X10^6/uL (4.7-6.0); WHITE BLOOD COUNT 3.4 X10^3/uL (3.6-10.0)
[2018-01-29 05:32] LABS: ALANINE AMINOTRANSFERASE 13 Units/L (12-78); ALBUMIN 2.2 g/dL (3.4-5.0); ALKALINE PHOSPHATASE 62 Units/L (46-116); ASPARTATE AMINO TRANSFERASE 11 Units/L (15-37); BLOOD UREA NITROGEN 15 mg/dL (7-18); CALCIUM 7.8 mg/dL (8.5-10.1); CARBON DIOXIDE 29.5 mmol/L (21-32); CHLORIDE 106 mmol/L (98-107); COR CA(FOR HYPOALB) 9.2 mg/dL (8.5-10.1); COR NA(FOR HYPERGLY) 141 mmol/L (136-145); CREATININE 0.69 mg/dL (0.70-1.30); SODIUM 140 mmol/L (136-145); TOTAL PROTEIN 6.1 g/dL (6.4-8.2); eGFR BLACK RACES > 60 (>60); eGFR NON BLACK RACES > 60 (>60)
[2018-01-29 05:50] LABS: BAND NEUTROPHILS % 2 % (0-10); PLATELET MORPHOLOGY COMMENT NORMAL (NORMAL)
[2018-01-29] MEDS ORDERED: DILAUDID INJ IVP PRN (09:50)
[2018-01-29] MEDS: PHENERGAN INJ 25 MG IVP PRN (09:55)
[2018-01-29] MEDS: MILK OF MAGNESIA PO SCH (10:06)
[2018-01-29 10:30] VITALS: BP 104/62
== END 2018-01-29 13:45 | disposition home or self-care (01) | DRG 690 ==
LOC: MED/SURG 15:00 → OBSVTOIN 01-26 09:00
PROVIDERS: ADMIT Internal Medicine; ATTEND Internal Medicine
DX: N39.0 Urinary tract infection, site not specified (principal); R10.33 Periumbilical pain; R11.2 Nausea with vomiting, unspecified; R10.84 Generalized abdominal pain; F32.89 Other specified depressive episodes; E86.0 Dehydration; K21.9 Gastro-esophageal reflux disease without esophagitis; E46 Unspecified protein-calorie malnutrition; Z98.84 Bariatric surgery status; R73.09 Other abnormal glucose
CPT/HCPCS: 36415; 74018; 74177; 80048; 80053; 81001; 82150; 82607; 82728; 82746; 83540; 83605; 83690; 84466; 85025; 87040; 87086; 99231; 99238; A4216; A4222; S0028; G0378; J1170; J1956; J2405; J2550

== ENCOUNTER 2018-02-08 12:09 | Observation (INO) | payer BC, OTHER ==
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
[2018-02-08 13:33] LABS: BASOPHILS # (AUTO) 0.1 X10^3/uL (0.0-0.1); EOSINOPHILS % (AUTO) 0.1 % (0.9-2.9); HEMATOCRIT 27.1 % (42.0-54.0); HEMOGLOBIN 9.4 g/dL (13.5-18.0); LYMPHOCYTES # (AUTO) 0.9 X10^3/uL (1.3-2.9); LYMPHOCYTES % (AUTO) 13.7 % (21.0-51.0); MEAN CORPUSCULAR HEMOGLOBIN 29.5 pg (27.0-34.0); MEAN CORPUSCULAR HGB CONC 34.8 g/dL (33.0-35.0); MEAN CORPUSCULAR VOLUME 84.7 fL (80.0-100.0); MEAN PLATELET VOLUME 8.1 fL (7.4-11.0); MONOCYTES # (AUTO) 0.3 x10^3/uL (0.3-0.8); MONOCYTES % (AUTO) 3.7 % (0.0-13.0); NEUTROPHILS # (AUTO) 5.6 x10^3/uL (2.2-4.8); NEUTROPHILS % (AUTO) 81.5 % (42.0-75.0); PLATELET COUNT 118 X10^3/uL (150.0-450.0); RED CELL DISTRIBUTION WIDTH 14.9 % (11.6-16.5); WHITE BLOOD COUNT 6.8 X10^3/uL (3.6-10.0)
[2018-02-08 13:53] LABS: ALANINE AMINOTRANSFERASE 19 Units/L (12-78); ALBUMIN 2.9 g/dL (3.4-5.0); ALKALINE PHOSPHATASE 74 Units/L (46-116); AMYLASE 74 Units/L (25-115); ASPARTATE AMINO TRANSFERASE 12 Units/L (15-37); BLOOD UREA NITROGEN 18 mg/dL (7-18); CALCIUM 7.6 mg/dL (8.5-10.1); CARBON DIOXIDE 29.7 mmol/L (21-32); CHLORIDE 103 mmol/L (98-107); COR CA(FOR HYPOALB) 8.5 mg/dL (8.5-10.1); CREATININE 0.91 mg/dL (0.70-1.30); LIPASE 135 Units/L (73-393); MAGNESIUM 1.8 mg/dL (1.7-2.9); SODIUM 137 mmol/L (136-145); TOTAL PROTEIN 6.4 g/dL (6.4-8.2); eGFR BLACK RACES > 60 (>60); eGFR NON BLACK RACES > 60 (>60)
[2018-02-08 13:58] LABS: CREATINE KINASE 20 Units/L (39-308); CREATINE KINASE MB < 1.0 ng/mL (0-4.0); TROPONIN I < 0.02 ng/mL (0-1.5)
[2018-02-08] MEDS: NS 1000 ML 1,000 ML IV SCH (13:58)
[2018-02-08] MEDS: ZOFRAN INJ 4 MG VIAL IVP PRN ×2 (13:58→21:44)
--- NOTE | 2018-02-08 15:32 | RAD ---
STUDY: CHEST, ONE VIEW History: Acute shortness of breath. Comparison: October 21, 2017. Findings: The trachea is midline. There is some prominence of the central bronchopulmonary markings in both kayley gs. The lungs are clear of consolidation, significant infiltrate, effusion, or pneumothorax. The card iac silhouette, mediastinum and osseous structures are unremarkable. A right-sided PICC line cathete r is in place. IMPRESSION: 1. Bronchitis versus reactive airway disease. Reported By:
[2018-02-08] MEDS: DILAUDID INJ IVP PRN ×2 (17:32→21:43)
[2018-02-08 19:50] LABS: CREATINE KINASE 20 Units/L (39-308); CREATINE KINASE MB < 1.0 ng/mL (0-4.0); TROPONIN I < 0.02 ng/mL (0-1.5)
[2018-02-08 22:21] LABS: BILIRUBIN,URINE NEGATIVE (NEGATIVE); BLOOD/HEMOGLOBIN,URINE NEGATIVE (NEGATIVE); GLUCOSE, URINE NEGATIVE (NEGATIVE); KETONES,URINE NEGATIVE (NEGATIVE); LEUKOCYTE ESTERASE ,URINE NEGATIVE (NEGATIVE); NITRITES,URINE NEGATIVE (NEGATIVE); PROTEIN,URINE NEGATIVE (NEGATIVE); UROBILINOGEN,URINE NORMAL (NORMAL)
[2018-02-08 22:48] LABS: APPEARANCE,URINE CLEAR (CLEAR); COLOR,URINE YELLOW (YELLOW)
[2018-02-09 01:49] LABS: CKMB % 5.6 % (<4); CREATINE KINASE 18 Units/L (39-308); CREATINE KINASE MB < 1.0 ng/mL (0-4.0); TROPONIN I < 0.02 ng/mL (0-1.5)
[2018-02-09] MEDS: NS 1000 ML 1,000 ML IV SCH ×3 (02:19→14:05)
[2018-02-09] MEDS: DILAUDID INJ IVP PRN (02:20)
[2018-02-09] MEDS: ZOFRAN INJ 4 MG VIAL IVP PRN (05:41)
[2018-02-09 06:16] LABS: BASOPHILS % (AUTO) 0.6 % (0.2-1.0); EOSINOPHILS # (AUTO) 0.1 x10^3/uL (0.0-0.2); EOSINOPHILS % (AUTO) 1.5 % (0.9-2.9); HEMOGLOBIN 9.8 g/dL (13.5-18.0); LYMPHOCYTES # (AUTO) 0.7 X10^3/uL (1.3-2.9); LYMPHOCYTES % (AUTO) 17.5 % (21.0-51.0); MEAN CORPUSCULAR HEMOGLOBIN 29.1 pg (27.0-34.0); MEAN CORPUSCULAR HGB CONC 33.6 g/dL (33.0-35.0); MEAN CORPUSCULAR VOLUME 86.6 fL (80.0-100.0); MEAN PLATELET VOLUME 8.1 fL (7.4-11.0); MONOCYTES # (AUTO) 0.3 x10^3/uL (0.3-0.8); NEUTROPHILS % (AUTO) 73.4 % (42.0-75.0); PLATELET COUNT 132 X10^3/uL (150.0-450.0); RED BLOOD COUNT 3.35 X10^6/uL (4.7-6.0); RED CELL DISTRIBUTION WIDTH 15.1 % (11.6-16.5); WHITE BLOOD COUNT 4.1 X10^3/uL (3.6-10.0)
[2018-02-09 06:36] LABS: ALANINE AMINOTRANSFERASE 14 Units/L (12-78); ALBUMIN 2.7 g/dL (3.4-5.0); ALKALINE PHOSPHATASE 73 Units/L (46-116); ASPARTATE AMINO TRANSFERASE 14 Units/L (15-37); BLOOD UREA NITROGEN 11 mg/dL (7-18); CALCIUM 7.7 mg/dL (8.5-10.1); CARBON DIOXIDE 29.2 mmol/L (21-32); CHLORIDE 104 mmol/L (98-107); CHOL/HDL RATIO 3.5 (0.0-5.0); CHOLESTEROL 85 mg/dL (0-200); COR CA(FOR HYPOALB) 8.7 mg/dL (8.5-10.1); CREATININE 0.84 mg/dL (0.70-1.30); HDL CHOLESTEROL 24 mg/dL (40-60); SODIUM 138 mmol/L (136-145); TOTAL PROTEIN 6.7 g/dL (6.4-8.2); TRIGLYCERIDES 95 mg/dL (0-150); eGFR BLACK RACES > 60 (>60); eGFR NON BLACK RACES > 60 (>60)
[2018-02-09] MEDS ORDERED: NORCO 7.5/325 MG TAB PO PRN (06:37)
[2018-02-09] MEDS ORDERED: PHENERGAN TAB 25 MG PO PRN (06:37)
[2018-02-09] MEDS: EFFEXOR TAB 75 MG (BID DOSING) PO SCH (08:59)
[2018-02-09] MEDS ORDERED: SEROquel TAB 100 MG PO SCH (09:00)
[2018-02-09] MEDS ORDERED: NS 1000 ML 1,000 ML IV ONE (09:20)
[2018-02-09] MEDS ORDERED: TYLENOL #3 TAB (W/CODEINE) PO PRN (10:30)
[2018-02-09] MEDS: CARAFATE PO SCH ×2 (14:05→21:42)
[2018-02-09 14:31] VITALS: BMI 23.5
[2018-02-10] MEDS: NS 1000 ML 1,000 ML IV SCH (03:05)
[2018-02-10 05:56] LABS: BASOPHILS % (AUTO) 0.7 % (0.2-1.0); EOSINOPHILS # (AUTO) 0.1 x10^3/uL (0.0-0.2); EOSINOPHILS % (AUTO) 2.1 % (0.9-2.9); HEMOGLOBIN 9.4 g/dL (13.5-18.0); LYMPHOCYTES # (AUTO) 1.3 X10^3/uL (1.3-2.9); LYMPHOCYTES % (AUTO) 34.1 % (21.0-51.0); MEAN CORPUSCULAR HEMOGLOBIN 29.1 pg (27.0-34.0); MEAN CORPUSCULAR HGB CONC 33.7 g/dL (33.0-35.0); MEAN CORPUSCULAR VOLUME 86.5 fL (80.0-100.0); MEAN PLATELET VOLUME 8.6 fL (7.4-11.0); MONOCYTES # (AUTO) 0.5 x10^3/uL (0.3-0.8); MONOCYTES % (AUTO) 12.7 % (0.0-13.0); NEUTROPHILS % (AUTO) 50.4 % (42.0-75.0); PLATELET COUNT 113 X10^3/uL (150.0-450.0); RED BLOOD COUNT 3.24 X10^6/uL (4.7-6.0); RED CELL DISTRIBUTION WIDTH 15.1 % (11.6-16.5); WHITE BLOOD COUNT 3.9 X10^3/uL (3.6-10.0)
[2018-02-10 06:08] LABS: ALANINE AMINOTRANSFERASE 15 Units/L (12-78); ALBUMIN 2.5 g/dL (3.4-5.0); ALKALINE PHOSPHATASE 75 Units/L (46-116); ASPARTATE AMINO TRANSFERASE 15 Units/L (15-37); BLOOD UREA NITROGEN 9 mg/dL (7-18); CARBON DIOXIDE 27.3 mmol/L (21-32); CHLORIDE 108 mmol/L (98-107); COR CA(FOR HYPOALB) 9.2 mg/dL (8.5-10.1); SODIUM 142 mmol/L (136-145); TOTAL PROTEIN 6.6 g/dL (6.4-8.2); eGFR BLACK RACES > 60 (>60); eGFR NON BLACK RACES > 60 (>60)
[2018-02-10] MEDS: CARAFATE PO SCH ×2 (06:25→14:00)
[2018-02-10] MEDS: EFFEXOR TAB 75 MG (BID DOSING) PO SCH (09:06)
[2018-02-10 15:27] VITALS: BP 120/79
[2018-02-10] MEDS ORDERED: SEROquel TAB 100 MG PO SCH (21:00)
== END 2018-02-10 15:50 | disposition home or self-care (01) | DRG 392 ==
LOC: MED/SURG 12:09
PROVIDERS: ADMIT Internal Medicine; ATTEND Internal Medicine
DX: R10.33 Periumbilical pain (principal); R00.0 Tachycardia, unspecified; D64.89 Other specified anemias; R53.1 Weakness; R11.2 Nausea with vomiting, unspecified; R06.02 Shortness of breath; Z93.1 Gastrostomy status; Z79.899 Other long term (current) drug therapy
CPT/HCPCS: 36415; 71045; 80053; 80061; 81003; 82150; 82550; 82553; 83690; 83735; 84484; 85025; 93005; 93010; 94760; A4216; A4222; G0378; J1170; J2405

== ENCOUNTER 2018-03-07 10:01 | Observation (INO) ==
[2018-03-07] MEDS ORDERED: ZOFRAN INJ 4 MG VIAL IVP PRN (13:24)
[2018-03-07] MEDS: PHENERGAN INJ 25 MG IV PRN (13:40)
[2018-03-07] MEDS: NS 1000 ML 1,000 ML IV SCH ×2 (13:40→21:41)
[2018-03-07 13:53] LABS: BASOPHILS % (AUTO) 0.9 % (0.2-1.0); EOSINOPHILS # (AUTO) 0.1 x10^3/uL (0.0-0.2); EOSINOPHILS % (AUTO) 2.9 % (0.9-2.9); HEMATOCRIT 34.5 % (42.0-54.0); HEMOGLOBIN 11.6 g/dL (13.5-18.0); LYMPHOCYTES # (AUTO) 1.4 X10^3/uL (1.3-2.9); MEAN CORPUSCULAR HEMOGLOBIN 28.8 pg (27.0-34.0); MEAN CORPUSCULAR HGB CONC 33.5 g/dL (33.0-35.0); MEAN PLATELET VOLUME 7.8 fL (7.4-11.0); MONOCYTES # (AUTO) 0.3 x10^3/uL (0.3-0.8); MONOCYTES % (AUTO) 5.7 % (0.0-13.0); NEUTROPHILS # (AUTO) 2.7 x10^3/uL (2.2-4.8); NEUTROPHILS % (AUTO) 59.5 % (42.0-75.0); PLATELET COUNT 212 X10^3/uL (150.0-450.0); RED BLOOD COUNT 4.01 X10^6/uL (4.7-6.0); RED CELL DISTRIBUTION WIDTH 15.7 % (11.6-16.5); WHITE BLOOD COUNT 4.6 X10^3/uL (3.6-10.0)
--- NOTE | 2018-03-07 14:03 | RAD ---
Exam: Portable chest History: 42-year-old male with sepsis. Comparison: Previous chest radiograph from 02/08/2018. Findings: Heart size and pulmonary vasculature are normal. Lungs are clear with no infiltrate or significant ef fusion on either side. A right-sided PICC line is identified with the tip of the catheter in the supe rior vena cava Impression: No acute cardiopulmonary abnormality is seen on this exam Reported By:
[2018-03-07 14:15] LABS: LACTIC ACID 0.5 mmol/L (0.4-2.0)
[2018-03-07 14:16] LABS: BLOOD UREA NITROGEN 10 mg/dL (7-18); CALCIUM 8.7 mg/dL (8.5-10.1); CARBON DIOXIDE 31.8 mmol/L (21-32); CHLORIDE 104 mmol/L (98-107); CREATININE 0.94 mg/dL (0.70-1.30); SODIUM 141 mmol/L (136-145); TROPONIN I < 0.02 ng/mL (0-1.5); eGFR NON BLACK RACES > 60 (>60)
[2018-03-07 14:20] LABS: ALANINE AMINOTRANSFERASE 29 Units/L (12-78); ALBUMIN 3.2 g/dL (3.4-5.0); ALKALINE PHOSPHATASE 86 Units/L (46-116); AMYLASE 75 Units/L (25-115); ASPARTATE AMINO TRANSFERASE 19 Units/L (15-37); COR CA(FOR HYPOALB) 9.3 mg/dL (8.5-10.1); CREATINE KINASE 25 Units/L (39-308); CREATINE KINASE MB < 1.0 ng/mL (0-4.0); LIPASE 69 Units/L (73-393); MAGNESIUM 1.8 mg/dL (1.7-2.9); PHOSPHORUS 5.6 mg/dL (2.6-4.7); TOTAL PROTEIN 7.1 g/dL (6.4-8.2)
[2018-03-07] MEDS ORDERED: XYLOCAINE 1 % (PLAIN) ONE (15:22)
[2018-03-07] MEDS ORDERED: PHARMACY CONSULT - VANCOMYCIN XX SCH (16:00)
--- NOTE | 2018-03-07 16:16 | DR.UPDATE ---
H&P Update History and Physical Update: History and Physical reviewed and patient examined. Changes noted: NO Yes with the following:Agree with H&P from Dr Rice. will place PICC line. Procedures (ALL) - Central Line Placement PCM.CLCO: written consent Time out performed: Yes Patient placed pm monitor/pulse ox: Yes prep: mask, gown, gloves, other Centrial line prep: chlorhexidine scrub Local anesthsia used: lidocane 1% Ultrasound used for placement: Yes (left basilic identified with ultrasound. ) Central line lumen ininserted: double (5Fr power port. trimmed to 45cm with 3cm exposed as this is the length that would allow aspiration from purple.) Post procedure: sutured in place, good blood return (x1), all ports aspirated, flushed,capped, sterile dressing applied Post procedure xray: tip oc catheter in good position, no pneumothorax seen Patient tolerated procedure: Yes Complications: none
--- NOTE | 2018-03-07 16:34 | RAD ---
HISTORY: PICC line placement. Study: Portable chest. Comparison: Chest x-ray dated same day at 1:48 p.m. Findings: Interval removal of a right PICC line and placement of a left PICC line whose tip overlies the expect ed area of the superior vena cava. The cardiac silhouette is unremarkable. No obvious focal consolid ation, pleural effusion, or pneumothorax. The bony thorax is unremarkable. IMPRESSION: 1. Left PICC line that appears to be in good position. 2. No acute cardiopulmonary disease. Reported By:
[2018-03-07] MEDS: VANCOMYCIN HCL 1 GM VIAL 1 G in D5W 250 ML IV 250 ML IV SCH (16:39)
[2018-03-07] MEDS: NORCO 7.5/325 MG TAB PO PRN (16:40)
--- NOTE | 2018-03-07 18:43 | RAD ---
AP chest. Indication: PICC line positioning Comparison: 03/07/2018 at 4:00 p.m. Findings: The left-sided PICC line is coiled within the upper SVC. Lungs are clear and heart size is normal. Previous median sternotomy is noted. No pleural effusion or pneumothorax. Impression: The tip of the PICC line is coiled within the SVC, repositioning is recommended prior to use. No acute airspace disease or CHF. Reported By:
[2018-03-07] MEDS: ATIVAN TAB 1 MG PO SCH (21:15)
[2018-03-07 21:26] LABS: BILIRUBIN,URINE NEGATIVE (NEGATIVE); BLOOD/HEMOGLOBIN,URINE NEGATIVE (NEGATIVE); GLUCOSE, URINE NEGATIVE (NEGATIVE); KETONES,URINE NEGATIVE (NEGATIVE); LEUKOCYTE ESTERASE ,URINE NEGATIVE (NEGATIVE); NITRITES,URINE NEGATIVE (NEGATIVE); PROTEIN,URINE NEGATIVE (NEGATIVE); UROBILINOGEN,URINE NORMAL (NORMAL)
[2018-03-07 21:27] LABS: APPEARANCE,URINE CLEAR (CLEAR); COLOR,URINE STRAW (YELLOW)
[2018-03-08] MEDS: NS 1000 ML 1,000 ML IV SCH ×5 (02:02→17:54)
[2018-03-08] MEDS: VANCOMYCIN HCL 1 GM VIAL 1 G in D5W 250 ML IV 250 ML IV SCH ×3 (05:40→22:24)
[2018-03-08 06:24] LABS: BASOPHILS % (AUTO) 0.9 % (0.2-1.0); EOSINOPHILS # (AUTO) 0.1 x10^3/uL (0.0-0.2); EOSINOPHILS % (AUTO) 3.6 % (0.9-2.9); HEMATOCRIT 33.8 % (42.0-54.0); HEMOGLOBIN 11.2 g/dL (13.5-18.0); LYMPHOCYTES # (AUTO) 1.6 X10^3/uL (1.3-2.9); LYMPHOCYTES % (AUTO) 52.3 % (21.0-51.0); MEAN CORPUSCULAR HEMOGLOBIN 29.1 pg (27.0-34.0); MEAN CORPUSCULAR HGB CONC 33.2 g/dL (33.0-35.0); MEAN CORPUSCULAR VOLUME 87.5 fL (80.0-100.0); MEAN PLATELET VOLUME 8.3 fL (7.4-11.0); MONOCYTES # (AUTO) 0.2 x10^3/uL (0.3-0.8); MONOCYTES % (AUTO) 5.7 % (0.0-13.0); NEUTROPHILS # (AUTO) 1.2 x10^3/uL (2.2-4.8); NEUTROPHILS % (AUTO) 37.5 % (42.0-75.0); PLATELET COUNT 179 X10^3/uL (150.0-450.0); RED BLOOD COUNT 3.86 X10^6/uL (4.7-6.0); RED CELL DISTRIBUTION WIDTH 16.2 % (11.6-16.5); WHITE BLOOD COUNT 3.1 X10^3/uL (3.6-10.0)
[2018-03-08 06:28] LABS: ALANINE AMINOTRANSFERASE 30 Units/L (12-78); ALBUMIN 3.1 g/dL (3.4-5.0); ALKALINE PHOSPHATASE 84 Units/L (46-116); ASPARTATE AMINO TRANSFERASE 21 Units/L (15-37); BLOOD UREA NITROGEN 7 mg/dL (7-18); CALCIUM 8.9 mg/dL (8.5-10.1); CARBON DIOXIDE 29.8 mmol/L (21-32); CHLORIDE 108 mmol/L (98-107); COR CA(FOR HYPOALB) 9.6 mg/dL (8.5-10.1); CREATININE 0.94 mg/dL (0.70-1.30); SODIUM 144 mmol/L (136-145); TOTAL PROTEIN 6.8 g/dL (6.4-8.2); eGFR NON BLACK RACES > 60 (>60)
[2018-03-08] MEDS: EFFEXOR TAB 37.5 MG (BID DOSING) PO SCH (08:51)
[2018-03-08] MEDS: PHENERGAN INJ 25 MG IV PRN ×2 (09:48→17:32)
[2018-03-08] MEDS: NORCO 7.5/325 MG TAB PO PRN (17:32)
[2018-03-08] MEDS: ATIVAN TAB 1 MG PO SCH (21:08)
[2018-03-08] MEDS ORDERED: PHARMACY COMMENT IV NR (21:30)
[2018-03-08 22:06] LABS: CREATININE 0.97 mg/dL (0.70-1.30); VANCOMYCIN,TROUGH 18.1 ug/mL (15-20)
[2018-03-09] MEDS: NS 1000 ML 1,000 ML IV SCH ×3 (01:36→14:01)
[2018-03-09] MEDS: VANCOMYCIN HCL 1 GM VIAL 1 G in D5W 250 ML IV 250 ML IV SCH ×3 (05:47→21:24)
[2018-03-09 06:18] LABS: BASOPHILS % (AUTO) 0.9 % (0.2-1.0); EOSINOPHILS # (AUTO) 0.1 x10^3/uL (0.0-0.2); EOSINOPHILS % (AUTO) 2.8 % (0.9-2.9); HEMATOCRIT 26.7 % (42.0-54.0); HEMOGLOBIN 9.2 g/dL (13.5-18.0); LYMPHOCYTES # (AUTO) 1.4 X10^3/uL (1.3-2.9); MEAN CORPUSCULAR HEMOGLOBIN 29.5 pg (27.0-34.0); MEAN CORPUSCULAR HGB CONC 34.4 g/dL (33.0-35.0); MEAN CORPUSCULAR VOLUME 85.5 fL (80.0-100.0); MEAN PLATELET VOLUME 8.1 fL (7.4-11.0); MONOCYTES # (AUTO) 0.2 x10^3/uL (0.3-0.8); MONOCYTES % (AUTO) 7.2 % (0.0-13.0); NEUTROPHILS % (AUTO) 37.1 % (42.0-75.0); PLATELET COUNT 142 X10^3/uL (150.0-450.0); RED BLOOD COUNT 3.12 X10^6/uL (4.7-6.0); RED CELL DISTRIBUTION WIDTH 15.5 % (11.6-16.5); WHITE BLOOD COUNT 2.7 X10^3/uL (3.6-10.0)
[2018-03-09 06:44] LABS: ALANINE AMINOTRANSFERASE 22 Units/L (12-78); ALBUMIN 2.4 g/dL (3.4-5.0); ALKALINE PHOSPHATASE 69 Units/L (46-116); ASPARTATE AMINO TRANSFERASE 15 Units/L (15-37); BLOOD UREA NITROGEN 5 mg/dL (7-18); CALCIUM 8.2 mg/dL (8.5-10.1); CARBON DIOXIDE 30.1 mmol/L (21-32); CHLORIDE 109 mmol/L (98-107); COR CA(FOR HYPOALB) 9.5 mg/dL (8.5-10.1); CREATININE 0.72 mg/dL (0.70-1.30); SODIUM 144 mmol/L (136-145); TOTAL PROTEIN 5.4 g/dL (6.4-8.2); eGFR NON BLACK RACES > 60 (>60)
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
[2018-03-09] MEDS: PHENERGAN INJ 25 MG IV PRN ×2 (08:21→15:14)
[2018-03-09] MEDS: NORCO 7.5/325 MG TAB PO PRN ×2 (08:22→23:11)
[2018-03-09] MEDS: EFFEXOR TAB 37.5 MG (BID DOSING) PO SCH (08:23)
--- NOTE | 2018-03-09 18:09 | PCM.PROG ---
Progress Note - Progress Note for Day of Date: 03/08/18 - Subjective Subjective: The patient is a 42-year-old white male who was recently hospitalized at [facility] secondary to sepsis with staph epidermis. Patient had 4 different blood cultures at 2 different drawl times that were positive. Patient was discharged home on IV vancomycin. Home health nurse contacted the office with systolic blood pressures in the low 90s and heart rate in the 40s, patient was admitted for treatment of bacteremia and removal for picc line. pt has had picc line replacement. Cultures collected on this admission pending. pt currently on Iv atbs therapy. Pt co nausea this am and abdominal pain. pt states he has attempted to eat but then vomits. pt diet changed to clear liquids until nausea improves. KUB this am, continue with am labs. - Past Medical Family Social History Past Med/Fam/Surg Hx: No changes since H&P Allergies: Allergies levofloxacin [From Levaquin] Allergy (Verified 01/29/18 13:44) penicillin G Allergy (Verified 09/14/17 17:05) morphine Adverse Reaction (Verified 03/29/17 14:20) - Review of Systems ROS: No change since H&P - Vital Signs and I&O's Vital Signs: Temperature 98.5 F Pulse Rate [Right Brachial] 62 Pulse Rate [Left Radial] 60 Respiratory Rate 18 Blood Pressure [Left Arm] 142/73 Blood Pressure [Right Arm] 112/62 Blood Pressure 120/79 O2 Sat by Pulse Oximetry 96 Intake and Output: Intake & Output 03/07/18 03/08/18 03/09/18 03/10/18 11:59 11:59 11:59 11:59 Intake Total 2014 2620 / 2620 1720 / 1720 Output Total 0 / 0 Balance 20140 / 2620 1720 / 1720 - Physical Exam Oriented: Normal Eyes: Normal Ear: Normal Nose: Normal Throat: Normal Respiratory: Normal Cardiovascular: Normal : Normal Auscultation: Bowel Sounds: Normal Tenderness: LUQ, Epigastric Skin: Normal Musculoskeletal: Normal Psychiatric: Depression Mood Description: Calm Affect: Depressed Speech Pattern: Clear - Laboratory and Diagnostics Result Diagrams: 03/09/18 05:50 03/09/18 05:50 Labs: 03/07/18 13:41 Blood Blood Culture - Preliminary 03/07/18 14:51 Catheter Tip - Other Catheter Tip Culture - Preliminary 03/07/18 13:28 Blood Blood Culture - Preliminary Laboratory WBC 2.7 X10^3/uL (3.6-10.0) L 03/09/18 05:50 RBC 3.12 X10^6/uL (4.7-6.0) L 03/09/18 05:50 Hgb 9.2 g/dL (13.5-18.0) L D 03/09/18 05:50 Hct 26.7 % (42.0-54.0) L 03/09/18 05:50 MCV 85.5 fL (80.0-100.0) 03/09/18 05:50 MCH 29.5 pg (27.0-34.0) 03/09/18 05:50 MCHC 34.4 g/dL (33.0-35.0) 03/09/18 05:50 RDW 15.5 % (11.6-16.5) 03/09/18 05:50 Plt Count 142 X10^3/uL (150.0-450.0) L 03/09/18 05:50 MPV 8.1 fL (7.4-11.0) 03/09/18 05:50 Neut % (Auto) 37.1 % (42.0-75.0) L 03/09/18 05:50 Lymph % (Auto) 52.0 % (21.0-51.0) H 03/09/18 05:50 [place] % (Auto) 7.2 % (0.0-13.0) 03/09/18 05:50 Eos % (Auto) 2.8 % (0.9-2.9) 03/09/18 05:50 Baso % (Auto) 0.9 % (0.2-1.0) 03/09/18 05:50 Neut # (Auto) 1.0 x10^3/uL (2.2-4.8) L 03/09/18 05:50 Lymph # (Auto) 1.4 X10^3/uL (1.3-2.9) 03/09/18 05:50 [place] # (Auto) 0.2 x10^3/uL (0.3-0.8) L 03/09/18 05:50 Eos # (Auto) 0.1 x10^3/uL (0.0-0.2) 03/09/18 05:50 Baso # (Auto) 0.0 X10^3/uL (0.0-0.1) 03/09/18 05:50 Absolute Nucleated RBC 0.1 /100WBC 03/09/18 05:50 INR Target Range - 03/07/18 13:41 INR 0.99 (0.8-1.3) 03/07/18 13:41 APTT 33.3 SECONDS (22.9-36.5) 03/07/18 13:41 PTT Comment - 03/07/18 13:41 Sodium 144 mmol/L (136-145) 03/09/18 05:50 Corrected Sodium TNP 03/09/18 05:50 Potassium 3.9 mmol/L (3.5-5.1) 03/09/18 05:50 Chloride 109 mmol/L (98-107) H 03/09/18 05:50 Carbon Dioxide 30.1 mmol/L (21-32) 03/09/18 05:50 BUN 5 mg/dL (7-18) L 03/09/18 05:50 Creatinine 0.72 mg/dL (0.70-1.30) 03/09/18 05:50 Est GFR (MDRD) Af Amer > 60 (>60) 03/09/18 05:50 Est GFR (MDRD) Non-Af > 60 (>60) 03/09/18 05:50 Glucose 92 mg/dL (65-99) 03/09/18 05:50 Lactic Acid 0.4 mmol/L (0.4-2.0) 03/08/18 06:00 Calcium 8.2 mg/dL (8.5-10.1) L 03/09/18 05:50 Corrected Calcium 9.5 mg/dL (8.5-10.1) 03/09/18 05:50 Phosphorus 5.6 mg/dL (2.6-4.7) H 03/07/18 13:41 Magnesium 1.8 mg/dL (1.7-2.9) 03/07/18 13:41 Total Bilirubin 0.20 mg/dL (0.2-1.0) 03/09/18 05:50 AST 15 Units/L (15-37) 03/09/18 05:50 ALT 22 Units/L (12-78) 03/09/18 05:50 Alkaline Phosphatase 69 Units/L (46-116) 03/09/18 05:50 Creatine Kinase 25 Units/L (39-308) L 03/07/18 13:41 CK-MB (CK-2) < 1.0 ng/mL (0-4.0) 03/07/18 13:41 CK/CKMB % Calc 4.0 % (<4) 03/07/18 13:41 Troponin I < 0.02 ng/mL (0-1.5) 03/07/18 13:41 Total Protein 5.4 g/dL (6.4-8.2) L 03/09/18 05:50 Albumin 2.4 g/dL (3.4-5.0) L 03/09/18 05:50 Globulin 3.0 g/dL (2.5-4.5) 03/09/18 05:50 Albumin/Globulin Ratio 0.8 Ratio (1.1-2.1) L 03/09/18 05:50 Amylase 75 Units/L (25-115) 03/07/18 13:41 Lipase 69 Units/L (73-393) L 03/07/18 13:41 Specimen Type Random urine 03/07/18 21:17 Urine Color Straw (YELLOW) 03/07/18 21:17 Urine Appearance Clear (CLEAR) 03/07/18 21:17 Urine pH 6.0 (5.0 - 8.0) 03/07/18 21:17 Ur Specific [place] 1.010 (1.000-1.030) 03/07/18 21:17 Urine Protein Negative (NEGATIVE) 03/07/18 21:17 Urine Glucose (UA) Negative (NEGATIVE) 03/07/18 21:17 Urine Ketones Negative (NEGATIVE) 03/07/18 21:17 Urine Occult Blood Negative (NEGATIVE) 03/07/18 21:17 Urine Nitrite Negative (NEGATIVE) 03/07/18 21:17 Urine Bilirubin Negative (NEGATIVE) 03/07/18 21:17 Urine Urobilinogen Normal (NORMAL) 03/07/18 21:17 Ur Leukocyte Esterase Negative (NEGATIVE) 03/07/18 21:17 Vancomycin Trough 18.1 ug/mL (15-20) 03/08/18 21:30 - Plan (1) Staphylococcus epidermidis sepsis Status: Acute Plan: Continue Vanco. S/P Change PICC, New BC x 2 on admission. gentle iv hydration. am labs, nausea control. continue IV TPN (2) Hypotension Status: Acute Plan: Monitor BP, IVFs. Labs. (3) Abdominal pain Status: Acute Qualifiers: Abdominal location: periumbilical Qualified Code(s): R10.33 - Periumbilical pain (4) Nausea and vomiting Status: Acute (5) Depression Status: Chronic Qualifiers: Depression Type: reactive depression Qualified Code(s): F32.9 - Major depressive disorder, single episode, unspecified
--- NOTE | 2018-03-09 18:12 | PCM.PROG ---
Progress Note - Progress Note for Day of Date: 03/09/18 - Subjective Subjective: The patient is a 42-year-old white male who was recently hospitalized at [facility] secondary to sepsis with staph epidermis. Patient had 4 different blood cultures at 2 different drawl times that were positive. Patient was discharged home on IV vancomycin. Home health nurse contacted the office with systolic blood pressures in the low 90s and heart rate in the 40s, patient was admitted for treatment of bacteremia and removal for picc line. pt has had picc line replacement. Cultures collected on this admission pending. pt currently on Iv atbs therapy. Pt co nausea this am and abdominal pain. pt states he has attempted to eat but then vomits. pt diet changed to clear liquids until nausea improves. KUB ordered for this am, report pending, continue with am labs. - Past Medical Family Social History Past Med/Fam/Surg Hx: No changes since H&P Allergies: Allergies levofloxacin [From Levaquin] Allergy (Verified 01/29/18 13:44) penicillin G Allergy (Verified 09/14/17 17:05) morphine Adverse Reaction (Verified 03/29/17 14:20) - Review of Systems ROS: No change since H&P - Vital Signs and I&O's Vital Signs: Temperature 98.5 F Pulse Rate [Right Brachial] 62 Pulse Rate [Left Radial] 60 Respiratory Rate 18 Blood Pressure [Left Arm] 142/73 Blood Pressure [Right Arm] 112/62 Blood Pressure 120/79 O2 Sat by Pulse Oximetry 96 Intake and Output: Intake & Output 03/07/18 03/08/18 03/09/18 03/10/18 11:59 11:59 11:59 11:59 Intake Total 2014 2620 / 2620 1720 / 1720 Output Total 0 / 0 Balance 2014 262 / 2620 1720 / 1720 - Physical Exam Oriented: Normal Eyes: Normal Ear: Normal Nose: Normal Throat: Normal Respiratory: Normal Cardiovascular: Normal : Normal Auscultation: Bowel Sounds: Normal Tenderness: LUQ, Epigastric Skin: Normal Musculoskeletal: Normal Psychiatric: Depression Mood Description: Calm Affect: Depressed Speech Pattern: Clear - Laboratory and Diagnostics Result Diagrams: 03/09/18 05:50 03/09/18 05:50 Labs: 03/07/18 13:41 Blood Blood Culture - Preliminary 03/07/18 14:51 Catheter Tip - Other Catheter Tip Culture - Preliminary 03/07/18 13:28 Blood Blood Culture - Preliminary Laboratory WBC 2.7 X10^3/uL (3.6-10.0) L 03/09/18 05:50 RBC 3.12 X10^6/uL (4.7-6.0) L 03/09/18 05:50 Hgb 9.2 g/dL (13.5-18.0) L D 03/09/18 05:50 Hct 26.7 % (42.0-54.0) L 03/09/18 05:50 MCV 85.5 fL (80.0-100.0) 03/09/18 05:50 MCH 29.5 pg (27.0-34.0) 03/09/18 05:50 MCHC 34.4 g/dL (33.0-35.0) 03/09/18 05:50 RDW 15.5 % (11.6-16.5) 03/09/18 05:50 Plt Count 142 X10^3/uL (150.0-450.0) L 03/09/18 05:50 MPV 8.1 fL (7.4-11.0) 03/09/18 05:50 Neut % (Auto) 37.1 % (42.0-75.0) L 03/09/18 05:50 Lymph % (Auto) 52.0 % (21.0-51.0) H 03/09/18 05:50 [place] % (Auto) 7.2 % (0.0-13.0) 03/09/18 05:50 Eos % (Auto) 2.8 % (0.9-2.9) 03/09/18 05:50 Baso % (Auto) 0.9 % (0.2-1.0) 03/09/18 05:50 Neut # (Auto) 1.0 x10^3/uL (2.2-4.8) L 03/09/18 05:50 Lymph # (Auto) 1.4 X10^3/uL (1.3-2.9) 03/09/18 05:50 [place] # (Auto) 0.2 x10^3/uL (0.3-0.8) L 03/09/18 05:50 Eos # (Auto) 0.1 x10^3/uL (0.0-0.2) 03/09/18 05:50 Baso # (Auto) 0.0 X10^3/uL (0.0-0.1) 03/09/18 05:50 Absolute Nucleated RBC 0.1 /100WBC 03/09/18 05:50 INR Target Range - 03/07/18 13:41 INR 0.99 (0.8-1.3) 03/07/18 13:41 APTT 33.3 SECONDS (22.9-36.5) 03/07/18 13:41 PTT Comment - 03/07/18 13:41 Sodium 144 mmol/L (136-145) 03/09/18 05:50 Corrected Sodium TNP 03/09/18 05:50 Potassium 3.9 mmol/L (3.5-5.1) 03/09/18 05:50 Chloride 109 mmol/L (98-107) H 03/09/18 05:50 Carbon Dioxide 30.1 mmol/L (21-32) 03/09/18 05:50 BUN 5 mg/dL (7-18) L 03/09/18 05:50 Creatinine 0.72 mg/dL (0.70-1.30) 03/09/18 05:50 Est GFR (MDRD) Af Amer > 60 (>60) 03/09/18 05:50 Est GFR (MDRD) Non-Af > 60 (>60) 03/09/18 05:50 Glucose 92 mg/dL (65-99) 03/09/18 05:50 Lactic Acid 0.4 mmol/L (0.4-2.0) 03/08/18 06:00 Calcium 8.2 mg/dL (8.5-10.1) L 03/09/18 05:50 Corrected Calcium 9.5 mg/dL (8.5-10.1) 03/09/18 05:50 Phosphorus 5.6 mg/dL (2.6-4.7) H 03/07/18 13:41 Magnesium 1.8 mg/dL (1.7-2.9) 03/07/18 13:41 Total Bilirubin 0.20 mg/dL (0.2-1.0) 03/09/18 05:50 AST 15 Units/L (15-37) 03/09/18 05:50 ALT 22 Units/L (12-78) 03/09/18 05:50 Alkaline Phosphatase 69 Units/L (46-116) 03/09/18 05:50 Creatine Kinase 25 Units/L (39-308) L 03/07/18 13:41 CK-MB (CK-2) < 1.0 ng/mL (0-4.0) 03/07/18 13:41 CK/CKMB % Calc 4.0 % (<4) 03/07/18 13:41 Troponin I < 0.02 ng/mL (0-1.5) 03/07/18 13:41 Total Protein 5.4 g/dL (6.4-8.2) L 03/09/18 05:50 Albumin 2.4 g/dL (3.4-5.0) L 03/09/18 05:50 Globulin 3.0 g/dL (2.5-4.5) 03/09/18 05:50 Albumin/Globulin Ratio 0.8 Ratio (1.1-2.1) L 03/09/18 05:50 Amylase 75 Units/L (25-115) 03/07/18 13:41 Lipase 69 Units/L (73-393) L 03/07/18 13:41 Specimen Type Random urine 03/07/18 21:17 Urine Color Straw (YELLOW) 03/07/18 21:17 Urine Appearance Clear (CLEAR) 03/07/18 21:17 Urine pH 6.0 (5.0 - 8.0) 03/07/18 21:17 Ur Specific [place] 1.010 (1.000-1.030) 03/07/18 21:17 Urine Protein Negative (NEGATIVE) 03/07/18 21:17 Urine Glucose (UA) Negative (NEGATIVE) 03/07/18 21:17 Urine Ketones Negative (NEGATIVE) 03/07/18 21:17 Urine Occult Blood Negative (NEGATIVE) 03/07/18 21:17 Urine Nitrite Negative (NEGATIVE) 03/07/18 21:17 Urine Bilirubin Negative (NEGATIVE) 03/07/18 21:17 Urine Urobilinogen Normal (NORMAL) 03/07/18 21:17 Ur Leukocyte Esterase Negative (NEGATIVE) 03/07/18 21:17 Vancomycin Trough 18.1 ug/mL (15-20) 03/08/18 21:30 - Plan (1) Staphylococcus epidermidis sepsis Status: Acute Plan: Continue Vanco. S/P Change PICC, New BC x 2 on admission. gentle iv hydration. am labs, nausea control. continue IV TPN (2) Hypotension Status: Acute Plan: Monitor BP, IVFs. Labs. (3) Abdominal pain Status: Acute Qualifiers: Abdominal location: periumbilical Qualified Code(s): R10.33 - Periumbilical pain Plan: kub, pain and nausea control (4) Nausea and vomiting Status: Acute (5) Depression Status: Chronic Qualifiers: Depression Type: reactive depression Qualified Code(s): F32.9 - Major depressive disorder, single episode, unspecified (6) Protein-calorie malnutrition, moderate Status: Acute Plan: resume TPN
--- NOTE | 2018-03-09 20:48 | RAD ---
Indication: Constipation, abdominal pain Exam: KUB, single view was obtained Comparison: January 27, 2018. Findings: The gas pattern is unremarkable. There is a surgical clip along the right upper quadrant an d left pelvis. No free air is seen. No urinary calculi are identified. The bones are intact. The left abdomen is incompletely imaged. Impression: Suboptimal positioning but no definite acute finding. Reported By:
[2018-03-09] MEDS: ATIVAN TAB 1 MG PO SCH (21:23)
[2018-03-09] MEDS: CLINIMIX IV SCH ×4 (22:10)
[2018-03-09] MEDS: LIPOSYN III 20% IV SCH ×4 (22:10)
[2018-03-09] MEDS: [UNRECOGNIZED DRUG - OTHER] IV SCH ×4 (22:10)
[2018-03-10 05:32] LABS: BASOPHILS % (AUTO) 1.1 % (0.2-1.0); EOSINOPHILS # (AUTO) 0.1 x10^3/uL (0.0-0.2); HEMATOCRIT 26.7 % (42.0-54.0); HEMOGLOBIN 9.3 g/dL (13.5-18.0); LYMPHOCYTES # (AUTO) 1.1 X10^3/uL (1.3-2.9); LYMPHOCYTES % (AUTO) 41.5 % (21.0-51.0); MEAN CORPUSCULAR HEMOGLOBIN 29.9 pg (27.0-34.0); MEAN CORPUSCULAR HGB CONC 34.7 g/dL (33.0-35.0); MEAN PLATELET VOLUME 8.6 fL (7.4-11.0); MONOCYTES # (AUTO) 0.2 x10^3/uL (0.3-0.8); MONOCYTES % (AUTO) 6.6 % (0.0-13.0); NEUTROPHILS # (AUTO) 1.3 x10^3/uL (2.2-4.8); NEUTROPHILS % (AUTO) 47.8 % (42.0-75.0); PLATELET COUNT 136 X10^3/uL (150.0-450.0); RED CELL DISTRIBUTION WIDTH 15.6 % (11.6-16.5); WHITE BLOOD COUNT 2.7 X10^3/uL (3.6-10.0)
[2018-03-10 05:47] LABS: CREATININE 0.93 mg/dL (0.70-1.30)
[2018-03-10 06:00] LABS: ALANINE AMINOTRANSFERASE 21 Units/L (12-78); ALBUMIN 2.4 g/dL (3.4-5.0); ALKALINE PHOSPHATASE 65 Units/L (46-116); ASPARTATE AMINO TRANSFERASE 14 Units/L (15-37); BLOOD UREA NITROGEN 6 mg/dL (7-18); CALCIUM 7.9 mg/dL (8.5-10.1); CARBON DIOXIDE 30.9 mmol/L (21-32); CHLORIDE 107 mmol/L (98-107); COR CA(FOR HYPOALB) 9.2 mg/dL (8.5-10.1); COR NA(FOR HYPERGLY) 146 mmol/L (136-145); CREATININE 0.87 mg/dL (0.70-1.30); SODIUM 143 mmol/L (136-145); TOTAL PROTEIN 5.8 g/dL (6.4-8.2); eGFR NON BLACK RACES > 60 (>60)
[2018-03-10 06:29] LABS: VANCOMYCIN,TROUGH 20.3 ug/mL (15-20)
[2018-03-10] MEDS: VANCOMYCIN HCL 1 GM VIAL 1 G in D5W 250 ML IV 250 ML IV SCH (06:30)
[2018-03-10] MEDS: NS 1000 ML 1,000 ML IV SCH ×3 (07:16→14:32)
[2018-03-10] MEDS: PHENERGAN INJ 25 MG IV PRN ×3 (08:03→21:19)
[2018-03-10] MEDS: EFFEXOR TAB 37.5 MG (BID DOSING) PO SCH (08:03)
[2018-03-10] MEDS: NORCO 7.5/325 MG TAB PO PRN ×2 (08:06→19:30)
[2018-03-10] MEDS: LIPOSYN III 20% IV SCH ×4 (21:18)
[2018-03-10] MEDS: [UNRECOGNIZED DRUG - OTHER] IV SCH ×4 (21:18)
[2018-03-10] MEDS: CLINIMIX IV SCH ×4 (21:18)
[2018-03-10] MEDS: ATIVAN TAB 1 MG PO SCH (21:19)
[2018-03-10] MEDS: VANCOMYCIN 1 GRAM PREMIX (ADDVANTAGE) 250 ML IV SCH (21:20)
[2018-03-11 06:51] LABS: BASOPHILS % (AUTO) 0.7 % (0.2-1.0); EOSINOPHILS # (AUTO) 0.1 x10^3/uL (0.0-0.2); EOSINOPHILS % (AUTO) 2.9 % (0.9-2.9); HEMATOCRIT 27.3 % (42.0-54.0); HEMOGLOBIN 9.3 g/dL (13.5-18.0); LYMPHOCYTES # (AUTO) 1.4 X10^3/uL (1.3-2.9); LYMPHOCYTES % (AUTO) 46.4 % (21.0-51.0); MEAN CORPUSCULAR HEMOGLOBIN 29.3 pg (27.0-34.0); MEAN CORPUSCULAR HGB CONC 34.1 g/dL (33.0-35.0); MEAN PLATELET VOLUME 8.8 fL (7.4-11.0); MONOCYTES # (AUTO) 0.2 x10^3/uL (0.3-0.8); MONOCYTES % (AUTO) 6.9 % (0.0-13.0); NEUTROPHILS # (AUTO) 1.3 x10^3/uL (2.2-4.8); NEUTROPHILS % (AUTO) 43.1 % (42.0-75.0); PLATELET COUNT 137 X10^3/uL (150.0-450.0); RED BLOOD COUNT 3.17 X10^6/uL (4.7-6.0)
[2018-03-11 07:20] LABS: ALANINE AMINOTRANSFERASE 19 Units/L (12-78); ALBUMIN 2.5 g/dL (3.4-5.0); ALKALINE PHOSPHATASE 66 Units/L (46-116); ASPARTATE AMINO TRANSFERASE 16 Units/L (15-37); BLOOD UREA NITROGEN 6 mg/dL (7-18); CARBON DIOXIDE 33.3 mmol/L (21-32); CHLORIDE 109 mmol/L (98-107); COR CA(FOR HYPOALB) 9.2 mg/dL (8.5-10.1); SODIUM 144 mmol/L (136-145); TOTAL PROTEIN 5.5 g/dL (6.4-8.2); eGFR NON BLACK RACES > 60 (>60)
[2018-03-11] MEDS: EFFEXOR TAB 37.5 MG (BID DOSING) PO SCH (10:32)
[2018-03-11] MEDS: VANCOMYCIN 1 GRAM PREMIX (ADDVANTAGE) 250 ML IV SCH ×2 (10:33→19:29)
[2018-03-11] MEDS: PHENERGAN INJ 25 MG IV PRN ×2 (10:34→17:37)
[2018-03-11] MEDS: NORCO 7.5/325 MG TAB PO PRN ×2 (10:34→17:37)
[2018-03-11] MEDS ORDERED: K-RIDER 10 MEQ/NS 100 ML 10 MEQ/100 ML BAG IV ONE ×2 (11:39→13:09)
[2018-03-11] MEDS ORDERED: REGLAN INJ 10 MG VIAL IVP PRN (11:39)
[2018-03-11] MEDS: NS 1000 ML 1,000 ML IV SCH (17:37)
[2018-03-11 21:19] VITALS: BMI 23.3
[2018-03-12 00:37] VITALS: BP 134/75
== END 2018-03-11 21:45 | disposition home health service (06) ==
LOC: MED/SURG
PROVIDERS: ADMIT Internal Medicine; ATTEND Internal Medicine
DX: E44.0 Moderate protein-calorie malnutrition; K59.00 Constipation, unspecified; R82.99 Other abnormal findings in urine; Z93.1 Gastrostomy status; R00.1 Bradycardia, unspecified; A41.1 Sepsis due to other specified staphylococcus; Z79.899 Other long term (current) drug therapy; I95.9 Hypotension, unspecified; R11.2 Nausea with vomiting, unspecified; R10.9 Unspecified abdominal pain
CPT/HCPCS: 36415; 36569; 71010; 71045; 74000; 74018; 80053; 80202; 81003; 82150; 82533; 82550; 82553; 82565; 83605; 83690; 83735; 84100; 84484; 85025; 85610; 85730; 87040; 87070; 93005; 93010; A4222; B5200; G0378; J2405; J2550; J3370; J3480; J7030; J7060

== ENCOUNTER 2019-03-05 17:04 | Inpatient (IN) ==
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
[2019-03-05] MEDS ORDERED: ZOFRAN TAB 4 MG SL PRN (18:09)
[2019-03-05 18:29] LABS: BASOPHILS # (AUTO) 0.1 X10^3/uL (0.0-0.1); BASOPHILS % (AUTO) 0.8 % (0.2-1.0); EOSINOPHILS # (AUTO) 0.1 x10^3/uL (0.0-0.2); EOSINOPHILS % (AUTO) 1.8 % (0.9-2.9); HEMATOCRIT 46.4 % (42.0-54.0); HEMOGLOBIN 16.2 g/dL (13.5-18.0); LYMPHOCYTES # (AUTO) 1.8 X10^3/uL (1.3-2.9); LYMPHOCYTES % (AUTO) 22.6 % (21.0-51.0); MEAN CORPUSCULAR HEMOGLOBIN 29.4 pg (27.0-34.0); MEAN CORPUSCULAR HGB CONC 34.9 g/dL (33.0-35.0); MEAN CORPUSCULAR VOLUME 84.3 fL (80.0-100.0); MEAN PLATELET VOLUME 9.4 fL (7.4-11.0); MONOCYTES # (AUTO) 0.5 x10^3/uL (0.3-0.8); MONOCYTES % (AUTO) 6.4 % (0.0-13.0); NEUTROPHILS # (AUTO) 5.4 x10^3/uL (2.2-4.8); NEUTROPHILS % (AUTO) 68.4 % (42.0-75.0); PLATELET COUNT 182 X10^3/uL (150.0-450.0); WHITE BLOOD COUNT 7.9 X10^3/uL (3.6-10.0)
[2019-03-05 18:46] LABS: ALANINE AMINOTRANSFERASE 17 Units/L (12-78); ALBUMIN 3.7 g/dL (3.4-5.0); ALKALINE PHOSPHATASE 139 Units/L (46-116); ASPARTATE AMINO TRANSFERASE 14 Units/L (15-37); BLOOD UREA NITROGEN 16 mg/dL (7-18); CALCIUM 9.5 mg/dL (8.5-10.1); CARBON DIOXIDE 30.7 mmol/L (21-32); CHLORIDE 102 mmol/L (98-107); CKMB % 2.6 % (<4); CREATINE KINASE 39 Units/L (39-308); CREATINE KINASE MB < 1.0 ng/mL (0-4.0); CREATININE 1.09 mg/dL (0.70-1.30); SODIUM 142 mmol/L (136-145); TOTAL PROTEIN 7.8 g/dL (6.4-8.2); TROPONIN I < 0.02 ng/mL (0-1.5); eGFR NON BLACK RACES > 60 (>60)
[2019-03-05] MEDS: PHENERGAN INJ 25 MG IM PRN (19:29)
[2019-03-05] MEDS: ROXICODONE TAB 5 MG PO PRN (22:32)
[2019-03-05 23:30] VITALS: BMI 17.9
[2019-03-05 23:54] LABS: CKMB % 1.4 % (<4); CREATINE KINASE 73 Units/L (39-308); CREATINE KINASE MB < 1.0 ng/mL (0-4.0); TROPONIN I < 0.02 ng/mL (0-1.5)
[2019-03-06] MEDS ORDERED: POTASSIUM CHLORIDE LIQ 20 MEQ UDC PO PRN (01:30)
[2019-03-06] MEDS ORDERED: POTASSIUM CHL 60 MEQ/NS 0.45% 500 ML IV PRN (01:30)
[2019-03-06] MEDS ORDERED: MICRO K EXTEN CAP 10 MEQ PO PRN (01:30)
[2019-03-06] MEDS ORDERED: POTASSIUM CHL 40 MEQ/NS 0.45% 500 ML IV PRN (01:30)
[2019-03-06] MEDS ORDERED: KLOR-CON PO PRN (01:30)
[2019-03-06] MEDS ORDERED: K-DUR TAB 20 MEQ ONE (01:43)
[2019-03-06] MEDS: K-DUR TAB 20 MEQ PO PRN ×2 (01:50→11:11)
[2019-03-06 02:26] LABS: BILIRUBIN,URINE NEGATIVE (NEGATIVE); BLOOD/HEMOGLOBIN,URINE NEGATIVE (NEGATIVE); GLUCOSE, URINE NEGATIVE (NEGATIVE); KETONES,URINE NEGATIVE (NEGATIVE); LEUKOCYTE ESTERASE ,URINE NEGATIVE (NEGATIVE); NITRITES,URINE NEGATIVE (NEGATIVE); PROTEIN,URINE 2+ (NEGATIVE); UROBILINOGEN,URINE NORMAL (NORMAL)
[2019-03-06 02:35] LABS: APPEARANCE,URINE CLEAR (CLEAR); BACTERIA,URINE NEGATIVE /HPF (NEGATIVE); CALCIUM OXALATE CRYSTALS,UR MODERATE /HPF (NEGATIVE); COLOR,URINE AMBER (YELLOW); RBC,URINE 0-2 /HPF (NONE SEEN); SQUAMOUS EPITHELIAL CELL,UR NEGATIVE /HPF (NEGATIVE)
[2019-03-06 02:36] LABS: AMORPHOUS SEDIMENT,UR TRACE /HPF (NEGATIVE); HYALINE CASTS, URINE RARE /LPF (NEGATIVE); MUCUS,URINE NUMEROUS /HPF (NEGATIVE)
[2019-03-06] MEDS ORDERED: NS 1000 ML 1,000 ML ONE (05:30)
[2019-03-06] MEDS: MAGNESIUM SULFATE 1 GRAM/100 mL PREMIX 1 GM/100 ML BAG IV PRN ×2 (05:36→07:25)
[2019-03-06] MEDS: ROXICODONE TAB 5 MG PO PRN ×3 (05:38→21:51)
--- NOTE | 2019-03-06 06:38 | RAD ---
HISTORY: Generalized weakness Study: Chest AP portable Comparison: 03/07/2018 Findings: The patient is status post median sternotomy. The heart is within normal limits in size. The [place] are normal. The lungs are well inflated and clear. No pleural effusions are identified. The bony thorax is unremarkable. IMPRESSION: No significant abnormality identified Reported By:
[2019-03-06 06:43] LABS: CKMB % 1.5 % (<4); CREATINE KINASE 68 Units/L (39-308); CREATINE KINASE MB < 1.0 ng/mL (0-4.0); TROPONIN I < 0.02 ng/mL (0-1.5)
[2019-03-06 07:28] LABS: BASOPHILS % (AUTO) 0.7 % (0.2-1.0); EOSINOPHILS # (AUTO) 0.1 x10^3/uL (0.0-0.2); EOSINOPHILS % (AUTO) 2.1 % (0.9-2.9); HEMATOCRIT 37.2 % (42.0-54.0); HEMOGLOBIN 12.9 g/dL (13.5-18.0); LYMPHOCYTES # (AUTO) 1.9 X10^3/uL (1.3-2.9); LYMPHOCYTES % (AUTO) 29.8 % (21.0-51.0); MEAN CORPUSCULAR HEMOGLOBIN 29.1 pg (27.0-34.0); MEAN CORPUSCULAR HGB CONC 34.7 g/dL (33.0-35.0); MEAN PLATELET VOLUME 9.4 fL (7.4-11.0); MONOCYTES # (AUTO) 0.6 x10^3/uL (0.3-0.8); MONOCYTES % (AUTO) 9.9 % (0.0-13.0); NEUTROPHILS # (AUTO) 3.7 x10^3/uL (2.2-4.8); NEUTROPHILS % (AUTO) 57.5 % (42.0-75.0); PLATELET COUNT 140 X10^3/uL (150.0-450.0); RED BLOOD COUNT 4.43 X10^6/uL (4.7-6.0); RED CELL DISTRIBUTION WIDTH 13.7 % (11.6-16.5); WHITE BLOOD COUNT 6.5 X10^3/uL (3.6-10.0)
[2019-03-06 07:38] LABS: ALANINE AMINOTRANSFERASE 15 Units/L (12-78); ALBUMIN 2.9 g/dL (3.4-5.0); ALKALINE PHOSPHATASE 101 Units/L (46-116); ASPARTATE AMINO TRANSFERASE 14 Units/L (15-37); BLOOD UREA NITROGEN 13 mg/dL (7-18); CALCIUM 8.7 mg/dL (8.5-10.1); CARBON DIOXIDE 30.4 mmol/L (21-32); CHLORIDE 106 mmol/L (98-107); COR CA(FOR HYPOALB) 9.6 mg/dL (8.5-10.1); COR NA(FOR HYPERGLY) 144 mmol/L (136-145); CREATININE 1.01 mg/dL (0.70-1.30); SODIUM 144 mmol/L (136-145); TOTAL PROTEIN 5.9 g/dL (6.4-8.2); eGFR NON BLACK RACES > 60 (>60)
[2019-03-06] MEDS: PHENERGAN INJ 25 MG IM PRN ×2 (10:29→16:30)
--- NOTE | 2019-03-06 10:35 | RAD ---
Exam: Portable chest History: 43-year-old male with cough Comparison: Previous chest radiograph from 03/05/2019. Findings: Patient is status post median sternotomy. Heart size and pulmonary vasculature are normal. Lungs are clear with no infiltrate or significant effusion on either side. Visualized aspect of the bony thorax is unremarkable as well. Impression: No acute cardiopulmonary abnormality is Reported By:
[2019-03-06] MEDS: PAXIL PO SCH (11:11)
[2019-03-06] MEDS: REGLAN TAB 10 MG PO SCH ×4 (11:12→21:50)
[2019-03-06] MEDS ORDERED: XYLOCAINE 1 % (PLAIN) ONE (14:18)
[2019-03-06] MEDS: CARAFATE PO SCH ×3 (15:59→21:50)
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
[2019-03-06] MEDS ORDERED: NS 1/2 1000 ML IV 1,000 ML ONE (18:09)
[2019-03-06] MEDS: NS 1/2 1000 ML IV 1,000 ML IV SCH (18:30)
--- NOTE | 2019-03-06 19:00 | CT ---
CT OF THE ABDOMEN AND PELVIS WITH CONTRAST HISTORY: Abdominal pain and vomiting. Nonhealing site of PEG tube removal. Failure to thrive. Comparison: None Technique: Multiple axial images of the abdomen and pelvis were obtained from the lung bases to the pubic symphysis follow the administration of IV contrast. Dose reduction techniques including Automated Exposure Control (AEC) and adjustment of mA and kV were utlized. Findings: The heart is normal in size. There is no pericardial effusion. Lung bases are clear without focal consolidation, pleural effusion or pneumothorax. Liver and spleen are normal in size, enhancement characteristics and contour. No focal lesions. The portal vein is patent. No ductal dilitation. Gallbladder is present. No calcified gallstones or gallbladder wall thickening. The pancreas is unremarkable. Adrenal glands are normal. Kidneys enhance symmetrically without hydronephrosis or nephrolithiasis. Patient's reported PEG tube site in the left mid abdomen appears grossly normal without evidence of fistulization although evaluation is limited by lack of oral contrast in that region. No bowel obstruction or inflammation. Normal appendix. No abnormal appearing mesenteric or retroperitoneal lymph nodes. No free fluid or fluid collections. Severe diverticulosis without focal diverticular inflammation. The bladder is normal in appearance. Prostate measures 5.2 cm. No free fluid or abnormal pelvic lymph nodes. No aggressive osseous lesions. IMPRESSION: 1. No definite source of patient's failure to thrive identified on this examination. 2. No source of patient's nonhealing ulcers identified. No definite fistula on this limited examination. Reported By:
[2019-03-06] MEDS: SEROquel TAB 100 MG PO SCH (21:56)
[2019-03-07 05:29] LABS: BASOPHILS % (AUTO) 0.4 % (0.2-1.0); EOSINOPHILS # (AUTO) 0.1 x10^3/uL (0.0-0.2); EOSINOPHILS % (AUTO) 2.1 % (0.9-2.9); HEMATOCRIT 34.8 % (42.0-54.0); HEMOGLOBIN 12.2 g/dL (13.5-18.0); LYMPHOCYTES # (AUTO) 1.7 X10^3/uL (1.3-2.9); LYMPHOCYTES % (AUTO) 40.5 % (21.0-51.0); MEAN CORPUSCULAR HEMOGLOBIN 29.6 pg (27.0-34.0); MEAN CORPUSCULAR HGB CONC 35.1 g/dL (33.0-35.0); MEAN CORPUSCULAR VOLUME 84.4 fL (80.0-100.0); MEAN PLATELET VOLUME 9.6 fL (7.4-11.0); MONOCYTES # (AUTO) 0.4 x10^3/uL (0.3-0.8); PLATELET COUNT 95 X10^3/uL (150.0-450.0); RED BLOOD COUNT 4.13 X10^6/uL (4.7-6.0); RED CELL DISTRIBUTION WIDTH 14.1 % (11.6-16.5); WHITE BLOOD COUNT 4.2 X10^3/uL (3.6-10.0)
[2019-03-07 05:34] LABS: ALANINE AMINOTRANSFERASE 14 Units/L (12-78); ALBUMIN 2.7 g/dL (3.4-5.0); ALKALINE PHOSPHATASE 99 Units/L (46-116); ASPARTATE AMINO TRANSFERASE 16 Units/L (15-37); BLOOD UREA NITROGEN 7 mg/dL (7-18); CALCIUM 8.8 mg/dL (8.5-10.1); CARBON DIOXIDE 30.3 mmol/L (21-32); CHLORIDE 105 mmol/L (98-107); COR CA(FOR HYPOALB) 9.8 mg/dL (8.5-10.1); CREATININE 0.89 mg/dL (0.70-1.30); MAGNESIUM 1.5 mg/dL (1.7-2.9); SODIUM 142 mmol/L (136-145); TOTAL PROTEIN 5.7 g/dL (6.4-8.2); eGFR NON BLACK RACES > 60 (>60)
[2019-03-07] MEDS: NS 1/2 1000 ML IV 1,000 ML IV SCH ×2 (05:57→20:51)
[2019-03-07] MEDS ORDERED: NS 1/2 1000 ML IV 1,000 ML ONE (06:00)
[2019-03-07] MEDS: CARAFATE PO SCH ×4 (08:10→20:53)
[2019-03-07] MEDS: ROXICODONE TAB 5 MG PO PRN ×2 (08:10→19:42)
[2019-03-07] MEDS: REGLAN TAB 10 MG PO SCH ×4 (08:10→20:54)
[2019-03-07] MEDS: PAXIL PO SCH (08:10)
[2019-03-07] MEDS ORDERED: XYLOCAINE 1 % (PLAIN) ONE (13:34)
--- NOTE | 2019-03-07 15:01 | RAD ---
HISTORY: Line placement. Study: Single view of the chest. Comparison:None Findings: The cardiomediastinal silhouette is normal. No focal consolidations, pleural effusions or pneumothorax. Osseous structures demonstrate no acute abnormality. A right central catheter terminates over the expected area of the SVC. IMPRESSION: 1. No acute cardiopulmonary process. 2. A right central catheter terminating over the expected area of the SVC. Reported By:
--- NOTE | 2019-03-07 15:12 | DR.UPDATE ---
H&P Update History and Physical Update: History and Physical reviewed and patient examined. Changes noted: NO Yes with the following:agree with H&P. Will place picc Procedures (ALL) - Central Line Placement PCM.CLCO: written consent Time out performed: Yes Patient placed pm monitor/pulse ox: Yes prep: mask, gown, gloves, other Centrial line prep: chlorhexidine scrub Local anesthsia used: lidocane 1% Ultrasound used for placement: Yes (right balilic and brachial id'd) Central line lumen ininserted: double (5Fr power picc. trimmed to 44cm. first attempt at basilic unsuccessful. right brachial successful. 9cm exposed, however) Post procedure: good blood return, all ports aspirated, flushed,capped, sterile dressing applied Post procedure xray: tip oc catheter in good position Patient tolerated procedure: Yes Complications: none
[2019-03-07] MEDS ORDERED: NS 1000 ML 1,000 ML ONE (15:51)
[2019-03-07] MEDS ORDERED: DIPRIVAN VIAL 20 ML ONE ×2 (16:07→16:23)
--- NOTE | 2019-03-07 16:44 | OR.GENERIC ---
Post-Op Note Generic - Post-Op Note Operative Report: 1-EGD with Bx 2- Balloon dilation of gastro-Jejunostomy stricture . findings : small gastric pouch and normal small bowel . stricture of the Gastrojejunostomy Pt did well , will advance his diet . if not tolerated will do UGI with SBFT .
--- NOTE | 2019-03-07 18:08 | PCM.PROG ---
Progress Note - Progress Note for Day of Date of Exam: 03/07/19 - Subjective Subjective: The patient is a 43-year-old white male who was admitted from Dr. Chana Russell office with a diagnosis of dehydration, generalized weakness, and states that he has not been able to eat in 3 weeks and has lost approximately 25-30 pounds. The patient also reports that he had a PEG tube that was pulled out three weeks ago and continues to be an open wound without healing. A gram stain was obtained on admission and is pending. Pt had multple attempts per anesthesia for PICC line placement was unsuccsesful. Pt continue to co unable to eat. Dr Alexis consulted for GI evaluation and possible feeding tube placement. CT of abd/pelvis reviewed with pt, without acute findings. - Past Medical Family Social History Past Med/Fam/Surg Hx: No changes since H&P Allergies: Allergies levofloxacin [From Levaquin] Allergy (Verified 01/29/18 13:44) penicillin G Allergy (Verified 09/14/17 17:05) morphine Adverse Reaction (Verified 03/29/17 14:20) - Review of Systems ROS: No change since H&P - Vital Signs and I&O's Vital Signs: Temperature 97.9 F Pulse Rate [Right Brachial] 59 Respiratory Rate 18 Blood Pressure [Left Arm] 108/71 Blood Pressure [Right Arm] 94/54 Blood Pressure 134/75 O2 Sat by Pulse Oximetry 97 Intake and Output: Intake & Output 03/05/19 03/06/19 03/07/19 03/08/19 11:59 11:59 11:59 11:59 Intake Total 580 / 580 1721 / 1721 1520 / 1520 Output Total 125 / 125 100 / 100 Balance 455 / 455 1621 / 1621 1520 / 1520 - Physical Exam Oriented: Normal Eyes: Normal Ear: Normal Nose: Normal Throat: Normal Respiratory: Diminished Cardiovascular: Normal : Normal Auscultation: Bowel Sounds: Normal Tenderness: LUQ, Periumbilical Skin: Decreased Turgur Musculoskeletal: Instability Psychiatric: Normal Mood Description: Calm Affect: Normal Speech Pattern: Clear, Appropriate - Laboratory and Diagnostics Result Diagrams: 03/07/19 05:06 03/07/19 05:06 Labs: 03/05/19 18:13 Blood Blood Culture - Preliminary 03/05/19 18:00 Blood Blood Culture - Preliminary 03/05/19 22:00 Abdomen Gram Stain - Final 03/05/19 22:00 Abdomen Wound Culture - Preliminary Laboratory WBC 4.2 X10^3/uL (3.6-10.0) 03/07/19 05:06 RBC 4.13 X10^6/uL (4.7-6.0) L 03/07/19 05:06 Hgb 12.2 g/dL (13.5-18.0) L 03/07/19 05:06 Hct 34.8 % (42.0-54.0) L 03/07/19 05:06 MCV 84.4 fL (80.0-100.0) 03/07/19 05:06 MCH 29.6 pg (27.0-34.0) 03/07/19 05:06 MCHC 35.1 g/dL (33.0-35.0) H 03/07/19 05:06 RDW 14.1 % (11.6-16.5) 03/07/19 05:06 Plt Count 95 X10^3/uL (150.0-450.0) L 03/07/19 05:06 MPV 9.6 fL (7.4-11.0) 03/07/19 05:06 Neut % (Auto) 48.0 % (42.0-75.0) 03/07/19 05:06 Lymph % (Auto) 40.5 % (21.0-51.0) 03/07/19 05:06 [place] % (Auto) 9.0 % (0.0-13.0) 03/07/19 05:06 Eos % (Auto) 2.1 % (0.9-2.9) 03/07/19 05:06 Baso % (Auto) 0.4 % (0.2-1.0) 03/07/19 05:06 Neut # (Auto) 2.0 x10^3/uL (2.2-4.8) L 03/07/19 05:06 Lymph # (Auto) 1.7 X10^3/uL (1.3-2.9) 03/07/19 05:06 [place] # (Auto) 0.4 x10^3/uL (0.3-0.8) 03/07/19 05:06 Eos # (Auto) 0.1 x10^3/uL (0.0-0.2) 03/07/19 05:06 Baso # (Auto) 0.0 X10^3/uL (0.0-0.1) 03/07/19 05:06 Absolute Nucleated RBC 0.0 /100WBC 03/07/19 05:06 Sodium 142 mmol/L (136-145) 03/07/19 05:06 Corrected Sodium TNP 03/07/19 05:06 Potassium 3.5 mmol/L (3.5-5.1) 03/07/19 05:06 Chloride 105 mmol/L (98-107) 03/07/19 05:06 Carbon Dioxide 30.3 mmol/L (21-32) 03/07/19 05:06 BUN 7 mg/dL (7-18) 03/07/19 05:06 Creatinine 0.89 mg/dL (0.70-1.30) 03/07/19 05:06 Est GFR (MDRD) Af Amer > 60 (>60) 03/07/19 05:06 Est GFR (MDRD) Non-Af > 60 (>60) 03/07/19 05:06 Glucose 89 mg/dL (65-99) 03/07/19 05:06 Calcium 8.8 mg/dL (8.5-10.1) 03/07/19 05:06 Corrected Calcium 9.8 mg/dL (8.5-10.1) 03/07/19 05:06 Magnesium 1.5 mg/dL (1.7-2.9) L 03/07/19 05:06 Total Bilirubin 0.30 mg/dL (0.2-1.0) 03/07/19 05:06 AST 16 Units/L (15-37) 03/07/19 05:06 ALT 14 Units/L (12-78) 03/07/19 05:06 Alkaline Phosphatase 99 Units/L (46-116) 03/07/19 05:06 Creatine Kinase 68 Units/L (39-308) 03/06/19 05:45 CK-MB (CK-2) < 1.0 ng/mL (0-4.0) 03/06/19 05:45 CK/CKMB % Calc 1.5 % (<4) 03/06/19 05:45 Troponin I < 0.02 ng/mL (0-1.5) 03/06/19 05:45 Total Protein 5.7 g/dL (6.4-8.2) L 03/07/19 05:06 Albumin 2.7 g/dL (3.4-5.0) L 03/07/19 05:06 Globulin 3.0 g/dL (2.5-4.5) 03/07/19 05:06 Albumin/Globulin Ratio 0.9 Ratio (1.1-2.1) L 03/07/19 05:06 Specimen Type Clean catch urine 03/06/19 02:04 Urine Color Shanda (YELLOW) 03/06/19 02:04 Urine Appearance Clear (CLEAR) 03/06/19 02:04 Urine pH 6.0 (5.0 - 8.0) 03/06/19 02:04 Ur Specific [place] 1.020 (1.000-1.030) 03/06/19 02:04 Urine Protein 2+ (NEGATIVE) 03/06/19 02:04 Urine Glucose (UA) Negative (NEGATIVE) 03/06/19 02:04 Urine Ketones Negative (NEGATIVE) 03/06/19 02:04 Urine Occult Blood Negative (NEGATIVE) 03/06/19 02:04 Urine Nitrite Negative (NEGATIVE) 03/06/19 02:04 Urine Bilirubin Negative (NEGATIVE) 03/06/19 02:04 Urine Urobilinogen Normal (NORMAL) 03/06/19 02:04 Ur Leukocyte Esterase Negative (NEGATIVE) 03/06/19 02:04 Urine RBC 0-2 /HPF (NONE SEEN) 03/06/19 02:04 Urine WBC 3-5 /HPF (NONE SEEN) 03/06/19 02:04 Ur Squamous Epith Cells Negative /HPF (NEGATIVE) 03/06/19 02:04 Calcium Oxalate Crystal Moderate /HPF (NEGATIVE) 03/06/19 02:04 Amorphous Sediment Trace /HPF (NEGATIVE) 03/06/19 02:04 Urine Bacteria Negative /HPF (NEGATIVE) 03/06/19 02:04 Hyaline Casts Rare /LPF (NEGATIVE) 03/06/19 02:04 Urine Mucus Numerous /HPF (NEGATIVE) 03/06/19 02:04 Ur Culture Indicated? No/not indicated 03/06/19 02:04 Tissue Pathology To follow 03/07/19 16:25 - Plan (1) Abdominal pain Status: Acute Qualifiers: Abdominal location: periumbilical Qualified Code(s): R10.33 - Periumbilical pain Plan: iv hydration, pain and nausea control. GI consult, PPI therapy, reglan ac and hs. CT abd pelvis without acute findings (2) GERD (gastroesophageal reflux disease) Status: Acute (3) Protein-calorie malnutrition, moderate Status: Acute (4) Hypokalemia Status: Acute (5) Nausea and vomiting Status: Acute
[2019-03-07] MEDS: SEROquel TAB 100 MG PO SCH (20:54)
[2019-03-07] MEDS: PHENERGAN INJ 25 MG IM PRN (20:56)
[2019-03-08] MEDS ORDERED: NS 1/2 1000 ML IV 1,000 ML ONE (01:46)
[2019-03-08] MEDS: NS 1/2 1000 ML IV 1,000 ML IV SCH ×3 (01:52→22:09)
[2019-03-08] MEDS: ROXICODONE TAB 5 MG PO PRN ×3 (04:49→22:04)
[2019-03-08 06:46] LABS: BASOPHILS % (AUTO) 0.7 % (0.2-1.0); EOSINOPHILS # (AUTO) 0.1 x10^3/uL (0.0-0.2); EOSINOPHILS % (AUTO) 2.9 % (0.9-2.9); HEMOGLOBIN 11.3 g/dL (13.5-18.0); LYMPHOCYTES # (AUTO) 0.9 X10^3/uL (1.3-2.9); LYMPHOCYTES % (AUTO) 26.8 % (21.0-51.0); MEAN CORPUSCULAR HEMOGLOBIN 29.5 pg (27.0-34.0); MEAN CORPUSCULAR HGB CONC 35.3 g/dL (33.0-35.0); MEAN CORPUSCULAR VOLUME 83.7 fL (80.0-100.0); MEAN PLATELET VOLUME 9.3 fL (7.4-11.0); MONOCYTES # (AUTO) 0.3 x10^3/uL (0.3-0.8); MONOCYTES % (AUTO) 9.6 % (0.0-13.0); NEUTROPHILS # (AUTO) 2.1 x10^3/uL (2.2-4.8); PLATELET COUNT 95 X10^3/uL (150.0-450.0); RED BLOOD COUNT 3.83 X10^6/uL (4.7-6.0); RED CELL DISTRIBUTION WIDTH 13.6 % (11.6-16.5); WHITE BLOOD COUNT 3.5 X10^3/uL (3.6-10.0)
[2019-03-08 06:57] LABS: ALANINE AMINOTRANSFERASE 16 Units/L (12-78); ALBUMIN 2.4 g/dL (3.4-5.0); ALKALINE PHOSPHATASE 93 Units/L (46-116); ASPARTATE AMINO TRANSFERASE 19 Units/L (15-37); BLOOD UREA NITROGEN 5 mg/dL (7-18); CALCIUM 8.5 mg/dL (8.5-10.1); CARBON DIOXIDE 31.9 mmol/L (21-32); CHLORIDE 106 mmol/L (98-107); COR CA(FOR HYPOALB) 9.8 mg/dL (8.5-10.1); COR NA(FOR HYPERGLY) 142 mmol/L (136-145); CREATININE 0.84 mg/dL (0.70-1.30); SODIUM 142 mmol/L (136-145); TOTAL PROTEIN 5.2 g/dL (6.4-8.2); eGFR NON BLACK RACES > 60 (>60)
[2019-03-08] MEDS: K-RIDER 10 MEQ/NS 100 ML 10 MEQ/100 ML BAG IV PRN ×4 (07:41→11:02)
[2019-03-08] MEDS: CARAFATE PO SCH ×4 (08:50→22:03)
[2019-03-08] MEDS: REGLAN TAB 10 MG PO SCH ×4 (08:50→22:03)
[2019-03-08] MEDS: PAXIL PO SCH (08:50)
[2019-03-08] MEDS ORDERED: PHARMACY CONSULT - TPN XX SCH (10:00)
--- NOTE | 2019-03-08 11:49 | DR.PROGNOT ---
Hospital Progress Notes - Progress Note for Day of: Progress Note Date: 03/08/19 - Chief Complaint Chief Complaint: S/P EGD and dilation of G-J stricture . tolerating liquid diet , no vomiting . less abdominal pain . - Past Medical Family Social History Past Med/Fam/Surg Hx: No changes since H&P Allergies: Allergies levofloxacin [From Levaquin] Allergy (Verified 01/29/18 13:44) penicillin G Allergy (Verified 09/14/17 17:05) morphine Adverse Reaction (Verified 03/29/17 14:20) - Review Of Systems ROS: No change since H&P - Vital Signs Vital Signs: Temperature 98.1 F Pulse Rate [Right Brachial] 78 Pulse Rate 73 Respiratory Rate 20 Blood Pressure [Left Arm] 93/64 Blood Pressure [Right Arm] 94/54 Blood Pressure 134/75 O2 Sat by Pulse Oximetry 96 - Physical Exam Oriented: Normal Eyes: Normal Ear: Normal Nose: Normal Throat: Normal Respiratory: Diminished Cardiovascular: Normal : Normal GI:Auscultation: Normal GI:Palpation: Normal GI: Tenderness: LUQ, Periumbilical Skin: Decreased Turgur Musculoskeletal: Instability Psychiatric: Normal Mood Description: Calm Affect: Normal Speech Pattern: Clear, Appropriate - Laboratory and Diagnostics Result Diagrams: 03/08/19 05:55 03/08/19 05:55 Labs: 03/05/19 22:00 Abdomen Gram Stain - Final 03/05/19 22:00 Abdomen Wound Culture - Preliminary 03/05/19 18:13 Blood Blood Culture - Preliminary 03/05/19 18:00 Blood Blood Culture - Preliminary Laboratory WBC 3.5 X10^3/uL (3.6-10.0) L 03/08/19 05:55 RBC 3.83 X10^6/uL (4.7-6.0) L 03/08/19 05:55 Hgb 11.3 g/dL (13.5-18.0) L 03/08/19 05:55 Hct 32.0 % (42.0-54.0) L 03/08/19 05:55 MCV 83.7 fL (80.0-100.0) 03/08/19 05:55 MCH 29.5 pg (27.0-34.0) 03/08/19 05:55 MCHC 35.3 g/dL (33.0-35.0) H 03/08/19 05:55 RDW 13.6 % (11.6-16.5) 03/08/19 05:55 Plt Count 95 X10^3/uL (150.0-450.0) L 03/08/19 05:55 MPV 9.3 fL (7.4-11.0) 03/08/19 05:55 Neut % (Auto) 60.0 % (42.0-75.0) 03/08/19 05:55 Lymph % (Auto) 26.8 % (21.0-51.0) 03/08/19 05:55 [place] % (Auto) 9.6 % (0.0-13.0) 03/08/19 05:55 Eos % (Auto) 2.9 % (0.9-2.9) 03/08/19 05:55 Baso % (Auto) 0.7 % (0.2-1.0) 03/08/19 05:55 Neut # (Auto) 2.1 x10^3/uL (2.2-4.8) L 03/08/19 05:55 Lymph # (Auto) 0.9 X10^3/uL (1.3-2.9) L 03/08/19 05:55 [place] # (Auto) 0.3 x10^3/uL (0.3-0.8) 03/08/19 05:55 Eos # (Auto) 0.1 x10^3/uL (0.0-0.2) 03/08/19 05:55 Baso # (Auto) 0.0 X10^3/uL (0.0-0.1) 03/08/19 05:55 Absolute Nucleated RBC 0.1 /100WBC 03/08/19 05:55 Sodium 142 mmol/L (136-145) 03/08/19 05:55 Corrected Sodium 142 mmol/L (136-145) 03/08/19 05:55 Potassium 2.9 mmol/L (3.5-5.1) L* 03/08/19 05:55 Chloride 106 mmol/L (98-107) 03/08/19 05:55 Carbon Dioxide 31.9 mmol/L (21-32) 03/08/19 05:55 BUN 5 mg/dL (7-18) L 03/08/19 05:55 Creatinine 0.84 mg/dL (0.70-1.30) 03/08/19 05:55 Est GFR (MDRD) Af Amer > 60 (>60) 03/08/19 05:55 Est GFR (MDRD) Non-Af > 60 (>60) 03/08/19 05:55 Glucose 120 mg/dL (65-99) H 03/08/19 05:55 Calcium 8.5 mg/dL (8.5-10.1) 03/08/19 05:55 Corrected Calcium 9.8 mg/dL (8.5-10.1) 03/08/19 05:55 Magnesium 1.4 mg/dL (1.7-2.9) L 03/08/19 05:55 Total Bilirubin 0.20 mg/dL (0.2-1.0) 03/08/19 05:55 AST 19 Units/L (15-37) 03/08/19 05:55 ALT 16 Units/L (12-78) 03/08/19 05:55 Alkaline Phosphatase 93 Units/L (46-116) 03/08/19 05:55 Creatine Kinase 68 Units/L (39-308) 03/06/19 05:45 CK-MB (CK-2) < 1.0 ng/mL (0-4.0) 03/06/19 05:45 CK/CKMB % Calc 1.5 % (<4) 03/06/19 05:45 Troponin I < 0.02 ng/mL (0-1.5) 03/06/19 05:45 Total Protein 5.2 g/dL (6.4-8.2) L 03/08/19 05:55 Albumin 2.4 g/dL (3.4-5.0) L 03/08/19 05:55 Globulin 2.8 g/dL (2.5-4.5) 03/08/19 05:55 Albumin/Globulin Ratio 0.9 Ratio (1.1-2.1) L 03/08/19 05:55 Prealbumin 14.7 mg/dL (18-35.7) L 03/08/19 05:55 Specimen Type Clean catch urine 03/06/19 02:04 Urine Color Shanda (YELLOW) 03/06/19 02:04 Urine Appearance Clear (CLEAR) 03/06/19 02:04 Urine pH 6.0 (5.0 - 8.0) 03/06/19 02:04 Ur Specific [place] 1.020 (1.000-1.030) 03/06/19 02:04 Urine Protein 2+ (NEGATIVE) 03/06/19 02:04 Urine Glucose (UA) Negative (NEGATIVE) 03/06/19 02:04 Urine Ketones Negative (NEGATIVE) 03/06/19 02:04 Urine Occult Blood Negative (NEGATIVE) 03/06/19 02:04 Urine Nitrite Negative (NEGATIVE) 03/06/19 02:04 Urine Bilirubin Negative (NEGATIVE) 03/06/19 02:04 Urine Urobilinogen Normal (NORMAL) 03/06/19 02:04 Ur Leukocyte Esterase Negative (NEGATIVE) 03/06/19 02:04 Urine RBC 0-2 /HPF (NONE SEEN) 03/06/19 02:04 Urine WBC 3-5 /HPF (NONE SEEN) 03/06/19 02:04 Ur Squamous Epith Cells Negative /HPF (NEGATIVE) 03/06/19 02:04 Calcium Oxalate Crystal Moderate /HPF (NEGATIVE) 03/06/19 02:04 Amorphous Sediment Trace /HPF (NEGATIVE) 03/06/19 02:04 Urine Bacteria Negative /HPF (NEGATIVE) 03/06/19 02:04 Hyaline Casts Rare /LPF (NEGATIVE) 03/06/19 02:04 Urine Mucus Numerous /HPF (NEGATIVE) 03/06/19 02:04 Ur Culture Indicated? No/not indicated 03/06/19 02:04 Tissue Pathology To follow 03/07/19 16:25 - Assessment and Plan 1: stricture of gastrojejunostomy ( s/p gastric bypass ). had EGD and dilation with good results . to place on full liquid , maybe add Ensure daily . - Problem Patient Problems: Patient Problems Dehydration (Acute) E86.0 Generalized weakness (Acute) R53.1 Protein-calorie malnutrition, moderate (Acute) E44.0 GERD (gastroesophageal reflux disease) (Acute) K21.9
[2019-03-08] MEDS: CLINIMIX 5 %/20 % 1,000 ML with MVI INJ (ADULT) 10 ML, TRACE ELEMENTS INJ 10 ML, TPN EL... IV SCH ×8 (12:33→23:02)
[2019-03-08] MEDS ORDERED: STERILE WATER IRRIGATION ONE (13:03)
[2019-03-08] MEDS ORDERED: HumuLIN R SUBCUT PRN (13:14)
[2019-03-08] MEDS: VANCOMYCIN HCL 1 GM VIAL 1 G in D5W 250 ML IV 250 ML IV SCH (17:23)
--- NOTE | 2019-03-08 17:23 | PCM.PROG ---
Progress Note - Progress Note for Day of Date of Exam: 03/08/19 - Subjective Subjective: The patient is a 43-year-old white male who was admitted from Dr. Chana Russell office with a diagnosis of dehydration, generalized weakness, and states that he has not been able to eat in 3 weeks and has lost approximately 25-30 pounds. The patient also reports that he had a PEG tube that was pulled out three weeks ago and continues to be an open wound without healing. A gram stain was obtained on admission and is +Gram +cocci, started on Vancomycin. Pt had picc line placed for peripheral nutrition with TPN. Dr Alexis consulted for GI evaluation with EGD. Pt refused feeding tube placement at this time. K+ 2.9, currently on potassium replacement - Past Medical Family Social History Past Med/Fam/Surg Hx: No changes since H&P Allergies: Allergies levofloxacin [From Levaquin] Allergy (Verified 01/29/18 13:44) penicillin G Allergy (Verified 09/14/17 17:05) morphine Adverse Reaction (Verified 03/29/17 14:20) - Review of Systems ROS: No change since H&P - Vital Signs and I&O's Vital Signs: Temperature 98.9 F Pulse Rate [Right Brachial] 66 Pulse Rate 73 Respiratory Rate 18 Blood Pressure [Left Arm] 103/67 Blood Pressure [Right Arm] 94/54 Blood Pressure 134/75 O2 Sat by Pulse Oximetry 94 Intake and Output: Intake & Output 03/06/19 03/07/19 03/08/19 03/09/19 11:59 11:59 11:59 11:59 Intake Total 580 / 580 1721 / 1721 2590 / 2590 460 / 460 Output Total 125 / 125 100 / 100 350 / 350 Balance 455 / 455 1621 / 1621 2240 / 2240 460 / 460 - Physical Exam Oriented: Normal Eyes: Normal Ear: Normal Nose: Normal Throat: Normal Respiratory: Diminished Cardiovascular: Normal : Normal Auscultation: Bowel Sounds: Normal Tenderness: LUQ, Periumbilical Skin: Decreased Turgur Musculoskeletal: Instability Psychiatric: Normal Mood Description: Calm Affect: Normal Speech Pattern: Clear, Appropriate - Laboratory and Diagnostics Result Diagrams: 03/08/19 05:55 03/08/19 14:19 Labs: 03/05/19 22:00 Abdomen Gram Stain - Final 03/05/19 22:00 Abdomen Wound Culture - Preliminary 03/05/19 18:13 Blood Blood Culture - Preliminary 03/05/19 18:00 Blood Blood Culture - Preliminary Laboratory WBC 3.5 X10^3/uL (3.6-10.0) L 03/08/19 05:55 RBC 3.83 X10^6/uL (4.7-6.0) L 03/08/19 05:55 Hgb 11.3 g/dL (13.5-18.0) L 03/08/19 05:55 Hct 32.0 % (42.0-54.0) L 03/08/19 05:55 MCV 83.7 fL (80.0-100.0) 03/08/19 05:55 MCH 29.5 pg (27.0-34.0) 03/08/19 05:55 MCHC 35.3 g/dL (33.0-35.0) H 03/08/19 05:55 RDW 13.6 % (11.6-16.5) 03/08/19 05:55 Plt Count 95 X10^3/uL (150.0-450.0) L 03/08/19 05:55 MPV 9.3 fL (7.4-11.0) 03/08/19 05:55 Neut % (Auto) 60.0 % (42.0-75.0) 03/08/19 05:55 Lymph % (Auto) 26.8 % (21.0-51.0) 03/08/19 05:55 [place] % (Auto) 9.6 % (0.0-13.0) 03/08/19 05:55 Eos % (Auto) 2.9 % (0.9-2.9) 03/08/19 05:55 Baso % (Auto) 0.7 % (0.2-1.0) 03/08/19 05:55 Neut # (Auto) 2.1 x10^3/uL (2.2-4.8) L 03/08/19 05:55 Lymph # (Auto) 0.9 X10^3/uL (1.3-2.9) L 03/08/19 05:55 [place] # (Auto) 0.3 x10^3/uL (0.3-0.8) 03/08/19 05:55 Eos # (Auto) 0.1 x10^3/uL (0.0-0.2) 03/08/19 05:55 Baso # (Auto) 0.0 X10^3/uL (0.0-0.1) 03/08/19 05:55 Absolute Nucleated RBC 0.1 /100WBC 03/08/19 05:55 Sodium 142 mmol/L (136-145) 03/08/19 05:55 Corrected Sodium 142 mmol/L (136-145) 03/08/19 05:55 Potassium 3.5 mmol/L (3.5-5.1) 03/08/19 14:19 Chloride 106 mmol/L (98-107) 03/08/19 05:55 Carbon Dioxide 31.9 mmol/L (21-32) 03/08/19 05:55 BUN 5 mg/dL (7-18) L 03/08/19 05:55 Creatinine 0.84 mg/dL (0.70-1.30) 03/08/19 05:55 Est GFR (MDRD) Af Amer > 60 (>60) 03/08/19 05:55 Est GFR (MDRD) Non-Af > 60 (>60) 03/08/19 05:55 Glucose 120 mg/dL (65-99) H 03/08/19 05:55 Calcium 8.5 mg/dL (8.5-10.1) 03/08/19 05:55 Corrected Calcium 9.8 mg/dL (8.5-10.1) 03/08/19 05:55 Magnesium 1.4 mg/dL (1.7-2.9) L 03/08/19 05:55 Total Bilirubin 0.20 mg/dL (0.2-1.0) 03/08/19 05:55 AST 19 Units/L (15-37) 03/08/19 05:55 ALT 16 Units/L (12-78) 03/08/19 05:55 Alkaline Phosphatase 93 Units/L (46-116) 03/08/19 05:55 Creatine Kinase 68 Units/L (39-308) 03/06/19 05:45 CK-MB (CK-2) < 1.0 ng/mL (0-4.0) 03/06/19 05:45 CK/CKMB % Calc 1.5 % (<4) 03/06/19 05:45 Troponin I < 0.02 ng/mL (0-1.5) 03/06/19 05:45 Total Protein 5.2 g/dL (6.4-8.2) L 03/08/19 05:55 Albumin 2.4 g/dL (3.4-5.0) L 03/08/19 05:55 Globulin 2.8 g/dL (2.5-4.5) 03/08/19 05:55 Albumin/Globulin Ratio 0.9 Ratio (1.1-2.1) L 03/08/19 05:55 Prealbumin 14.7 mg/dL (18-35.7) L 03/08/19 05:55 Specimen Type Clean catch urine 03/06/19 02:04 Urine Color Shanda (YELLOW) 03/06/19 02:04 Urine Appearance Clear (CLEAR) 03/06/19 02:04 Urine pH 6.0 (5.0 - 8.0) 03/06/19 02:04 Ur Specific [place] 1.020 (1.000-1.030) 03/06/19 02:04 Urine Protein 2+ (NEGATIVE) 03/06/19 02:04 Urine Glucose (UA) Negative (NEGATIVE) 03/06/19 02:04 Urine Ketones Negative (NEGATIVE) 03/06/19 02:04 Urine Occult Blood Negative (NEGATIVE) 03/06/19 02:04 Urine Nitrite Negative (NEGATIVE) 03/06/19 02:04 Urine Bilirubin Negative (NEGATIVE) 03/06/19 02:04 Urine Urobilinogen Normal (NORMAL) 03/06/19 02:04 Ur Leukocyte Esterase Negative (NEGATIVE) 03/06/19 02:04 Urine RBC 0-2 /HPF (NONE SEEN) 03/06/19 02:04 Urine WBC 3-5 /HPF (NONE SEEN) 03/06/19 02:04 Ur Squamous Epith Cells Negative /HPF (NEGATIVE) 03/06/19 02:04 Calcium Oxalate Crystal Moderate /HPF (NEGATIVE) 03/06/19 02:04 Amorphous Sediment Trace /HPF (NEGATIVE) 03/06/19 02:04 Urine Bacteria Negative /HPF (NEGATIVE) 03/06/19 02:04 Hyaline Casts Rare /LPF (NEGATIVE) 03/06/19 02:04 Urine Mucus Numerous /HPF (NEGATIVE) 03/06/19 02:04 Ur Culture Indicated? No/not indicated 03/06/19 02:04 Tissue Pathology To follow 03/07/19 16:25 - Plan (1) Abdominal pain Status: Acute Qualifiers: Abdominal location: periumbilical Qualified Code(s): R10.33 - Periumbilical pain Plan: iv hydration, pain and nausea control. GI consult, PPI therapy, reglan ac and hs. CT abd pelvis without acute findings (2) GERD (gastroesophageal reflux disease) Status: Acute (3) Protein-calorie malnutrition, moderate Status: Acute Plan: picc line placement with TPN (4) Hypokalemia Status: Acute (5) Nausea and vomiting Status: Acute
[2019-03-08] MEDS: DUONEB 0.5 MG/3 MG NEB SCH (20:58)
[2019-03-08] MEDS: SEROquel TAB 100 MG PO SCH (22:04)
[2019-03-09] MEDS: CLINIMIX 5 %/20 % 1,000 ML with MVI INJ (ADULT) 10 ML, TRACE ELEMENTS INJ 10 ML, TPN EL... IV SCH ×8 (00:45→12:47)
[2019-03-09 06:04] LABS: BASOPHILS % (AUTO) 0.7 % (0.2-1.0); EOSINOPHILS # (AUTO) 0.1 x10^3/uL (0.0-0.2); EOSINOPHILS % (AUTO) 2.9 % (0.9-2.9); HEMATOCRIT 29.9 % (42.0-54.0); HEMOGLOBIN 10.6 g/dL (13.5-18.0); LYMPHOCYTES # (AUTO) 1.2 X10^3/uL (1.3-2.9); MEAN CORPUSCULAR HEMOGLOBIN 29.7 pg (27.0-34.0); MEAN CORPUSCULAR HGB CONC 35.4 g/dL (33.0-35.0); MEAN CORPUSCULAR VOLUME 83.9 fL (80.0-100.0); MEAN PLATELET VOLUME 9.4 fL (7.4-11.0); MONOCYTES # (AUTO) 0.3 x10^3/uL (0.3-0.8); MONOCYTES % (AUTO) 10.2 % (0.0-13.0); NEUTROPHILS # (AUTO) 1.3 x10^3/uL (2.2-4.8); NEUTROPHILS % (AUTO) 45.2 % (42.0-75.0); PLATELET COUNT 86 X10^3/uL (150.0-450.0); RED BLOOD COUNT 3.57 X10^6/uL (4.7-6.0); RED CELL DISTRIBUTION WIDTH 13.6 % (11.6-16.5); WHITE BLOOD COUNT 2.9 X10^3/uL (3.6-10.0)
[2019-03-09 06:13] LABS: ALANINE AMINOTRANSFERASE 20 Units/L (12-78); ALBUMIN 2.3 g/dL (3.4-5.0); ALKALINE PHOSPHATASE 84 Units/L (46-116); ASPARTATE AMINO TRANSFERASE 19 Units/L (15-37); BLOOD UREA NITROGEN 9 mg/dL (7-18); CALCIUM 8.3 mg/dL (8.5-10.1); CARBON DIOXIDE 32.8 mmol/L (21-32); CHLORIDE 107 mmol/L (98-107); COR CA(FOR HYPOALB) 9.7 mg/dL (8.5-10.1); COR NA(FOR HYPERGLY) 142 mmol/L (136-145); CREATININE 0.72 mg/dL (0.70-1.30); MAGNESIUM 1.4 mg/dL (1.7-2.9); PHOSPHORUS 2.9 mg/dL (2.6-4.7); SODIUM 142 mmol/L (136-145); TRIGLYCERIDES 25 mg/dL (0-150); eGFR NON BLACK RACES > 60 (>60)
[2019-03-09 06:23] LABS: PREALBUMIN 13.6 mg/dL (18-35.7)
[2019-03-09] MEDS: DUONEB 0.5 MG/3 MG NEB SCH (08:28)
[2019-03-09] MEDS: CARAFATE PO SCH ×2 (09:18→12:51)
[2019-03-09] MEDS: VANCOMYCIN HCL 1 GM VIAL 1 G in D5W 250 ML IV 250 ML IV SCH (09:18)
[2019-03-09] MEDS: REGLAN TAB 10 MG PO SCH ×2 (09:18→12:52)
[2019-03-09] MEDS: PAXIL PO SCH (09:18)
[2019-03-09] MEDS: ROXICODONE TAB 5 MG PO PRN (09:19)
--- NOTE | 2019-03-09 09:23 | RAD ---
HISTORY: Constipation Study: Flat and upright abdomen, AP chest Comparison: 03/07/2019 chest x-ray CT abdomen pelvis 03/06/2019 Findings: The heart is within normal limits in size. The [place] are normal. The lung nielson are clear. No pleural effusions are identified. The patient is status post median sternotomy. There is a right-sided PICC line with its tip in the superior vena cava. The abdominal gas pattern is nonspecific and nonobstructive. No pneumoperitoneum is identified. There is a moderately large amount of stool throughout the colon suggestive of possible constipation. No abnormal masses or abnormal calcifications are identified. IMPRESSION: Lungs clear Possible constipation Reported By:
[2019-03-09] MEDS: NS 1/2 1000 ML IV 1,000 ML IV SCH (10:49)
[2019-03-09] MEDS ORDERED: MAG-OX TAB PO NR (12:00)
[2019-03-09 12:14] VITALS: BP 105/51
[2019-03-09] MEDS ORDERED: MILK OF MAGNESIA PO SCH (14:00)
[2019-03-10] MEDS ORDERED: PHARMACY COMMENT IV NR (08:30)
== END 2019-03-09 14:25 | disposition home health service (06) | DRG 641 ==
LOC: MED/SURG
PROVIDERS: ADMIT Internal Medicine; ATTEND Internal Medicine
DX: R53.1 Weakness; K21.9 Gastro-esophageal reflux disease without esophagitis; K95.89 Other complications of other bariatric procedure; R10.33 Periumbilical pain; R11.2 Nausea with vomiting, unspecified; B95.62 Methicillin resistant Staphylococcus aureus infection as the cause of diseases classified elsewhere; E86.0 Dehydration; K91.2 Postsurgical malabsorption, not elsewhere classified; Z98.0 Intestinal bypass and anastomosis status; K94.23 Gastrostomy malfunction; S31.100A Unspecified open wound of abdominal wall, right upper quadrant without penetration into peritoneal cavity, initial encounter; Z98.84 Bariatric surgery status; E44.0 Moderate protein-calorie malnutrition
CPT/HCPCS: 36415; 36569; 71010; 71045; 74022; 74177; 80053; 81001; 82550; 82553; 82607; 82728; 82746; 83540; 83735; 84100; 84132; 84134; 84466; 84478; 84484; 85025; 87040; 87070; 87075; 87077; 87186; 87205; 93005; 94640; 94760; A4216; A4217; A4222; B5200; G0378; J1642; J2550; J2704; J3370; J3475; J3480; J7030; J7060; J7620; S0119; S0181

== ENCOUNTER 2019-08-01 14:03 | Inpatient (IN) ==
[2019-08-01] MEDS ORDERED: NS 1000 ML 1,000 ML ONE ×3 (14:31→19:25)
--- NOTE | 2019-08-01 14:40 | DR.GIBLEED ---
HPI Time Seen Time Seen by Provider: 08/01/19 14:35 Primary Care Physician Primary Care Physician: PRABHAKAR OCONNELL HPI Comment HPI Comment: PATIENT IS 43YR OLD WHITE MALE IN THE ER WITH HISTORY OF PASSING OUT THIS AM AND IS VOMITING DARK BLOOD. Complaints Chief Complaint Doctors Comments: PASSED OUT THIS AM. VOMITING DARK BLOOD. Chief Complaint:: PT C/O PASSED OUT THIS AM AND C/O THROWING UP DARK BLOOD ,BR Self Treatment fo Chief Complaint: PT IS PALE , Reviewed Nurses Notes Reviewed: Yes Source History Provided: Patient Mode of Arrival Mode of Arrival: Wheelchair Timing Onset of Chief Complaint: 08/01/19 Duration Bleeding: Currently Present Duration: Hours Quality Vomitus: Bright Red Blood History Of: None Prehospital Care:: None Severity Severity: Moderate Context Onset: Spontaneous Recent Use Of: None PMH PMH Past Medical History: No Past Medical History: Depression Past Surgical History: Yes Surgical History: No History, Cholecystectomy and Weight Loss Surgery Family History History of Family Medical Conditions: Yes Family Medical History: Diabetes Mellitus, Cancer and Hypertension Social History Does patient currently use any type of tobacco product: No Have you used tobacco products in the last 12 months: No Type of Tobacco Use: None Does any household member use tobacco: No Alcohol Use: None Do you use any recreational Drugs:: No Lives With: Family Lives Where: Home infectious screening In the last 2 months have you had wt loss of >10#?: NO Have you had fever, night sweats or hemotysis?: No Have you traveled outside the country in the last 6 months?: No Isolation: Standard ROS Review of Systems Constitutional: No Symptoms Reported and See HPI Eyes: No Symptoms Reported and See HPI ENTM: No Symptoms Reported and See HPI Respiratoy: No Symptoms Reported and See HPI Cardiovascular: No Symptoms Reported and See HPI Gastrointestinal/Abdominal: No Symptoms Reported and See HPI Genitourinary: No Symptoms Reported and See HPI Neurological: No Symptoms Reported and See HPI Musculoskeletal: No Symptoms Reported and See HPI Integumentary: No Symptoms Reported and See HPI Hematologic/Lymphatic: No Symptoms Reported and See HPI Endocrine: No Symptoms Reported and See HPI Psychiatric: No Symptoms Reported and See HPI All Other Systems: Reviewed and Negative PE Vital Signs Vitals: Temperature 98.8 F Pulse Rate 73 Respiratory Rate 20 Blood Pressure [Left Arm] 105/51 Blood Pressure 110/70 O2 Sat by Pulse Oximetry 100 General Limitations: No Limitations General Appearance: Alert and In No Apparent Distress Head Head Exam: Normal Inspection Eyes Eye exam: Normal Appearance ENT ENT Exam: Normal Exam Neck Neck Exam: Normal Inspection Chest Chest Inspection: Normal Inspection Respiratory Respiratory Exam: Normal Lung Sounds Bilat Respiratory Exam: Bilateral: Clear to Auscultation Cardiovascular Cardiovascular Exam: Regular Rate and Normal Rhythm Abdominal Exam Abdominal Exam: Normal Inspection, Normal Bowel Sounds and Soft Rectal Rectal Exam: Deferred Extremities Extremities Exam: Normal Inspection Back Back Exam: Normal Inspection Neurologic Neurological Exam: Alert and Oriented X3 Psychiatric Psychiatric Exam: Normal Affect and Normal Mood Skin Skin Exam: Warm, Dry, Intact and Normal Color ROR Labs Reviewed Result Diagrams: 08/01/19 14:36 08/01/19 14:36 Laboratory: WBC 9.2 X10^3/uL (3.6-10.0) 08/01/19 14:36 RBC 4.01 X10^6/uL (4.7-6.0) L 08/01/19 14:36 Hgb 10.7 g/dL (13.5-18.0) L 08/01/19 14:36 Hct 32.1 % (42.0-54.0) L 08/01/19 14:36 MCV 80.1 fL (80.0-100.0) 08/01/19 14:36 MCH 26.6 pg (27.0-34.0) L 08/01/19 14:36 MCHC 33.2 g/dL (33.0-35.0) 08/01/19 14:36 RDW 15.0 % (11.6-16.5) 08/01/19 14:36 Plt Count 252 X10^3/uL (150.0-450.0) 08/01/19 14:36 MPV 8.6 fL (7.4-11.0) 08/01/19 14:36 Neut % (Auto) 84.6 % (42.0-75.0) H 08/01/19 14:36 Lymph % (Auto) 6.9 % (21.0-51.0) L 08/01/19 14:36 [place] % (Auto) 6.8 % (0.0-13.0) 08/01/19 14:36 Eos % (Auto) 1.1 % (0.9-2.9) 08/01/19 14:36 Baso % (Auto) 0.6 % (0.2-1.0) 08/01/19 14:36 Neut # (Auto) 7.8 x10^3/uL (2.2-4.8) H 08/01/19 14:36 Lymph # (Auto) 0.6 X10^3/uL (1.3-2.9) L 08/01/19 14:36 [place] # (Auto) 0.6 x10^3/uL (0.3-0.8) 08/01/19 14:36 Eos # (Auto) 0.1 x10^3/uL (0.0-0.2) 08/01/19 14:36 Baso # (Auto) 0.1 X10^3/uL (0.0-0.1) 08/01/19 14:36 Absolute Nucleated RBC 0.0 /100WBC 08/01/19 14:36 APTT 43.4 SECONDS (22.9-36.5) H 08/01/19 14:36 PTT Comment - 08/01/19 14:36 Sodium 137 mmol/L (136-145) 08/01/19 14:36 Corrected Sodium TNP 08/01/19 14:36 Potassium 3.2 mmol/L (3.5-5.1) L 08/01/19 14:36 Chloride 101 mmol/L (98-107) 08/01/19 14:36 Carbon Dioxide 27.7 mmol/L (21-32) 08/01/19 14:36 BUN 17 mg/dL (7-18) 08/01/19 14:36 Creatinine 0.95 mg/dL (0.70-1.30) 08/01/19 14:36 Est GFR (MDRD) Af Amer > 60 (>60) 08/01/19 14:36 Est GFR (MDRD) Non-Af > 60 (>60) 08/01/19 14:36 Glucose 110 mg/dL (65-99) H 08/01/19 14:36 Calcium 8.6 mg/dL (8.5-10.1) 08/01/19 14:36 Corrected Calcium 10.1 mg/dL (8.5-10.1) 08/01/19 14:36 Total Bilirubin 0.20 mg/dL (0.2-1.0) 08/01/19 14:36 AST 17 Units/L (15-37) 08/01/19 14:36 ALT 9 Units/L (12-78) L 08/01/19 14:36 Alkaline Phosphatase 131 Units/L (46-116) H 08/01/19 14:36 Total Protein 7.5 g/dL (6.4-8.2) 08/01/19 14:36 Albumin 2.1 g/dL (3.4-5.0) L 08/01/19 14:36 Globulin 5.4 g/dL (2.5-4.5) H 08/01/19 14:36 Albumin/Globulin Ratio 0.4 Ratio (1.1-2.1) L 08/01/19 14:36 Amylase 28 Units/L (25-115) 08/01/19 14:36 Lipase 61 Units/L (73-393) L 08/01/19 14:36 Stool Description Fob tube 08/01/19 15:05 Stl Occult Blood (IFOB) Positive (NEGATIVE) A 08/01/19 15:05 Blood Type O POSITIVE 08/01/19 14:48 Antibody Screen Negative 08/01/19 14:48 Opioid Opioid Risk Tool Age (Brayan box if 16-45): Yes History of Preadolescent Sexual Abuse: No Total: 1 Total Score Risk Category: Low Risk Copyright: Nic MANZANO predicting aberrant behaviors
[2019-08-01] MEDS ORDERED: NS 1000 ML 1,000 ML IV ONE ×2 (14:41→16:37)
[2019-08-01 14:59] LABS: BASOPHILS # (AUTO) 0.1 X10^3/uL (0.0-0.1); BASOPHILS % (AUTO) 0.6 % (0.2-1.0); EOSINOPHILS # (AUTO) 0.1 x10^3/uL (0.0-0.2); EOSINOPHILS % (AUTO) 1.1 % (0.9-2.9); HEMATOCRIT 32.1 % (42.0-54.0); HEMOGLOBIN 10.7 g/dL (13.5-18.0); LYMPHOCYTES # (AUTO) 0.6 X10^3/uL (1.3-2.9); LYMPHOCYTES % (AUTO) 6.9 % (21.0-51.0); MEAN CORPUSCULAR HEMOGLOBIN 26.6 pg (27.0-34.0); MEAN CORPUSCULAR HGB CONC 33.2 g/dL (33.0-35.0); MEAN CORPUSCULAR VOLUME 80.1 fL (80.0-100.0); MEAN PLATELET VOLUME 8.6 fL (7.4-11.0); MONOCYTES # (AUTO) 0.6 x10^3/uL (0.3-0.8); MONOCYTES % (AUTO) 6.8 % (0.0-13.0); NEUTROPHILS # (AUTO) 7.8 x10^3/uL (2.2-4.8); NEUTROPHILS % (AUTO) 84.6 % (42.0-75.0); PLATELET COUNT 252 X10^3/uL (150.0-450.0); RED BLOOD COUNT 4.01 X10^6/uL (4.7-6.0); WHITE BLOOD COUNT 9.2 X10^3/uL (3.6-10.0)
[2019-08-01 15:11] LABS: ALANINE AMINOTRANSFERASE 9 Units/L (12-78); ALBUMIN 2.1 g/dL (3.4-5.0); ALKALINE PHOSPHATASE 131 Units/L (46-116); AMYLASE 28 Units/L (25-115); ASPARTATE AMINO TRANSFERASE 17 Units/L (15-37); BLOOD UREA NITROGEN 17 mg/dL (7-18); CALCIUM 8.6 mg/dL (8.5-10.1); CARBON DIOXIDE 27.7 mmol/L (21-32); CHLORIDE 101 mmol/L (98-107); COR CA(FOR HYPOALB) 10.1 mg/dL (8.5-10.1); CREATININE 0.95 mg/dL (0.70-1.30); LIPASE 61 Units/L (73-393); SODIUM 137 mmol/L (136-145); TOTAL PROTEIN 7.5 g/dL (6.4-8.2); eGFR NON BLACK RACES > 60 (>60)
[2019-08-01] MEDS ORDERED: ZOFRAN INJ 4 MG VIAL IVP ONE (15:11)
[2019-08-01] MEDS ORDERED: ZOFRAN INJ 4 MG VIAL ONE (15:11)
[2019-08-01] MEDS ORDERED: PROTONIX INJ 40 MG VIAL ONE ×2 (16:20→16:21)
[2019-08-01] MEDS ORDERED: PHENERGAN INJ 25 MG IM ONE (16:20)
[2019-08-01] MEDS ORDERED: NS 100 ML IV 100 ML IV ONE (16:22)
[2019-08-01] MEDS: PROTONIX INJ 40 MG VIAL 80 MG in NS 100 ML IV 80 ML IV SCH (16:38)
[2019-08-01] MEDS: PHENERGAN INJ 25 MG IM PRN ×2 (16:38→21:57)
[2019-08-01] MEDS: NS 1000 ML 1,000 ML IV SCH ×2 (19:26→23:23)
--- NOTE | 2019-08-01 19:27 | CT ---
CT abdomen and pelvis without contrast Indication: Abdominal pain Technique: Helical CT images of the abdomen and pelvis were obtained without IV contrast. Reformatted images in the coronal and sagittal planes were also generated for review. Comparison: 03/06/2019 Findings: Imaged lung bases are clear. No acute osseous abnormality. Within limits of a noncontrast exam, the unenhanced liver and spleen are mildly enlarged without gross focal lesion. The gallbladder is absent. The pancreas, adrenals and kidneys are unremarkable. No urolithiasis or obstructive uropathy. Evaluation of the GI tract is limited without oral contrast. Accounting for this, prior postsurgical changes suggestive for previous gastric bypass noted. There is colonic diverticulosis without diverticulitis. The GI tract is otherwise without obstruction or gross inflammation. The appendix is normal. The abdominal aorta is normal in caliber. The partially collapsed urinary bladder is grossly normal without stones. The prostate is mildly prominent and centrally calcified. No free air, free fluid or bulky lymphadenopathy is identified. Impression: No acute abnormality identified within the limitations of an exam performed without intravenous or oral contrast. Hepatosplenomegaly, colonic diverticulosis without diverticulitis, prior postsurgical changes and additional findings as above. Reported By:
[2019-08-01] MEDS ORDERED: MORPHINE SULFATE INJ 2 MG INJ IVP PRN (20:05)
[2019-08-01] MEDS ORDERED: NS 1000 ML 1,000 ML IV SCH (22:00)
[2019-08-01] MEDS: DILAUDID INJ IVP PRN (22:26)
[2019-08-01] MEDS ORDERED: K-DUR TAB 20 MEQ PO PRN (23:52)
[2019-08-01] MEDS ORDERED: MICRO K EXTEN CAP 10 MEQ PO PRN (23:52)
[2019-08-01] MEDS ORDERED: POTASSIUM CHL 60 MEQ/NS 0.45% 500 ML IV PRN (23:52)
[2019-08-01] MEDS ORDERED: POTASSIUM CHLORIDE LIQ 20 MEQ UDC PO PRN (23:52)
[2019-08-01] MEDS ORDERED: POTASSIUM CHL 40 MEQ/NS 0.45% 500 ML IV PRN (23:52)
[2019-08-02] MEDS ORDERED: K-RIDER 10 MEQ/NS 100 ML 40 MEQ/400 ML BAG IV ONE
[2019-08-02] MEDS: K-RIDER 10 MEQ/NS 100 ML 10 MEQ/100 ML BAG IV PRN ×7 (00:15→14:00)
[2019-08-02 01:37] VITALS: BMI 19.9
[2019-08-02] MEDS: PROTONIX INJ 40 MG VIAL 80 MG in NS 100 ML IV 80 ML IV SCH ×3 (02:22→14:10)
[2019-08-02 02:23] LABS: BILIRUBIN,URINE NEGATIVE (NEGATIVE); BLOOD/HEMOGLOBIN,URINE 1+ (NEGATIVE); GLUCOSE, URINE NEGATIVE (NEGATIVE); KETONES,URINE NEGATIVE (NEGATIVE); LEUKOCYTE ESTERASE ,URINE 2+ (NEGATIVE); NITRITES,URINE NEGATIVE (NEGATIVE); PROTEIN,URINE 2+ (NEGATIVE); UROBILINOGEN,URINE 1+ (NORMAL)
[2019-08-02] MEDS: DILAUDID INJ IVP PRN ×6 (02:33→22:10)
[2019-08-02] MEDS: PHENERGAN INJ 25 MG IM PRN ×4 (02:34→21:35)
[2019-08-02 02:37] LABS: APPEARANCE,URINE CLEAR (CLEAR); BACTERIA,URINE NEGATIVE /HPF (NEGATIVE); COLOR,URINE YELLOW (YELLOW); SQUAMOUS EPITHELIAL CELL,UR RARE /HPF (NEGATIVE)
[2019-08-02] MEDS: NS 1000 ML 1,000 ML IV SCH ×2 (03:35→14:10)
[2019-08-02 06:12] LABS: BASOPHILS % (AUTO) 0.4 % (0.2-1.0); EOSINOPHILS # (AUTO) 0.1 x10^3/uL (0.0-0.2); EOSINOPHILS % (AUTO) 1.6 % (0.9-2.9); HEMATOCRIT 32.6 % (42.0-54.0); HEMOGLOBIN 10.8 g/dL (13.5-18.0); LYMPHOCYTES # (AUTO) 0.7 X10^3/uL (1.3-2.9); LYMPHOCYTES % (AUTO) 12.4 % (21.0-51.0); MEAN CORPUSCULAR HEMOGLOBIN 26.7 pg (27.0-34.0); MEAN CORPUSCULAR VOLUME 80.9 fL (80.0-100.0); MEAN PLATELET VOLUME 8.2 fL (7.4-11.0); MONOCYTES # (AUTO) 0.4 x10^3/uL (0.3-0.8); MONOCYTES % (AUTO) 7.7 % (0.0-13.0); NEUTROPHILS # (AUTO) 4.5 x10^3/uL (2.2-4.8); NEUTROPHILS % (AUTO) 77.9 % (42.0-75.0); PLATELET COUNT 236 X10^3/uL (150.0-450.0); RED BLOOD COUNT 4.03 X10^6/uL (4.7-6.0); RED CELL DISTRIBUTION WIDTH 14.9 % (11.6-16.5); WHITE BLOOD COUNT 5.8 X10^3/uL (3.6-10.0)
[2019-08-02] MEDS: TYLENOL 325 MG TAB PO PRN ×3 (06:14→18:04)
[2019-08-02 06:19] LABS: ALANINE AMINOTRANSFERASE 11 Units/L (12-78); ALKALINE PHOSPHATASE 119 Units/L (46-116); ASPARTATE AMINO TRANSFERASE 23 Units/L (15-37); BLOOD UREA NITROGEN 10 mg/dL (7-18); CALCIUM 8.5 mg/dL (8.5-10.1); CARBON DIOXIDE 27.9 mmol/L (21-32); CHLORIDE 104 mmol/L (98-107); COR CA(FOR HYPOALB) 10.1 mg/dL (8.5-10.1); CREATININE 0.87 mg/dL (0.70-1.30); LIPASE 56 Units/L (73-393); SODIUM 138 mmol/L (136-145); TOTAL PROTEIN 7.1 g/dL (6.4-8.2); eGFR NON BLACK RACES > 60 (>60)
[2019-08-02] MEDS: MAGNESIUM SULFATE 1 GRAM/100 mL PREMIX 1 GM/100 ML BAG IV PRN ×4 (06:29→10:05)
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
[2019-08-02] MEDS ORDERED: DILAUDID INJ ONE (13:52)
[2019-08-02] MEDS ORDERED: XANAX PO PRN (15:51)
[2019-08-03] MEDS: PROTONIX INJ 40 MG VIAL 80 MG in NS 100 ML IV 80 ML IV SCH ×3 (01:49→23:16)
[2019-08-03] MEDS: NS 1000 ML 1,000 ML IV SCH ×3 (03:40→20:21)
[2019-08-03] MEDS: DILAUDID INJ IVP PRN ×5 (04:10→23:00)
[2019-08-03 05:05] LABS: BASOPHILS % (AUTO) 0.6 % (0.2-1.0); EOSINOPHILS # (AUTO) 0.1 x10^3/uL (0.0-0.2); EOSINOPHILS % (AUTO) 1.3 % (0.9-2.9); HEMATOCRIT 26.4 % (42.0-54.0); LYMPHOCYTES # (AUTO) 0.6 X10^3/uL (1.3-2.9); LYMPHOCYTES % (AUTO) 11.5 % (21.0-51.0); MEAN CORPUSCULAR HEMOGLOBIN 26.9 pg (27.0-34.0); MEAN CORPUSCULAR HGB CONC 33.4 g/dL (33.0-35.0); MEAN CORPUSCULAR VOLUME 80.6 fL (80.0-100.0); MONOCYTES # (AUTO) 0.5 x10^3/uL (0.3-0.8); MONOCYTES % (AUTO) 9.9 % (0.0-13.0); NEUTROPHILS % (AUTO) 76.7 % (42.0-75.0); PLATELET COUNT 186 X10^3/uL (150.0-450.0); RED BLOOD COUNT 3.28 X10^6/uL (4.7-6.0); RED CELL DISTRIBUTION WIDTH 14.7 % (11.6-16.5); WHITE BLOOD COUNT 5.2 X10^3/uL (3.6-10.0)
[2019-08-03 05:12] LABS: HEMOGLOBIN 8.8 g/dL (13.5-18.0)
[2019-08-03 05:18] LABS: ALANINE AMINOTRANSFERASE 8 Units/L (12-78); ALBUMIN 1.7 g/dL (3.4-5.0); ALKALINE PHOSPHATASE 97 Units/L (46-116); ASPARTATE AMINO TRANSFERASE 29 Units/L (15-37); BLOOD UREA NITROGEN 4 mg/dL (7-18); CALCIUM 7.6 mg/dL (8.5-10.1); CARBON DIOXIDE 27.6 mmol/L (21-32); CHLORIDE 103 mmol/L (98-107); COR CA(FOR HYPOALB) 9.4 mg/dL (8.5-10.1); CREATININE 0.71 mg/dL (0.70-1.30); MAGNESIUM 1.4 mg/dL (1.7-2.9); SODIUM 137 mmol/L (136-145); TOTAL PROTEIN 6.1 g/dL (6.4-8.2); eGFR NON BLACK RACES > 60 (>60)
--- NOTE | 2019-08-03 08:57 | PCM.PROG ---
Progress Note Progress Note for Day of Date of Exam: 08/03/19 Subjective Subjective: Patient seen at bedside, had a temp of 101.5 last night, afebrile this AM. Reports some SOB, currently on oxygen. He stated abdominal pain is slightly worse. No episodes of vomiting, diarrhea or melena. Seen by Dr. Galan yesterday, plan to do EGD today. Hgb dropped to 8.8 from 10.8. Past Medical Family Social History Past Med/Fam/Surg Hx: No changes since H&P Allergies: Allergies levofloxacin [From Levaquin] Allergy (Verified 08/01/19 14:21) penicillin G Allergy (Verified 08/01/19 14:21) morphine Adverse Reaction (Verified 08/01/19 14:21) Review of Systems ROS: No change since H&P Vital Signs and I&O's Vital Signs: Temperature 99.9 F Pulse Rate 92 Respiratory Rate 20 Blood Pressure [Left Arm] 114/69 Blood Pressure 115/67 O2 Sat by Pulse Oximetry 99 Intake and Output: Intake & Output 07/31/19 08/01/19 08/02/19 08/03/19 23:59 23:59 23:59 23:59 Intake Total 515 / 515 3397 / 3397 866 / 866 Balance 515 / 515 3397 / 3397 866 / 866 Physical Exam Oriented: Normal and Other (cachectic male ) Eyes: Normal Nose: Normal Throat: Normal Cardiovascular: Normal Auscultation: Bowel Sounds: Normal Tenderness: Diffuse, Epigastric and Mild Skin: Normal Psychiatric: Normal Mood Description: Calm Affect: Normal Speech Pattern: Clear and Appropriate Laboratory and Diagnostics Result Diagrams: 08/03/19 04:40 08/03/19 04:40 Labs: Laboratory WBC 5.2 X10^3/uL (3.6-10.0) 08/03/19 04:40 RBC 3.28 X10^6/uL (4.7-6.0) L 08/03/19 04:40 Hgb 8.8 g/dL (13.5-18.0) L D 08/03/19 04:40 Hct 26.4 % (42.0-54.0) L 08/03/19 04:40 MCV 80.6 fL (80.0-100.0) 08/03/19 04:40 MCH 26.9 pg (27.0-34.0) L 08/03/19 04:40 MCHC 33.4 g/dL (33.0-35.0) 08/03/19 04:40 RDW 14.7 % (11.6-16.5) 08/03/19 04:40 Plt Count 186 X10^3/uL (150.0-450.0) 08/03/19 04:40 MPV 8.0 fL (7.4-11.0) 08/03/19 04:40 Neut % (Auto) 76.7 % (42.0-75.0) H 08/03/19 04:40 Lymph % (Auto) 11.5 % (21.0-51.0) L 08/03/19 04:40 [place] % (Auto) 9.9 % (0.0-13.0) 08/03/19 04:40 Eos % (Auto) 1.3 % (0.9-2.9) 08/03/19 04:40 Baso % (Auto) 0.6 % (0.2-1.0) 08/03/19 04:40 Neut # (Auto) 4.0 x10^3/uL (2.2-4.8) 08/03/19 04:40 Lymph # (Auto) 0.6 X10^3/uL (1.3-2.9) L 08/03/19 04:40 [place] # (Auto) 0.5 x10^3/uL (0.3-0.8) 08/03/19 04:40 Eos # (Auto) 0.1 x10^3/uL (0.0-0.2) 08/03/19 04:40 Baso # (Auto) 0.0 X10^3/uL (0.0-0.1) 08/03/19 04:40 Absolute Nucleated RBC 0.0 /100WBC 08/03/19 04:40 APTT 43.4 SECONDS (22.9-36.5) H 08/01/19 14:36 PTT Comment - 08/01/19 14:36 Sodium 137 mmol/L (136-145) 08/03/19 04:40 Corrected Sodium TNP 08/03/19 04:40 Potassium 3.3 mmol/L (3.5-5.1) L 08/03/19 04:40 Chloride 103 mmol/L (98-107) 08/03/19 04:40 Carbon Dioxide 27.6 mmol/L (21-32) 08/03/19 04:40 BUN 4 mg/dL (7-18) L 08/03/19 04:40 Creatinine 0.71 mg/dL (0.70-1.30) 08/03/19 04:40 Est GFR (MDRD) Af Amer > 60 (>60) 08/03/19 04:40 Est GFR (MDRD) Non-Af > 60 (>60) 08/03/19 04:40 Glucose 98 mg/dL (65-99) 08/03/19 04:40 Calcium 7.6 mg/dL (8.5-10.1) L 08/03/19 04:40 Corrected Calcium 9.4 mg/dL (8.5-10.1) 08/03/19 04:40 Magnesium 1.4 mg/dL (1.7-2.9) L 08/03/19 04:40 Total Bilirubin 0.30 mg/dL (0.2-1.0) 08/03/19 04:40 AST 29 Units/L (15-37) 08/03/19 04:40 ALT 8 Units/L (12-78) L 08/03/19 04:40 Alkaline Phosphatase 97 Units/L (46-116) 08/03/19 04:40 Total Protein 6.1 g/dL (6.4-8.2) L 08/03/19 04:40 Albumin 1.7 g/dL (3.4-5.0) L 08/03/19 04:40 Globulin 4.4 g/dL (2.5-4.5) 08/03/19 04:40 Albumin/Globulin Ratio 0.4 Ratio (1.1-2.1) L 08/03/19 04:40 Amylase 28 Units/L (25-115) 08/01/19 14:36 Lipase 56 Units/L (73-393) L 08/02/19 05:52 Specimen Type Clean catch urine 08/02/19 01:45 Urine Color Yellow (YELLOW) 08/02/19 01:45 Urine Appearance Clear (CLEAR) 08/02/19 01:45 Urine pH 6.0 (5.0 - 8.0) 08/02/19 01:45 Ur Specific [place] 1.015 (1.000-1.030) 08/02/19 01:45 Urine Protein 2+ (NEGATIVE) 08/02/19 01:45 Urine Glucose (UA) Negative (NEGATIVE) 08/02/19 01:45 Urine Ketones Negative (NEGATIVE) 08/02/19 01:45 Urine Occult Blood 1+ (NEGATIVE) 08/02/19 01:45 Urine Nitrite Negative (NEGATIVE) 08/02/19 01:45 Urine Bilirubin Negative (NEGATIVE) 08/02/19 01:45 Urine Urobilinogen 1+ (NORMAL) 08/02/19 01:45 Ur Leukocyte Esterase 2+ (NEGATIVE) 08/02/19 01:45 Urine RBC 3-5 /HPF (0-3) A 08/02/19 01:45 Urine WBC 3-5 /HPF (0-5) 08/02/19 01:45 Ur Squamous Epith Cells Rare /HPF (NEGATIVE) 08/02/19 01:45 Urine Bacteria Negative /HPF (NEGATIVE) 08/02/19 01:45 Ur Culture Indicated? No/not indicated 08/02/19 01:45 Stool Description Fob tube 08/01/19 15:05 Stl Occult Blood (IFOB) Positive (NEGATIVE) A 08/01/19 15:05 Blood Type O POSITIVE 08/01/19 14:48 Antibody Screen Negative 08/01/19 14:48 Plan (1) GI bleed: Status: Acute Qualifiers: GI bleed type/associated pathology: melena Qualified Code(s): K92.1 - Melena Plan: Hgb on admission 10.7, now 8.8 FOBT + Last EGD in February 2019. Continue to monitor H/H, not had any bleeding since admission Continue IVF and IV protonix EGD today, follow up results. (2) Abdominal pain: Status: Acute Qualifiers: Abdominal location: periumbilical Qualified Code(s): R10.33 - Periumbilical pain Plan: Keep NPO, continue hydration, follow up surgery recommendations. Continue pain control. Fever, blood cultures collected last night, will get UA, CXR. Start Rocephin and Flagyl. (3) Generalized weakness: Status: Acute Plan: dehydration and poor nutrition. Continue hydration. 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 (7) Protein-calorie malnutrition, moderate: Status: Acute Narrative Support Text: Patient was taking TPN via PICC line in the past. PICC line removed recently so since then has been eating liquids and small bites. HAD a PEG tube back in 2017. Plan: Dr. Galan will discuss further feeding tube options, follow up further plans. (8) Hypomagnesemia: Status: Acute Plan: replace as per protocol
[2019-08-03] MEDS: PHENERGAN INJ 25 MG IM PRN ×4 (09:08→23:01)
[2019-08-03] MEDS: ROCEPHIN VIAL 1 GRAM 1 G in NS 100 ML IV + SPIKE MINIBAG* 100 ML IV SCH ×2 (09:42)
[2019-08-03] MEDS: FLAGYL IV PREMIX 500 MG BAG 500 MG/100 ML BAG IV SCH ×3 (09:42→21:54)
--- NOTE | 2019-08-03 10:19 | RAD ---
History: Shortness of breath and fever Study: Portable AP chest Comparison: March 07, 2019 Findings: The lungs are grossly clear and the heart size is normal status post sternotomy. There is no edema or effusion or congestion. No significant bony abnormality is demonstrated. Impression: No evidence for active cardiopulmonary disease Reported By:
[2019-08-03] MEDS ORDERED: NS 500 ML IV 500 ML IV ONE (11:59)
[2019-08-03] MEDS ORDERED: DIPRIVAN VIAL 20 ML ONE ×2 (12:02→12:14)
[2019-08-03] MEDS: MAGNESIUM SULFATE 1 GRAM/100 mL PREMIX 1 GM/100 ML BAG IV PRN ×4 (12:51→17:18)
[2019-08-03] MEDS: TYLENOL 325 MG TAB PO PRN ×2 (12:56→19:11)
--- NOTE | 2019-08-03 13:38 | OR.IMMED ---
Immediate Post-Op Note - Immediate Post-Op Note Pre-Op Diagnosis: vomiting , GI bleeding . s/p gastric bypass . Post-Op Diagnosis: s/p gastric bypass . multiple small marginal ulcers at the gasrtro-jejunostomy . no actyive bleeding. no stricture . small gastric pouch Procedure: EGD with Bx. Surgeon/Nut Orchardist: Vanesa Specimens Removed: gastric Bx Drains: NONE Condition: Stable (to advance diet .)
[2019-08-03] MEDS ORDERED: DIPRIVAN VIAL ONE (14:09)
[2019-08-03] MEDS: KLOR-CON PO PRN (14:39)
[2019-08-03] MEDS ORDERED: STERILE WATER IRRIGATION IR ONE (14:42)
[2019-08-03 17:23] LABS: HEMATOCRIT 29.5 % (42.0-54.0); HEMOGLOBIN 9.7 g/dL (13.5-18.0)
[2019-08-04] MEDS: FLAGYL IV PREMIX 500 MG BAG 500 MG/100 ML BAG IV SCH ×4 (03:12→21:39)
[2019-08-04] MEDS: PHENERGAN INJ 25 MG IM PRN ×5 (03:20→19:57)
[2019-08-04] MEDS: DILAUDID INJ IVP PRN ×5 (03:25→21:15)
[2019-08-04 05:20] LABS: BASOPHILS % (AUTO) 0.6 % (0.2-1.0); EOSINOPHILS # (AUTO) 0.1 x10^3/uL (0.0-0.2); EOSINOPHILS % (AUTO) 1.6 % (0.9-2.9); HEMATOCRIT 26.1 % (42.0-54.0); HEMOGLOBIN 8.7 g/dL (13.5-18.0); LYMPHOCYTES # (AUTO) 0.9 X10^3/uL (1.3-2.9); LYMPHOCYTES % (AUTO) 16.3 % (21.0-51.0); MEAN CORPUSCULAR HEMOGLOBIN 26.9 pg (27.0-34.0); MEAN CORPUSCULAR HGB CONC 33.5 g/dL (33.0-35.0); MEAN CORPUSCULAR VOLUME 80.4 fL (80.0-100.0); MEAN PLATELET VOLUME 7.8 fL (7.4-11.0); MONOCYTES # (AUTO) 0.6 x10^3/uL (0.3-0.8); MONOCYTES % (AUTO) 10.8 % (0.0-13.0); NEUTROPHILS # (AUTO) 3.8 x10^3/uL (2.2-4.8); NEUTROPHILS % (AUTO) 70.7 % (42.0-75.0); PLATELET COUNT 199 X10^3/uL (150.0-450.0); RED BLOOD COUNT 3.24 X10^6/uL (4.7-6.0); RED CELL DISTRIBUTION WIDTH 14.6 % (11.6-16.5); WHITE BLOOD COUNT 5.4 X10^3/uL (3.6-10.0)
[2019-08-04 05:40] LABS: ALANINE AMINOTRANSFERASE 9 Units/L (12-78); ALBUMIN 1.6 g/dL (3.4-5.0); ALKALINE PHOSPHATASE 85 Units/L (46-116); ASPARTATE AMINO TRANSFERASE 30 Units/L (15-37); BLOOD UREA NITROGEN 2 mg/dL (7-18); CALCIUM 7.6 mg/dL (8.5-10.1); CARBON DIOXIDE 30.2 mmol/L (21-32); CHLORIDE 103 mmol/L (98-107); COR CA(FOR HYPOALB) 9.5 mg/dL (8.5-10.1); CREATININE 0.74 mg/dL (0.70-1.30); SODIUM 137 mmol/L (136-145); TOTAL PROTEIN 6.1 g/dL (6.4-8.2); eGFR NON BLACK RACES > 60 (>60)
[2019-08-04] MEDS: KLOR-CON PO PRN (05:54)
[2019-08-04] MEDS: NS 1000 ML 1,000 ML IV SCH (06:32)
[2019-08-04] MEDS: PROTONIX INJ 40 MG VIAL 80 MG in NS 100 ML IV 80 ML IV SCH ×3 (06:33→15:48)
[2019-08-04] MEDS ORDERED: MAGNESIUM SULFATE 1 GRAM/100 mL PREMIX 1 G/100 ML BAG IV ONE (08:37)
[2019-08-04] MEDS: ROCEPHIN VIAL 1 GRAM 1 G in NS 100 ML IV + SPIKE MINIBAG* 100 ML IV SCH (09:51)
[2019-08-04] MEDS ORDERED: PHARMACY CONSULT - VANCOMYCIN XX SCH (11:00)
[2019-08-04] MEDS: FOLIC ACID TAB 1 MG PO SCH (14:43)
[2019-08-04] MEDS: CYTOTEC PO SCH ×2 (14:43→21:39)
[2019-08-04] MEDS: VANCOMYCIN HCL 1 G in D5W 250 ML IV 250 ML IV SCH ×2 (14:43→21:30)
[2019-08-04] MEDS: TYLENOL 325 MG TAB PO PRN (22:15)
[2019-08-05] MEDS: PROTONIX INJ 40 MG VIAL 80 MG in NS 100 ML IV 80 ML IV SCH ×2 (03:50→15:06)
[2019-08-05] MEDS: FLAGYL IV PREMIX 500 MG BAG 500 MG/100 ML BAG IV SCH ×3 (03:55→15:09)
[2019-08-05] MEDS: DILAUDID INJ IVP PRN ×4 (05:04→17:29)
[2019-08-05] MEDS: PHENERGAN INJ 25 MG IM PRN ×3 (05:06→15:52)
[2019-08-05] MEDS: VANCOMYCIN HCL 1 G in D5W 250 ML IV 250 ML IV SCH ×2 (06:07→14:30)
[2019-08-05 06:43] LABS: BASOPHILS % (AUTO) 0.7 % (0.2-1.0); EOSINOPHILS # (AUTO) 0.1 x10^3/uL (0.0-0.2); EOSINOPHILS % (AUTO) 1.7 % (0.9-2.9); LYMPHOCYTES # (AUTO) 0.7 X10^3/uL (1.3-2.9); LYMPHOCYTES % (AUTO) 17.2 % (21.0-51.0); MEAN CORPUSCULAR HEMOGLOBIN 26.8 pg (27.0-34.0); MEAN CORPUSCULAR HGB CONC 33.4 g/dL (33.0-35.0); MEAN CORPUSCULAR VOLUME 80.4 fL (80.0-100.0); MEAN PLATELET VOLUME 7.8 fL (7.4-11.0); MONOCYTES # (AUTO) 0.4 x10^3/uL (0.3-0.8); MONOCYTES % (AUTO) 9.6 % (0.0-13.0); NEUTROPHILS % (AUTO) 70.8 % (42.0-75.0); PLATELET COUNT 170 X10^3/uL (150.0-450.0); RED BLOOD COUNT 3.36 X10^6/uL (4.7-6.0); RED CELL DISTRIBUTION WIDTH 14.9 % (11.6-16.5); WHITE BLOOD COUNT 4.3 X10^3/uL (3.6-10.0)
[2019-08-05 06:58] LABS: ALANINE AMINOTRANSFERASE 11 Units/L (12-78); ALBUMIN 1.7 g/dL (3.4-5.0); ALKALINE PHOSPHATASE 82 Units/L (46-116); ASPARTATE AMINO TRANSFERASE 31 Units/L (15-37); BLOOD UREA NITROGEN 2 mg/dL (7-18); CALCIUM 7.8 mg/dL (8.5-10.1); CARBON DIOXIDE 32.5 mmol/L (21-32); CHLORIDE 103 mmol/L (98-107); COR CA(FOR HYPOALB) 9.6 mg/dL (8.5-10.1); CREATININE 0.77 mg/dL (0.70-1.30); MAGNESIUM 1.5 mg/dL (1.7-2.9); SODIUM 140 mmol/L (136-145); TOTAL PROTEIN 6.4 g/dL (6.4-8.2); eGFR NON BLACK RACES > 60 (>60)
[2019-08-05] MEDS: NS 1000 ML 1,000 ML IV SCH (07:52)
[2019-08-05] MEDS: ROCEPHIN VIAL 1 GRAM 1 G in NS 100 ML IV + SPIKE MINIBAG* 100 ML IV SCH (08:33)
[2019-08-05] MEDS: CYTOTEC PO SCH (08:35)
[2019-08-05] MEDS: FOLIC ACID TAB 1 MG PO SCH (08:35)
[2019-08-05] MEDS ORDERED: PROCRIT or EPOGEN SC ONE (09:06)
[2019-08-05] MEDS: MAGNESIUM SULFATE 1 GRAM/100 mL PREMIX 1 GM/100 ML BAG IV PRN ×2 (10:09→11:46)
[2019-08-05] MEDS: KLOR-CON PO PRN (10:31)
[2019-08-05] MEDS ORDERED: OXYFAST ORAL CONCENTRATE PO PRN (12:00)
[2019-08-05] MEDS ORDERED: NS 100 ML IV 100 ML IV ONE (13:11)
[2019-08-05] MEDS ORDERED: PHARMACY COMMENT IV NR (13:30)
--- NOTE | 2019-08-05 14:07 | CT ---
HISTORY: Rapid onset of right neck mass Study: CT soft tissue neck with and without contrast Comparison: None Technique: Multiple axial images of the soft tissue neck were obtained from skull base to the aortic arch before and after the administration of IV contrast. Sagittal and coronal reformats were performed and reviewed.Dose reduction techniques including Automated Exposure Control (AEC) and adjustment of mA and kV were utlized. Findings: There is lack of IV enhancement within the right internal jugular vein extending proximally through the sigmoid and transverse sinuses. There is focal expansion of the right internal jugular vein with masslike configuration measuring approximately 4.7 x 4.9 cm at the level of the larynx and this expansion extends inferiorly into the chest. The contrast bolus from the right arm terminates in the subclavian vein with multiple collaterals, suggesting occlusion extends into the right subclavian vein. There is normal enhancement of the left brachiocephalic vein and proximal SVC. The masslike expansion deviates the airway to the left without significant narrowing. The right common carotid arteries deviated posteriorly. Mildly prominent right cervical lymph nodes may be reactive. Visible portions of the brain, orbits, salivary glands grossly unremarkable. Mucous retention cysts in the paranasal sinuses. Mastoid air cells aerated. Included lung apices appear grossly clear. Soft tissues of the tongue and floor of mouth appear grossly symmetric. Laryngeal soft tissues appear symmetric. 2.4 cm left thyroid nodule. 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 Tumor thrombus is a consideration. The lack of enhancement of the right internal jugular system extends proximally through the transverse sinus. Unclear if this is secondary to absent forward flow or propagation of clot. MRI of the neck and head with and without contrast is recommended. 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 Left thyroid nodule will require ultrasound characterization after resolution of acute illness. Mildly prominent right cervical lymph nodes may be reactive. Reported By:
[2019-08-05 14:15] LABS: CREATININE 0.73 mg/dL (0.70-1.30); VANCOMYCIN,TROUGH 10.5 ug/mL (15-20)
[2019-08-05] MEDS ORDERED: LOVENOX INJ 80 MG SYR SC SCH (16:09)
[2019-08-05 17:00] VITALS: BP 133/71
== END 2019-08-05 18:35 | disposition short-term general hospital (02) | DRG 378 ==
LOC: ER 14:18 → ICU 14:18
PROVIDERS: ADMIT Internal Medicine; ATTEND Internal Medicine
DX: K21.9 Gastro-esophageal reflux disease without esophagitis; K27.4 Chronic or unspecified peptic ulcer, site unspecified, with hemorrhage; R22.1 Localized swelling, mass and lump, neck; Z98.84 Bariatric surgery status; I95.89 Other hypotension; E87.6 Hypokalemia; R10.33 Periumbilical pain; E86.0 Dehydration; E83.42 Hypomagnesemia; E44.0 Moderate protein-calorie malnutrition; E86.1 Hypovolemia; B95.61 Methicillin susceptible Staphylococcus aureus infection as the cause of diseases classified elsewhere; R53.1 Weakness; Z98.890 Other specified postprocedural states
CPT/HCPCS: 36415; 70492; 71010; 71045; 74176; 80053; 80202; 81001; 82150; 82270; 82565; 82607; 82670; 82728; 82746; 83540; 83690; 83735; 84132; 84403; 84466; 85014; 85018; 85025; 85730; 86850; 86900; 86901; 87040; 87077; 87086; 87088; 87186; 96365; 96367; 96372; 96374; 96375; 99284; A4217; A4222; C9113; S0030; S0191; G0378; J0696; J0885; J1170; J1650; J2405; J2550; J2704; J3370; J3475; J3480; J3490; J7030; J7040; J7050; J7060